=== PATIENT | female | born 1935 | race Two or more races ===

== ENCOUNTER 2017-11-03 03:34 | Inpatient (IN) | payer MEDICARE, OTHER ==
[~2017-11-03] VITALS: Ht 149.9 cm; Wt 62.6 kg
--- NOTE | 2017-11-03 03:45 | NUR ---
PT BIBRA 38 FROM HOME C/O SOB X20 MINS DENTAL PRACTITIONER. PER RA, ALBUTEROL TREATMENT GIVEN DENTAL PRACTITIONER. WHEEZES/ MINIMALLY DIMINISHED BREATH SOUNDS AUSCULATED. PT STATES CHRONIC PAIN 10/10 WAIST DOWN. PT IS AAOX4. ROOM AIR SPO2 92%. PT PLACED ON 2-3L/M NC, SPO2 97%. PT'S SKIN WNL WITH BRUISING OF THE R ARM/HAND NOTED. PER PT BRUISING IS FROM RECENT HOSPITALIZATION AND IV INSERTIONS. RESP EVEN AND MILDLY LABORED. MILD S/S OF ACUTE DISTRESS NOTED. PT SAFETY AND COMOFRT MEASURES IN PLACE. PT PLACED ON MONITOR AND POX. AWAITING MD FOR EVAL.
--- NOTE | 2017-11-03 03:51 | NUR ---
DR. SLOAN AT BEDSIDE FOR EVAL.
--- NOTE | 2017-11-03 03:52 | NUR ---
Mynor ramey in [facility] - 11/03/17 at 0357 by EVAN MD HERNANDEZ FOR DIEGO.
--- NOTE | 2017-11-03 03:56 | NUR ---
PHLEBOTOMY BEDSIDE FOR BLOOD DRAW.
--- NOTE | 2017-11-03 04:17 | NUR ---
CALLED RT FOR BREATHING TX.
[2017-11-03] MEDS ORDERED: ONDANSETRON HCL/PF 4 MG/2 ML VIAL ONE (04:18)
[2017-11-03] MEDS ORDERED: MORPHINE SULFATE INJ 4 MG/ML DISP.SYRIN ONE (04:18)
--- NOTE | 2017-11-03 04:21 | NUR ---
RT BEDSIDE WITH PT.
[2017-11-03 04:22] LABS: CALCIUM, SERUM 8.8 mg/dL (8.5-10.1); CARBON DIOXIDE 22 mmol/L (21-32); CHLORIDE 104 mmol/L (98-107); GLUCOSE 120 mg/dL (74-106); SODIUM SERUM 137 mmol/L (136-145); UREA NITROGEN, BLOOD 15 mg/dL (7-18)
[2017-11-03] MEDS ORDERED: ALBUTEROL FS 2.5 MG/3 ML VIAL.NEB ONE (04:26)
[2017-11-03 04:27] LABS: INR 0.95 (0.87-1.13)
[2017-11-03] MEDS ORDERED: methylPREDNISolone SOD SUCC 125 MG/2ML VIAL ONE (04:29)
[2017-11-03 04:30] LABS: TROPONIN I < 0.017 ng/mL (0.00-0.056)
[2017-11-03] MEDS ORDERED: methylPREDNISolone SOD SUCC 125 MG/2ML VIAL IV ONE (04:30)
[2017-11-03] MEDS ORDERED: ALBUTEROL FS 2.5 MG/0.5 ML VIAL.NEB NEB ONE (04:30)
[2017-11-03] MEDS ORDERED: ONDANSETRON HCL/PF - ER 4 MG/2 ML VIAL IV ONE (04:30)
[2017-11-03] MEDS ORDERED: MORPHINE SULFATE INJ 2 MG/ML DISP.SYRIN IV ONE (04:30)
[2017-11-03] MEDS ORDERED: IPRATROPIUM NEB FS 0.5 MG/2.5 ML AMPUL.NEB NEB ONE (04:30)
[2017-11-03 04:35] LABS: ALANINE AMINOTRANSFERASE 30 U/L (12-78); ALBUMIN 3.3 g/dL (3.4-5.0); ALKALINE PHOSPHATASE 43 U/L (46-116); ASPARTATE AMINOTRANSFERASE 26 U/L (15-37); B-TYPE NATRIURETIC PEPTIDE 1336 PG/ML (0-125); BILIRUBIN,DIRECT 0.1 mg/dL (0.0-0.2); BILIRUBIN,TOTAL 0.5 mg/dL (0.2-1.0); TOTAL PROTEIN, SERUM 6.6 g/dL (6.4-8.2)
[2017-11-03] MEDS ORDERED: LEVOFLOXACIN 750 MG /D5W 150ML 150 ML IV ONE (04:48)
[2017-11-03 04:56] LABS: BASOPHILS % (AUTO) 0.2 % (0.0-2.0); EOSINOPHILS % (AUTO) 9.1 % (0.0-6.0); HEMATOCRIT 35 % (33-45); HEMOGLOBIN 11.8 g/dL (11.5-14.8); LYMPHOCYTES # (AUTO) 2.7 /CMM (0.8-4.8); LYMPHOCYTES % (AUTO) 32.6 % (20.0-44.0); MEAN CORPUSCULAR HGB CONC 34 g/dl (31.0-36.0); MEAN CORPUSCULAR VOLUME 100 fL (82-100); MONOCYTES # (AUTO) 1.1 /CMM (0.1-1.30); MONOCYTES % (AUTO) 12.9 % (2.0-12.0); NEUTROPHILS # (AUTO) 3.6 /CMM (1.8-8.9); NEUTROPHILS % (AUTO) 45.2 % (43.0-81.0); PLATELET COUNT (AUTO) 247 /CMM (150-450); RDW COEFFICIENT OF VARIATION 13.8 (11.5-15.0)
[2017-11-03 04:59] LABS: ABG BASE EXCESS -4.8 mmol/L; ABG OXYGEN SATURATION 89.6 % (92.0-98.5); ABG PCO2 38.2 mmHg (35.0-45.0); ABG PH 7.346 (7.350-7.450); ABG PO2 61.6 mmHg (75.0-100.0); AaDO2 42.4 mmHg; COHb 0.6 % (0.5-1.5); MetHb 0.3 % (0.0-1.5); O2Hb 88.8 % (94.0-97.0); SITE, ABG Right Radial; VENT MODE, BG RA
[2017-11-03] MEDS ORDERED: ACETAMINOPHEN 325 MG TABLET PO PRN (05:00)
[2017-11-03] MEDS ORDERED: Z GUARD REMEDY 2 OZ OINT TP PRN (05:00)
[2017-11-03] MEDS ORDERED: LEVOFLOXACIN 750 MG /D5W 150ML PIGGYBACK IV ONE (05:00)
[2017-11-03] MEDS ORDERED: MAGNESIUM HYDROXIDE 30 ML UDC PO PRN (05:00)
[2017-11-03] MEDS ORDERED: HYDROCODONE/APAP 5/325MG 1 EACH TABLET PO PRN (05:00)
[2017-11-03] MEDS ORDERED: MAG HYDROX/AL HYDROX/SIMETH 30 ML UDC PO PRN (05:00)
[2017-11-03] MEDS ORDERED: ONDANSETRON HCL/PF 4 MG/2 ML VIAL IVP PRN (05:00)
[2017-11-03] MEDS ORDERED: ZOLPIDEM TARTRATE 5 MG TABLET PO PRN (05:00)
[2017-11-03] MEDS ORDERED: FUROSEMIDE 20 MG/2 ML VIAL IV ONE (05:00)
--- NOTE | 2017-11-03 05:09 | NUR ---
TELE 324-2
--- NOTE | 2017-11-03 05:16 | NUR ---
PT AND PT'S DAUGHTER UNABLE TO PROVIDE LIST OF HOME MEDICATIONS. PT UNABLE TO RECAL HOME MEDICATION. PT'S DAUGHTER STATES SHE WILL "TRY AND BRING THE LIST TOMORROW". MADE AWARE.
[2017-11-03 05:35] VITALS: BP 141/70
[2017-11-03 05:38] LABS: THYROID STIMULATING HORMONE 2.248 uIU/mL (0.358-3.74)
[2017-11-03 05:48] LABS: RED BLOOD CELL COUNT(AUTO) 3.23 MIL/uL (4.0-5.2); WHITE BLOOD COUNT (AUTO) 7.6 K/uL (4.3-11.0)
[2017-11-03 06:28] VITALS: BP 141/70
--- NOTE | 2017-11-03 06:30 | NUR ---
FAMILY ENGAGEMENT SPECIALIST NOTES AWAKE & RESPONSIVE. NOT IN ANY DISTRESS. NO SOB NOTED. DENIES ANY PAIN OR DISCOMFORT AT THIS TIME. ON TELE SR @ 96 WITH IV-HL PATENT & INTACT. MONITORED ACCORDINGLY. CALL LIGHT WITHIN REACH. BED IN LOWEST POSITION. SR UP X 2 FOR SAFETY. WILL ENDORSE TO NEXT SHIFT.
--- NOTE | 2017-11-03 07:13 | NUR ---
TRIM AND BURR OPERATOR OPENING NOTES RECEIVED PT FROM NIGHTSHIFT NURSE IN STABLE CONDITION. PT IS A/O X3. NO SOB NOTED AT THIS TIME. BREATHING IS EVEN AND UNLABORED PT STATES "MY BREATHING HAS GOTTEN MUCH BETTER." SHE IS SATING @ 96% ON RA. SHE IS CURRENTLY SINUS RHYTHM ON THE TELE MONITOR WITH A HR OF 87. IV TO RIGHT RA NOTED TO BE PATENT AND INTACT. NO REDNESS OR SIGNS OF INFILTRATION NOTED. BED IN LOW LOCKED POSITION, SIDE RAILS UP X2, CALL LIGHT WITHIN REACH. PT'S DAUGHTER AT BEDSIDE. WILL CONTINUE TO MONITOR
[2017-11-03] MEDS: ALBUTEROL FS 2.5 MG/3 ML VIAL.NEB NEB SCH ×4 (07:35→23:39)
[2017-11-03 08:00] VITALS: BP 135/86
--- NOTE | 2017-11-03 08:15 | NUR ---
MED RECON: A CONSENT WAS SENT TO [facility] TO OBTAIN PT'S MEDICAL RECORDS PER DR. VEE;S REQUEST IN ORDER TO GET A COMPLETE HOME MEDICATION LIST PT WAS RECENTLY DISCHARGED FROM THEIR FACILITY. PT SIGNED CONSENT IN ORDER TO DO SO. FAX WAS SUCCESSFULLY STN. WILL ALERT MED RECON NURSE ONCE A LIST IS OBTAINED.
[2017-11-03] MEDS: PANTOPRAZOLE 40 MG TABLET.DR PO SCH (08:43)
[2017-11-03] MEDS: ASPIRIN 325 MG TABLET PO SCH (08:44)
[2017-11-03] MEDS: CLOPIDOGREL BISULFATE 75 MG TABLET PO SCH (08:44)
[2017-11-03] MEDS: methylPREDNISolone SOD SUCC 40 MG/ML VIAL IV SCH ×2 (08:44→13:01)
[2017-11-03] MEDS ORDERED: FUROSEMIDE 20 MG/2 ML VIAL IV SCH (09:00)
--- NOTE | 2017-11-03 09:02 | NUR ---
MS RN NOTES: MED RECON FOLLOW UP DOCUMENTS OBTAINED FROM [facility]. MED RECON NURSE NOTIFIED AND MEDICATION WERE IMOUTED INTO THE SYSTEM. WILL NOTIFY .
[2017-11-03] MEDS ORDERED: CARV6.252 PO (10:25)
[2017-11-03] MEDS ORDERED: HYDR-552 PO (10:25)
[2017-11-03] MEDS ORDERED: FERR325T23 PO (10:25)
[2017-11-03] MEDS ORDERED: OLOP5DRO EACHEYE (10:25)
[2017-11-03] MEDS ORDERED: ASPI-1152 PO (10:25)
[2017-11-03] MEDS ORDERED: ATOR40TA PO (10:26)
[2017-11-03] MEDS ORDERED: CLOP75TA15 PO (10:26)
[2017-11-03] MEDS ORDERED: BIMA2.5D5 EACHEYE (10:26)
[2017-11-03] MEDS ORDERED: BENZ-38 PO (10:26)
[2017-11-03] MEDS ORDERED: MULT-1168 PO (10:26)
[2017-11-03] MEDS ORDERED: CALC-7 PO (10:26)
[2017-11-03] MEDS ORDERED: CYCL5TAB PO (10:26)
[2017-11-03] MEDS: IPRATROPIUM NEB FS 0.5 MG/2.5 ML AMPUL.NEB NEB SCH ×3 (15:40→23:40)
[2017-11-03] MEDS: HYDROCODONE/APAP 10/325MG 1 EA TABLET PO PRN ×2 (15:45→20:31)
[2017-11-03 16:00] VITALS: BP 118/68
[2017-11-03] MEDS: ATORVASTATIN 40 MG TABLET PO SCH (18:28)
--- NOTE | 2017-11-03 18:49 | NUR ---
MS RN CLOSING NOTES PT REMAINS IN STABLE CONDITION. ALL NEEDS WERE MET DURING SHIFT AND ORDERS CARRIED OUT ACCORDINGLY. ALL DUE MEDS GIVEN. BREATHING REMAINS EVEN AND INTACT. NO SOB NOTED AT THIS TIME. PAIN PROPERLY MANAGED WITH INCREASED NORCO DOSE. SAFETY MEASURES REMAIN IN PLACE. FAMILY AT BEDSIDE. WILL ENDORSE TO NIGHTSHIFT NURSE FOR RAMANA
--- NOTE | 2017-11-03 19:30 | NUR ---
MS/RN NOTES RECEIVED PT. LYING IN BED. PT. IS AWAKE, ALERT AND ORIENTED X4. BREATHING EVEN AND UNLABORED ON ROOM AIR. NO SOB, RESPIRATORY DISTRESS OR COMPLAINTS OF PAIN NOTED AT THIS TIME. PT. WITH RIGHT FOREARM 18 GAUGE IV SALINE LOCK PRESENT, PATENT AND INTACT. PT. WITH FAMILY MEMBER PRESENT AT BEDSIDE. BED LOCKED AND IN LOWEST POSITION, SIDE RAILS UP X3, BED ALARM ON, CALL LIGHT WITHIN REACH, WILL CONTINUE TO MONITOR.
[2017-11-03 20:00] VITALS: BP 130/67
[2017-11-03] MEDS: LATANOPROST EYE DROP 0.005% 2.5 ML BOTTLE OP SCH (22:00)
--- NOTE | 2017-11-03 22:50 | NUR ---
MS/RN NOTES PT. LATANOPROST EYE DROPS NOT AVAILABLE IN PT. GARCIA. CALLED NURSING MANAGER TRANSFER PER MANAGER TRANSFER NEIDA MEDICATION IS NOT AVAILABLE AND WILL HAVE TO BE PROVIDED BY PHARMACY TOMORROW. WILL ENDORSE TO DAYSHIFT NURSE. WILL CONTINUE TO MONITOR.
[2017-11-04] MEDS: HYDROCODONE/APAP 10/325MG 1 EA TABLET PO PRN ×4 (00:45→22:53)
--- NOTE | 2017-11-04 02:10 | NUR ---
MS/RN NOTES GAVE REPORT AND ENDORSED PT. TO ANTOINE ANDERSON. PT. IS LYING IN BED RESTING. BREATHING EVEN AND UNLABORED ON ROOM AIR. NO SOB, RESPIRATORY DISTRESS OR COMPLAINTS OF PAIN NOTED AT THIS TIME.
--- NOTE | 2017-11-04 02:16 | NUR ---
MS RN NOTES: RECEIVED PT FROM RNPHILIP. PT ON ROOM AIR AND TOLERATING WELL. PT AWAKE AT THIS TIME BEING ASSISTED WITH BEING CLEANED AND CHANGED. PT HAS IV ON R FOREARM #18G AND IS PATENT AND INTACT. CURRENTLY S/L. BED ALARM ACTIVATED. CALL LIGHT WITHIN PT'S REACH. BED KEPT IN LOW, LOCKED POSITION, AND SIDE RAILS X 2UP. WILL CONTINUE TO MONITOR PT.
[2017-11-04] MEDS: IPRATROPIUM NEB FS 0.5 MG/2.5 ML AMPUL.NEB NEB SCH ×6 (02:55→23:06)
[2017-11-04] MEDS: ALBUTEROL FS 2.5 MG/3 ML VIAL.NEB NEB SCH ×6 (02:56→23:06)
[2017-11-04 06:18] LABS: BASOPHILS % (AUTO) 0.2 % (0.0-2.0); HEMATOCRIT 30 % (33-45); HEMOGLOBIN 10.1 g/dL (11.5-14.8); LYMPHOCYTES # (AUTO) 0.9 /CMM (0.8-4.8); LYMPHOCYTES % (AUTO) 14.6 % (20.0-44.0); MEAN CORPUSCULAR HGB CONC 34 g/dl (31.0-36.0); MEAN CORPUSCULAR VOLUME 99 fL (82-100); MONOCYTES # (AUTO) 0.2 /CMM (0.1-1.30); MONOCYTES % (AUTO) 3.5 % (2.0-12.0); NEUTROPHILS # (AUTO) 4.9 /CMM (1.8-8.9); NEUTROPHILS % (AUTO) 81.7 % (43.0-81.0); PLATELET COUNT (AUTO) 228 /CMM (150-450); RDW COEFFICIENT OF VARIATION 14.6 (11.5-15.0)
--- NOTE | 2017-11-04 06:20 | NUR ---
MS RN CLOSING NOTES: ALL NEEDS WERE ATTENDED AND ANTICIPATED FOR. PT ON ROOM AIR AND TOLERATING WELL. PT KEPT CLEAN, DRY, AND COMFORTABLE. PT ASLEEP AT THIS TIME AND RESTING COMFORTABLY. NO S/S OF DISTRESS. IV REMAINS INTACT. CURRENTLY S/L. BED ALARM ACTIVATED. CALL LIGHT WITHIN PT'S REACH. BED KEPT IN LOW, LOCKED POSITION, AND SIDE RAILS X 2UP. WILL ENDORSE TO AM NURSE FOR RAMANA.
[2017-11-04 06:39] LABS: TROPONIN I < 0.017 ng/mL (0.00-0.056)
[2017-11-04 06:46] LABS: ALANINE AMINOTRANSFERASE 28 U/L (12-78); ALBUMIN 3.1 g/dL (3.4-5.0); ALKALINE PHOSPHATASE 35 U/L (46-116); ASPARTATE AMINOTRANSFERASE 27 U/L (15-37); BILIRUBIN,TOTAL 0.4 mg/dL (0.2-1.0); CALCIUM, SERUM 8.5 mg/dL (8.5-10.1); CARBON DIOXIDE 27 mmol/L (21-32); CHLORIDE 100 mmol/L (98-107); CREATININE 1.2 mg/dL (0.6-1.3); GLUCOSE 165 mg/dL (74-106); MAGNESIUM 1.7 mg/dL (1.8-2.4); PHOSPHORUS 3.3 mg/dL (2.5-4.9); POTASSIUM 3.9 mmol/L (3.5-5.1); SODIUM SERUM 137 mmol/L (136-145); TOTAL PROTEIN, SERUM 6.2 g/dL (6.4-8.2); UREA NITROGEN, BLOOD 22 mg/dL (7-18)
--- NOTE | 2017-11-04 06:54 | NUR ---
MS RN NOTES: DR. VEE AT BEDSIDE.
--- NOTE | 2017-11-04 07:35 | NUR ---
RN OPENING NOTES RECEIVED PT. PT IS STABLE AND RESTING IN BED. NO S/S OF RESP DISTRESS OR SOB. PT DOES NOT APPEAR TO BE IN PAIN AT THIS TIME. IV ACCESS LOCATED ON RIGHT FA 18G, CURRENTLY SL. PT TO HAVE PT/OT EVAL & CXR TODAY. SAFETY MEASURES IN PLACE, CALL LIGHT WITHIN REACH. WILL CONTINUE TO MONITOR.
[2017-11-04] MEDS: Magnesium 1GM/D5W 100ML PREMIX 100 ML IV SCH ×2 (07:58→08:35)
[2017-11-04 08:00] VITALS: BP 115/57
[2017-11-04] MEDS: ASPIRIN 325 MG TABLET PO SCH (08:10)
[2017-11-04] MEDS: PANTOPRAZOLE 40 MG TABLET.DR PO SCH (08:10)
[2017-11-04] MEDS: CALCIUM CARB 250MG /VITAMIN D 1 UDTAB PO SCH (08:11)
[2017-11-04] MEDS: MULTIPLE VIT (LYCOPENE/FA/MV,CA,IRON,MIN/LUT)1 TAB PO SCH (08:11)
[2017-11-04] MEDS: FUROSEMIDE 20 MG TABLET PO SCH (08:11)
[2017-11-04] MEDS: OLOPATADINE HCL 0.1% OPHTH BOTTLE EACHEYE SCH ×2 (08:11→18:16)
[2017-11-04] MEDS: CARVEDILOL 6.25 MG TABLET PO SCH ×2 (08:12→17:00)
[2017-11-04 08:18] VITALS: BP 115/57
[2017-11-04] MEDS ORDERED: methylPREDNISolone SOD SUCC 40 MG/ML VIAL IV SCH (09:00)
[2017-11-04] MEDS: FERROUS SULFATE (325 MG) 325 MG/TAB TABLET PO SCH (09:51)
[2017-11-04] MEDS: CLOPIDOGREL BISULFATE 75 MG TABLET PO SCH (09:51)
--- NOTE | 2017-11-04 10:30 | NUR ---
RN NOTES PT IV FOUND TO BE INFILTRATED. RIGHT FA IV ACCESS REMOVED. 22G IV CATH INSERTED INTO LEFT FA. WILL CONTINUE TO MONITOR.
[2017-11-04] MEDS: predniSONE 10 MG TABLET PO SCH (13:18)
[2017-11-04 15:58] VITALS: BP 109/56
[2017-11-04] MEDS: ATORVASTATIN 40 MG TABLET PO SCH (18:17)
--- NOTE | 2017-11-04 18:45 | NUR ---
RN CLOSING NOTE PT IN BED RESTING. NO S/S OF RESP DISTRESS OR SOB. NO C/O PAIN. PER MD NOTE, TO BEGIN DC PLANNING FOR PT. ALL PT NEEDS ANTICIPATED AND MET. SAFETY MEASURES IN PLACE, CALL LIGHT WITHIN REACH. WILL ENDORSE TO PAPER PRODUCTION ENGINEER FOR RAMANA.
--- NOTE | 2017-11-04 19:40 | NUR ---
RN INITIAL NOTES: RECEIVED REPORT FORM SIMON SCHULTZ, PT IN BED, AWAKE, A/O X3, ON RA RESPIRATION EVEN AND UNLABORED, DENIES ANY PAIN OR DISCOMFORT AT THIS TIME. IV ACCESS PATENT AND FLUSHING WELL, NOTED DRY BLOOD AROUND THE SITE, GOOD BLOOD RETURN NOTED. BLE OFFLOADED. SAFETY PRECAUTIONS FOR FALL INITIATED CALL LIGHT IN REACH, WILL CONTINUE TO MONITOR
[2017-11-04 20:00] VITALS: BP 126/70
[2017-11-04 20:36] VITALS: BP 126/70
[2017-11-04] MEDS: LATANOPROST EYE DROP 0.005% 2.5 ML BOTTLE OP SCH (22:00)
--- NOTE | 2017-11-04 22:53 | NUR ---
PRN NORCO: PT C/O PAIN ON HER WAIST DOWN TO RIGHT FOOT, STATED ITS 01/30 PRN NORCO 10/325 MG TAB PO ADMINISTERED TO THE PT AT THIS TIME, WILL CONTINUE TO MONITOR AND REASSESS
[2017-11-05] MEDS: IPRATROPIUM NEB FS 0.5 MG/2.5 ML AMPUL.NEB NEB SCH ×4 (02:58→14:58)
[2017-11-05] MEDS: ALBUTEROL FS 2.5 MG/3 ML VIAL.NEB NEB SCH ×4 (02:58→14:58)
[2017-11-05] MEDS: HYDROCODONE/APAP 10/325MG 1 EA TABLET PO PRN ×2 (03:51→08:33)
--- NOTE | 2017-11-05 03:51 | NUR ---
PRN NORCO: PT C/O 01/30 RIGHT HIP PAIN REQUESTING FOR NORCO, PRN NORCO 10/325 MG TAB PO ADMINISTERED TO THE PT, WILL CONTINUE TO MONITOR AND REASSESS
--- NOTE | 2017-11-05 05:22 | NUR ---
PRN TYLENOL: PT C/O 09/30 RIGHT HIP PAIN REQUESTING FOR PAIN MEDICATION, PRN TYLENOL 650 MG TAB PO ADMINISTERED TO THE PT AT THIS TIME, NORCO NOT DUE TILL 0800AM
--- NOTE | 2017-11-05 06:52 | NUR ---
RN CLOSING NOTES: PT IN BED, DENIES ANY PAIN OR DISCOMFORT AT THIS TIME. IV ACCESS REMAINS PATENT AND FLUSHING WELL, ON HL. BLE OFFLOADED. VS REMAINS STABLE, NEEDS ATTENDED. FOR DC PLANNING, EXIT CARE COMPLETED. SAFETY PRECAUTIONS FOR FALL REMAINS ENGAGED, CALL LIGHT IN REACH, WILL ENDORSE TO DAY RN FOR RAMANA.
--- NOTE | 2017-11-05 07:23 | NUR ---
RN OPENING NOTES RECEIVED PT. PT IS STABLE AND RESTING IN BED. NO S/S OF RESP DISTRESS OR SOB. PT DOES NOT APPEAR TO BE IN PAIN AT THIS TIME. IV ACCESS LOCATED ON LEFT FA 22G, CURRENTLY SL. PT TO HAVE F/U PT ON 11/05 OR 11/06. PER MD NOTE, D/C PLANNING TO BEGIN. SAFETY MEASURES IN PLACE, CALL LIGHT WITHIN REACH. WILL CONTINUE TO MONITOR.
[2017-11-05 08:21] VITALS: BP 116/53
[2017-11-05] MEDS: FERROUS SULFATE (325 MG) 325 MG/TAB TABLET PO SCH (08:35)
[2017-11-05] MEDS: CALCIUM CARB 250MG /VITAMIN D 1 UDTAB PO SCH (08:35)
[2017-11-05] MEDS: MULTIPLE VIT (LYCOPENE/FA/MV,CA,IRON,MIN/LUT)1 TAB PO SCH (08:35)
[2017-11-05] MEDS: CLOPIDOGREL BISULFATE 75 MG TABLET PO SCH (08:35)
[2017-11-05] MEDS: predniSONE 10 MG TABLET PO SCH (08:35)
[2017-11-05] MEDS: ASPIRIN 325 MG TABLET PO SCH (08:36)
[2017-11-05] MEDS: OLOPATADINE HCL 0.1% OPHTH BOTTLE EACHEYE SCH (08:36)
[2017-11-05] MEDS: PANTOPRAZOLE 40 MG TABLET.DR PO SCH (08:36)
[2017-11-05] MEDS: FUROSEMIDE 20 MG TABLET PO SCH (08:36)
[2017-11-05] MEDS: CARVEDILOL 6.25 MG TABLET PO SCH (08:51)
[2017-11-05 09:00] VITALS: BP 116/53
[2017-11-05] MEDS ORDERED: GABAPENTIN 300 MG CAPSULE PO ONE (11:30)
[2017-11-05] MEDS ORDERED: diphenhydrAMINE HCL ELIX 25 MG/10 ML UDC PO PRN (14:30)
[2017-11-05 16:26] VITALS: BP 105/58
--- NOTE | 2017-11-05 17:00 | NUR ---
DISCHARGE NOTE PT DISCHARGED HOME. DISCHARGE EDUCATION PROVIDED, PT VERBALIZED UNDERSTANDING. VSS, RESPIRATIONS STABLE. PT HAS NO C/O PAIN AT THIS TIME. PRESCRIPTION COPIED, GIVEN TO PT, WITH COPY PLACED IN CHART. DISCHARGE INSTRUCTIONS AND BELONGINGS SHEET SIGNED AND COPIED. PICTURES TAKEN OF PT'S WOUNDS, PLACED IN CHART. IV ACCESS AND ID BAND REMOVED. PT LEFT HOSPITAL WITH FAMILY MEMBERS IN PRIVATE VEHICLE.
== END 2017-11-05 16:42 | disposition home or self-care (01) | DRG 291 ==
LOC: ER 03:35 → TELE 05:14 → MED 08:33
PROVIDERS: ADMIT Internal Medicine; ATTEND Internal Medicine
DX: I11.0 Hypertensive heart disease with heart failure (principal); J96.01 Acute respiratory failure with hypoxia; E44.0 Moderate protein-calorie malnutrition; E87.2 Acidosis; E11.29 Type 2 diabetes mellitus with other diabetic kidney complication; I27.20 Pulmonary hypertension, unspecified; E83.42 Hypomagnesemia; N25.89 Other disorders resulting from impaired renal tubular function; J20.9 Acute bronchitis, unspecified; I25.10 Atherosclerotic heart disease of native coronary artery without angina pectoris; I50.23 Acute on chronic systolic (congestive) heart failure; E78.5 Hyperlipidemia, unspecified; I70.90 Unspecified atherosclerosis; G89.4 Chronic pain syndrome; M06.9 Rheumatoid arthritis, unspecified; E66.9 Obesity, unspecified; Z68.27 Body mass index [BMI] 27.0-27.9, adult; Z95.5 Presence of coronary angioplasty implant and graft; J44.9 Chronic obstructive pulmonary disease, unspecified; I34.0 Nonrheumatic mitral (valve) insufficiency
CPT/HCPCS: 36415; 36600; 71045-TC; 80048-TC; 80053-TC; 80061-TC; 80076-TC; 82746; 82803-TC; 83540-TC; 83735-TC; 83880; 84100-TC; 84443-TC; 84484-TC; 85025-TC; 85730-TC; 87081-TC; 93307-TC; 93970-TC; A4606; J1940; J1956; J2270; J2405; J2920; J2930; J3475; Q0163; Z7610

== ENCOUNTER 2017-11-13 12:02 | Outpatient (CLI) | payer MEDICARE, OTHER ==
[~2017-11-13 12:02] MED LIST: ASPI-1152 PO; ATOR40TA PO; BENZ-38 PO; BIMA2.5D5 EACHEYE; CALC-7 PO; CARV6.252 PO; CLOP75TA15 PO; CYCL5TAB PO; FERR325T23 PO; HYDR-552 PO; MULT-1168 PO; OLOP5DRO EACHEYE
[2017-11-13 12:15] VITALS: BP 108/52
== END 2017-11-13 23:59 | disposition home or self-care (01) ==
LOC: MSC 12:02
PROVIDERS: ATTEND Internal Medicine
DX: I11.0 Hypertensive heart disease with heart failure (principal); I50.20 Unspecified systolic (congestive) heart failure; I27.20 Pulmonary hypertension, unspecified; E78.5 Hyperlipidemia, unspecified; I70.90 Unspecified atherosclerosis; G89.4 Chronic pain syndrome; M06.9 Rheumatoid arthritis, unspecified; E66.9 Obesity, unspecified; Z68.27 Body mass index [BMI] 27.0-27.9, adult; E44.0 Moderate protein-calorie malnutrition; I25.10 Atherosclerotic heart disease of native coronary artery without angina pectoris

== ENCOUNTER 2019-08-16 22:28 | Inpatient (IN) | payer MEDICARE, OTHER ==
[~2019-08-16] VITALS: Ht 167.6 cm; Wt 54.0 kg
[~2019-08-16 22:28] MED LIST changes: +HYDR-4384 PO; -HYDR-552 PO
[2019-08-16] MEDS ORDERED: FUROSEMIDE 40 MG/4 ML VIAL IV ONE (23:00)
[2019-08-16] MEDS ORDERED: ALBUTEROL FS 2.5 MG/3 ML VIAL.NEB NEB ONE (23:00)
[2019-08-16] MEDS ORDERED: NITROGLYCERIN 0.4 MG/TAB BOTTLE SL ONE (23:00)
--- NOTE | 2019-08-16 23:00 | NUR ---
CAR FROM HOME TO ER BED 4. AAOX4, ON RESP DISTRESS, TACHYPNEAC AND SHALLOW BREATHING. BROUGHT IN FOR SHORTNESS OF BREATH. PT WAS DX WITH BRONCHITIS2 WEEKS AGO. AT BEDSIDE. ORDERS RECEIVED NTOED AND CARRIED OUT
[2019-08-16] MEDS ORDERED: FUROSEMIDE 40 MG/4 ML VIAL ONE (23:13)
[2019-08-16] MEDS ORDERED: NITROGLYCERIN 0.4 MG/TAB BOTTLE ONE (23:13)
[2019-08-16] MEDS ORDERED: ALBUTEROL FS 2.5 MG/3 ML VIAL.NEB ONE (23:18)
[2019-08-16 23:31] LABS: BASOPHILS % (AUTO) 0.2 % (0.0-2.0); EOSINOPHILS % (AUTO) 2.8 % (0.0-6.0); HEMATOCRIT 39 % (33-45); HEMOGLOBIN 12.6 g/dL (11.5-14.8); LYMPHOCYTES # (AUTO) 2.3 /CMM (0.8-4.8); LYMPHOCYTES % (AUTO) 16.7 % (20.0-44.0); MEAN CORPUSCULAR HGB CONC 33 g/dl (31.0-36.0); MEAN CORPUSCULAR VOLUME 101 fL (82-100); MONOCYTES # (AUTO) 0.5 /CMM (0.1-1.30); MONOCYTES % (AUTO) 3.7 % (2.0-12.0); NEUTROPHILS # (AUTO) 10.5 /CMM (1.8-8.9); NEUTROPHILS % (AUTO) 76.6 % (43.0-81.0); PLATELET COUNT (AUTO) 187 /CMM (150-450); RED BLOOD CELL COUNT(AUTO) 3.83 MIL/uL (4.0-5.2); WHITE BLOOD COUNT (AUTO) 13.8 K/uL (4.3-11.0)
--- NOTE | 2019-08-16 23:35 | NUR ---
called for tele bed
[2019-08-16 23:42] LABS: CALCIUM, SERUM 8.6 mg/dL (8.5-10.1); CARBON DIOXIDE 27 mmol/L (21-32); CHLORIDE 98 mmol/L (98-107); CREATININE 0.9 mg/dL (0.6-1.3); GLUCOSE 187 mg/dL (74-106); POTASSIUM 4.3 mmol/L (3.5-5.1); SODIUM SERUM 133 mmol/L (136-145); UREA NITROGEN, BLOOD 15 mg/dL (7-18)
--- NOTE | 2019-08-16 23:48 | NUR ---
PREPAPRED FOR INTUBATION
--- NOTE | 2019-08-16 23:48 | NUR ---
VS 112 215/98 30 94%
--- NOTE | 2019-08-16 23:50 | NUR ---
RT NOTE Pt rec'd on NRB mask @ 15LPM. Pt altered and showed signs of resp distress. Pt orally intubated via ETT sz#7.5 secured at 23CM at the lipline per physician Tapan casper. CO2 colormetric color change noted. clear breath sounds heard bilaterally. Pt placed on [facility] vent on noted settings as charted. Alarms are set and audible. Vent plugged into red outlet. ambu bag bedside. Abg to be taken in 30 minutes post intubation. Waiting chest Xray results. Will continue to monitor. Addendum: 08/17/19 at 0019 by GARETT PENALOZA RT Amended: Links added.
--- NOTE | 2019-08-16 23:53 | NUR ---
ETOMIDATE 20MG IV GIVEN
--- NOTE | 2019-08-16 23:54 | NUR ---
SUCCICHOLINE 60MG IV X 1
[2019-08-16 23:55] LABS: ALANINE AMINOTRANSFERASE 22 U/L (12-78); ALBUMIN 3.5 g/dL (3.4-5.0); ALKALINE PHOSPHATASE 62 U/L (46-116); ASPARTATE AMINOTRANSFERASE 30 U/L (15-37); B-TYPE NATRIURETIC PEPTIDE 1289 PG/ML (0-125); BILIRUBIN,DIRECT 0.2 mg/dL (0.0-0.2); BILIRUBIN,TOTAL 0.4 mg/dL (0.2-1.0); TOTAL PROTEIN, SERUM 7.3 g/dL (6.4-8.2)
--- NOTE | 2019-08-16 23:55 | NUR ---
INTUBATED SUCCESSFULLY. ET 7.5, 23 @ LIP
[2019-08-16] MEDS ORDERED: PROPOFOL 100 ML ONE (23:57)
[2019-08-17] VITALS (78 sets, daily range): BP systolic 65–148; BP diastolic 30–101
[2019-08-17] MEDS ORDERED: SUCCINYLCHOLINE CHLORIDE 20 MG/ML VIAL IV ONE
[2019-08-17] MEDS ORDERED: ETOMIDATE 2 MG/ML VIAL IV ONE
--- NOTE | 2019-08-17 00:01 | NUR ---
VENT SETTING AC 16 VT500 FIO2: 100%
--- NOTE | 2019-08-17 00:01 | NUR ---
VS 109, 137/75, 16, 100%
[2019-08-17] MEDS: PROPOFOL 100 ML IV PRN ×5 (00:02→19:03)
--- NOTE | 2019-08-17 00:02 | NUR ---
PROPOFOL STARTED @ 10MCG
--- NOTE | 2019-08-17 00:10 | NUR ---
VS 101, 141/77, 16, 99%. PROPOFOL INCREASE TO 15MCG
--- NOTE | 2019-08-17 00:18 | NUR ---
RECTAL TEMP 104.4. AWARE
--- NOTE | 2019-08-17 00:18 | NUR ---
FRANKS CATH INSERTED. FR 16 OUT 250ML
--- NOTE | 2019-08-17 00:19 | NUR ---
recieved [id number]
[2019-08-17] MEDS ORDERED: ACETAMINOPHEN 650 MG/SUPP.RECT RC ONE ×2 (00:20→00:30)
[2019-08-17] MEDS: AZTREONAM 1 G in IV NS 0.9% 100 ML IV ONE ×2 (00:24→00:57)
--- NOTE | 2019-08-17 00:24 | NUR ---
tylenol supp given
[2019-08-17] MEDS ORDERED: LEVOFLOXACIN 750 MG /D5W 150ML PIGGYBACK IV ONE (00:30)
--- NOTE | 2019-08-17 00:30 | NUR ---
suction white frothy sputum blood tinged
[2019-08-17] MEDS ORDERED: AZTREONAM 1 G VIAL ONE (00:40)
[2019-08-17] MEDS ORDERED: LEVOFLOXACIN 750 MG /D5W 150ML 150 ML IV ONE (00:40)
--- NOTE | 2019-08-17 01:25 | NUR ---
REPORT GIVEN TO ANTOINE BARRAZA FOR RAMAAN
--- NOTE | 2019-08-17 01:37 | NUR ---
RT NOTE DECREASED PEEP TO 0 PER MD ORDERS Addendum: 08/17/19 at 0212 by GARETT PENALOZA RT Amended: Links added.
--- NOTE | 2019-08-17 01:41 | NUR ---
RT AT BEDSIDE FOR ABG AND ET TO BE PULLED BY 2 CM PER RADILOGY RECOMMENDATION
--- NOTE | 2019-08-17 01:48 | NUR ---
PEEP DISCONTINUED D/T VS LOW
--- NOTE | 2019-08-17 01:48 | NUR ---
RT NOTE WITHDREW ETT TO 21CM. WAITING ON CHEST XRAY RESULTS Addendum: 08/17/19 at 0214 by GARETT PENALOZA RT Amended: Links added.
--- NOTE | 2019-08-17 01:48 | NUR ---
ET AT 21 @ LIP
--- NOTE | 2019-08-17 02:01 | NUR ---
PT TRANSPORTED TO UNIT ON [address] WITH EMT, RT AND RN AT BEDSIDE W/ ACLS PROTOCOL. NAD NOTED DURING TRANSPORT.
[2019-08-17 02:04] LABS: ABG BASE EXCESS -1.2 mmol/L; ABG PCO2 37.5 mmHg (35.0-45.0); ABG PH 7.408 (7.350-7.450); ABG PO2 280.6 mmHg (75.0-100.0); AaDO2 394.9 mmHg; COHb 0.3 % (0.5-1.5); MetHb 0.6 % (0.0-1.5); O2Hb 98.1 % (94.0-97.0); PEEP,BG 0 cm H2O; SITE, ABG Right Brachial; VENT MODE, BG AC 16 500 100% +0
[2019-08-17] MEDS ORDERED: OSELTAMIVIR PHOSPHATE SUSP 6 MG/ML BOTTLE GT ONE (03:00)
[2019-08-17] MEDS ORDERED: Z GUARD REMEDY 2 OZ OINT TP PRN (03:00)
[2019-08-17] MEDS ORDERED: MEROPENEM 1 G in IV NS 0.9% 100 ML IV SCH ×2 (03:00→15:00)
[2019-08-17] MEDS ORDERED: BUMETANIDE INJ 6 MG in IV NS 0.9% 36 ML IV ONE (03:00)
[2019-08-17] MEDS ORDERED: ONDANSETRON HCL/PF 4 MG/2 ML VIAL IVP PRN (03:00)
[2019-08-17] MEDS: ALBUTEROL FS 2.5 MG/0.5 ML VIAL.NEB NEB SCH ×6 (03:26→23:40)
[2019-08-17] MEDS: IPRATROPIUM NEB FS 0.5 MG/2.5 ML AMPUL.NEB NEB SCH ×6 (03:26→23:40)
[2019-08-17] MEDS ORDERED: MEROPENEM 1 G in IV NS 0.9% 100 ML IV ONE (03:30)
[2019-08-17] MEDS ORDERED: VANCOMYCIN 1.25 GM in IV D5W 250 ML IV ONE (03:30)
[2019-08-17] MEDS ORDERED: MEROPENEM 1 G VIAL IV ONE (03:43)
[2019-08-17] MEDS: ENOXAPARIN SODIUM 40 MG/0.4 ML DISP.SYRIN SQ SCH ×2 (03:44→22:40)
[2019-08-17] MEDS ORDERED: BUMETANIDE INJ 0.25 MG/ML VIAL ONE (03:44)
[2019-08-17] MEDS ORDERED: VANCOMYCIN 1 GM VIAL ONE (04:59)
--- NOTE | 2019-08-17 05:35 | NUR ---
PATIENT CARE ASSOCIATE. RECEIVED THE PT FROM ER VIA [facility]. PT IS ORALLY INTUBATED, SEDATED W RODRIGO CALLES. ETT 7.5,LIP 21.AC 16,TV 500,FIO2 80%. SAT 99%. NO ACUTE DISTRESS NOTED. FURNACE PROCESS SUPERVISOR SHOWING NSR. IV RT AND LT HAND. IV DIPRIVAN 15MCG/KG/MIN. FC PATENT. URINE DRAINING. STACEY SOFT WRIST RESTRAINT CHECKED AND RELEASED. NO INJURY OR REDNESS NOTED. HOB ELEVATED. NPO. WILL CONTINUE TO MONITOR VITALS.
--- NOTE | 2019-08-17 06:22 | NUR ---
REHABILITATOR. OGT PLACED. . PROCALCITONIN 18.36. MD VEE MADE AWARE.
[2019-08-17] MEDS ORDERED: FEE PK DOSING 1 MIN EA MC ONE (07:13)
--- NOTE | 2019-08-17 07:15 | NUR ---
ACTIVITIES DIRECTOR SCOUTING OPENING NOTE RECEIVED REPORT FROM PM NURSE .PATIENT IN BED.INTUBATED WITH ETT 7.12/12@LIP LEVEL.TO READJUST ETT BY RT.TOLERATING SETTINGS WELL.NO SOB NO DISTRESS NOTED.SEDATED WITH PROPOFOL .IV LINES ARE INTACT AND PATENT.FRANKS CATH DRAINING CLEAR YELLOW URINE.ON TELE MONITOR SR HR 80'S.BED IS LOW AND IN LOCKED POSITION.CALL LIGHT IN REACH BEAD ALARM ON .SRX3.ON BILATERAL SOFT RESTRAINTS.VISUAL CHECK DONE.ALL ASPIRATION AND SAFETY MEASURES IN PLACE.WILL CONTINUE TO MONITOR.
[2019-08-17 07:26] LABS: THYROID STIMULATING HORMONE 2.006 uIU/mL (0.358-3.74)
--- NOTE | 2019-08-17 07:45 | NUR ---
BUSINESS COORDINATOR NOTE RESPIRATORY THERAPIST READJUSTED ETT PER ORDER.7.516@LIP LEVEL.AC 12.FILO2 40%.WILL CONTINUE TO MONITOR.
[2019-08-17] MEDS: OSELTAMIVIR PHOSPHATE 75 MG CAPSULE GT SCH ×2 (08:31→22:32)
[2019-08-17] MEDS: CLOPIDOGREL BISULFATE 75 MG TABLET PO SCH (08:31)
[2019-08-17] MEDS: ASPIRIN EC 81 MG TABLET.DR PO SCH (08:31)
[2019-08-17] MEDS: ACETAMINOPHEN 325 MG TABLET PO PRN ×2 (08:31→16:16)
[2019-08-17] MEDS: OLOPATADINE HCL 0.1% OPHTH BOTTLE EACHEYE SCH ×2 (08:54→16:15)
[2019-08-17] MEDS ORDERED: OLOPATADINE HCL 0.1% OPHTH BOTTLE EACHEYE SCH (09:00)
[2019-08-17] MEDS ORDERED: NOREPINEPHRINE 16 MG in IV D5W 500 ML IV PRN (09:40)
--- NOTE | 2019-08-17 09:45 | NUR ---
AVIATION PROJECT ENGINEER NOTE PATIENT BP TRENDING DOWN TO 80'S. MADE AWARE.GOT NEW ORDER TO START ON LEVO .IVF NS 500ML BOLUS.DIETARY CONSULT FOR FEEDING.WILL CONTINUE TO MONITOR.
[2019-08-17] MEDS ORDERED: IV NS 0.9% 500 ML IV ONE (10:00)
--- NOTE | 2019-08-17 10:15 | NUR ---
ASSOCIATE DIRECTOR NOTE S/P PICCLINE PLACEMENT BY LEX HSIEH IN LISSET.READY TO USE .NO NEED FOR CXRAY.
[2019-08-17 11:15] LABS: ABG BASE EXCESS 0.3 mmol/L; ABG OXYGEN SATURATION 96.3 % (92.0-98.5); ABG PCO2 36.6 mmHg (35.0-45.0); ABG PH 7.439 (7.350-7.450); ABG PO2 88.8 mmHg (75.0-100.0); AaDO2 154.3 mmHg; COHb 0.3 % (0.5-1.5); MetHb 0.3 % (0.0-1.5); O2Hb 95.7 % (94.0-97.0); PEEP,BG 0 cm H2O; SITE, ABG Right Brachial; VENT MODE, BG AC 12 500 40% +0
--- NOTE | 2019-08-17 11:28 | NUR ---
FIRE PROTECTION DESIGNER NOTE SEEN BY .UPDATED ABOUT PATIENT CONDITION WITH LABS AND ABG RESULT.NNO.CONTINUE SAME TREATMENT.WILL CONTINUE TO MONITOR.
--- NOTE | 2019-08-17 12:50 | NUR ---
DIE TESTER NOTE GOT NEW ORDER FROM AFTER READJUSTMENT OF ETT.C X RAY RESULT SEEN .GOT ORDER TO ADVANCE ETT 6 CM IN TO TRACHEA.RT BOOKER MADE AWARE
[2019-08-17] MEDS ORDERED: VANCOMYCIN 500 MG in IV D5W 100ml IV SCH (17:00)
--- NOTE | 2019-08-17 17:00 | NUR ---
SENIOR MARKETING ENGINEER NOTE PATIENT RESTLESS,NOT COMFORTABLE.POSITION CHANGED.COMFORT NEEDS MET.STILL RESTLESS AND FACIAL GRIMACING.SPOKE TO FAMILY.PATIENT WAS SUNNI PAIN MEDICATION @HOME FOR CHRONIC BACK PAIN. MADE AWARE.NNO.KEEP PROPOFOL ORDERED.F/U WITH MADE AWARE ABOUT PATIENT CONDITION.GOT NEW ORDER FOR MORPHINE 2MG IV Q4H PRN FOR SEVERE PAIN.WILL CONTINUE TO MONITOR.
[2019-08-17] MEDS: MORPHINE SULFATE INJ 2 MG/ML DISP.SYRIN IV PRN (17:15)
[2019-08-17] MEDS: ATORVASTATIN 40 MG TABLET PO SCH (17:15)
[2019-08-17] MEDS: JEVITY 1.2 CAL 1,000 ML BOTTLE GT PRN (17:41)
--- NOTE | 2019-08-17 19:10 | NUR ---
UNDERGROUND DRILL OPERATOR CLOSING NOTE PATIENT IN BED.INTUBATED WITH ETT 7.5/21.5@LIP LEVEL.TOLERATING VENT SETTINGS WELL.NO SOB NO DISTRESS NOTED.SEDATED WITH PROPOFOL .IV LINES ARE INTACT AND PATENT.FRANKS CATH DRAINING CLEAR YELLOW URINE.ON TELE MONITOR SR HR 60'S.BED IS LOW AND IN LOCKED POSITION.CALL LIGHT IN REACH BEAD ALARM ON .SRX3.ON BILATERAL SOFT RESTRAINTS.VISUAL CHECK DONE.ALL ASPIRATION AND SAFETY MEASURES IN PLACE.ON OGT FEEDING .ADVANCE TOLERATED.ENDORSED TO PM NURSE FOR RAMANA.
--- NOTE | 2019-08-17 19:32 | NUR ---
PARK WORKER. INITIAL ASSESSMENT. RECEIVED THE PT REST ON THE BED. ORALLY INTUBATED. SEDATED WITH DIPRIVAN. ETT 7.5,LIP 21.5,AC 12,TV 766YFR4 40%SAT 99%. NO ACUTE DISTRESS NOTED. MANDARIN TEACHER SHOWING NSR. IV RT UPPER ARM PICC LINE DIPRIVAN 45MCG/KG/MIN,LEVOPHED 8MCG/MIN HOB ELEVATED. OGT FEEDING J VITY 25ML/H. GOAL IS 55. FC PATENT. URINE DRAINING. WILL CONTINUE TO MONITOR VITALS.
--- NOTE | 2019-08-17 20:00 | NUR ---
RT RECEIVED PT ORALLY INTUBATED W/ 7.5 ETT @ 21CM LIP, WITH NOTED SETTINGS. HELICOPTER PILOT DONE AND TUBE IS SECURE. VENT ALARMS CHECKED AND AUDIBLE. VENT PLUGGED IN RED OUTLET. AMBU BAG NOTED HOB. B/S STACEY WITH EQUAL CHEST RISE. SX W/ SM THK BLACK SECRETIONS. NO SOB OR RESP DISTRESS NOTED, WILL CONTINUE TO MONITOR T/O SHIFT.
[2019-08-17] MEDS: CEFEPIME 1 GM in IV D5W 50 ML IV SCH (21:21)
[2019-08-17] MEDS: DOXYCYCLINE HYCLATE (100 MG) 100 MG TABLET PO SCH (22:33)
[2019-08-18] VITALS (90 sets, daily range): BP systolic 82–151; BP diastolic 50–103
[2019-08-18] MEDS: PROPOFOL 100 ML IV PRN ×4 (00:43→17:48)
[2019-08-18] MEDS: ALBUTEROL FS 2.5 MG/0.5 ML VIAL.NEB NEB SCH ×5 (03:23→20:05)
[2019-08-18] MEDS: IPRATROPIUM NEB FS 0.5 MG/2.5 ML AMPUL.NEB NEB SCH ×5 (03:23→20:06)
--- NOTE | 2019-08-18 04:34 | NUR ---
DIRECTOR OF MARKETING [employer] PERFORMANCE ADS. AM CARE, ORAL CARE, BED BATH GIVEN. INEN CHANGED. REMAINING SAME VENT SETTING TOLEARTED WELL. SAT 98%. NO ACUTE DISTRESS NOTED. SYRUP MIXER HELPER SHOWING NSR. IV RT UPPER ARM PICC LINE IVDIPRIVAN 45MCG/KG/MIN,LEVOPHED 6MCG/MIN, OGT FEEDING TOLERATED WELL. HOB ELEVATED. FC PATENT. URINE DRAINING. STACEY SOFT WRIST RESTRAINT CHECKED AND RELEASED . NO INJURY OR REDNESS NOTED. . WILL CONTINUE TO MONITOR VITALS.
[2019-08-18 05:10] LABS: BASOPHILS % (AUTO) 0.3 % (0.0-2.0); HEMATOCRIT 33 % (33-45); HEMOGLOBIN 11.5 g/dL (11.5-14.8); LYMPHOCYTES # (AUTO) 1.5 /CMM (0.8-4.8); LYMPHOCYTES % (AUTO) 14.1 % (20.0-44.0); MEAN CORPUSCULAR HGB CONC 35 g/dl (31.0-36.0); MEAN CORPUSCULAR VOLUME 97 fL (82-100); MONOCYTES # (AUTO) 0.5 /CMM (0.1-1.30); MONOCYTES % (AUTO) 4.7 % (2.0-12.0); NEUTROPHILS # (AUTO) 8.7 /CMM (1.8-8.9); NEUTROPHILS % (AUTO) 79.9 % (43.0-81.0); PLATELET COUNT (AUTO) 227 /CMM (150-450); RED BLOOD CELL COUNT(AUTO) 3.38 MIL/uL (4.0-5.2); WHITE BLOOD COUNT (AUTO) 10.9 K/uL (4.3-11.0)
[2019-08-18 05:23] LABS: ALBUMIN 2.4 g/dL (3.4-5.0); BILIRUBIN,TOTAL 0.6 mg/dL (0.2-1.0); CALCIUM, SERUM 7.8 mg/dL (8.5-10.1); CREATININE 1.1 mg/dL (0.6-1.3); PHOSPHORUS 2.9 mg/dL (2.5-4.9); TOTAL PROTEIN, SERUM 5.7 g/dL (6.4-8.2)
[2019-08-18 05:25] LABS: POTASSIUM 2.4 mmol/L (3.5-5.1)
[2019-08-18 05:35] LABS: THYROID STIMULATING HORMONE 1.166 uIU/mL (0.358-3.74)
[2019-08-18] MEDS: Magnesium 1GM/D5W 100ML PREMIX 100 ML IV SCH ×4 (06:36→10:15)
[2019-08-18] MEDS: POTASSIUM CHLORIDE 20 MEQ POWDER PACKET NG SCH ×5 (06:36→10:46)
[2019-08-18] MEDS: HYDROCORTISONE SOD SUCCINATE 100 MG/2 ML VIAL IV SCH ×3 (06:42→16:25)
[2019-08-18] MEDS ORDERED: POTASSIUM CL. PREMIX PERIPHER. 50 ML IV SCH (07:00)
--- NOTE | 2019-08-18 07:02 | NUR ---
CIRCULATING PROCESS INSPECTOR. RADIOLOGIST CALLED FOR PICC LINE ADJUSTMENT. 2CM PULLED OUT . PER MD VEE CALLED PICC LINE RN AND FIX IT
--- NOTE | 2019-08-18 07:15 | NUR ---
RN INITIAL NOTES RECEIVED PT INTUBAED, ON VENT. NO RESPIRATORY DISTRESS NOTED. NO SOB NOTED. HOB ELEVATED. OG IN PLACE. TOLERATING GTF WELL. NO RESIDUAL NOTED. LISSET PICC IN PLACE. ON DIPRIVAN AT 45MCG/KG/MIN AND LEVO AT 2MCG/MIN. WILL TITRATE ACCORDINGLY. FC IN PLACE. BLE ELEVATED. WILL MONITOR
--- NOTE | 2019-08-18 07:30 | NUR ---
NOTIFIED TUFTING SUPERVISOR FOR ADJUST THE PICC LINE. HE IS GOING TO CALL PICC LINE NURSE.
--- NOTE | 2019-08-18 07:31 | NUR ---
POWER SWITCHBOARD OPERATOR. CVP CONNECTED TO PICC LINE
[2019-08-18] MEDS: OSELTAMIVIR PHOSPHATE 75 MG CAPSULE GT SCH ×2 (08:47→21:12)
[2019-08-18] MEDS: CEFEPIME 1 GM in IV D5W 50 ML IV SCH ×2 (08:47→16:25)
[2019-08-18] MEDS: DOXYCYCLINE HYCLATE (100 MG) 100 MG TABLET PO SCH ×2 (08:47→21:12)
[2019-08-18] MEDS: ASPIRIN EC 81 MG TABLET.DR PO SCH (08:47)
[2019-08-18] MEDS: CLOPIDOGREL BISULFATE 75 MG TABLET PO SCH (08:47)
[2019-08-18 08:54] LABS: ABG BASE EXCESS 0.1 mmol/L; ABG OXYGEN SATURATION 97.3 % (92.0-98.5); ABG PCO2 35.9 mmHg (35.0-45.0); ABG PH 7.441 (7.350-7.450); ABG PO2 102.2 mmHg (75.0-100.0); AaDO2 141.7 mmHg; COHb 0.3 % (0.5-1.5); MetHb 0.4 % (0.0-1.5); O2Hb 96.6 % (94.0-97.0); PEEP,BG 0 cm H2O; SITE, ABG Right Radial; VT, ABG 500 mL
[2019-08-18] MEDS: OLOPATADINE HCL 0.1% OPHTH BOTTLE EACHEYE SCH ×2 (09:02→16:26)
--- NOTE | 2019-08-18 14:00 | NUR ---
RN NOTES LISSET PICC ADJUSTED BY INES (PICC NURSE) ORDERED. PULLED 4CM OUT. PLACEMENT VERIFIED BY CXR.
--- NOTE | 2019-08-18 14:00 | NUR ---
RN NOTES 0900 SEEN AND EXAMINED BY DR SIMS. AWARE OF LAB VALUES AND IMAGING STUDIES. MAGNESIUM AND POTASSIUM HAS REPLACEMENT ORDER. FOR ECHO. WILL MONITOR 1400 SEEN AND EXAMINED BY DR MORRISON. AWAE OF LAB VALUES AND ABG RESULT. CONTINUE TO MONITOR
[2019-08-18] MEDS: JEVITY 1.2 CAL 1,000 ML BOTTLE GT PRN (14:48)
[2019-08-18] MEDS: ATORVASTATIN 40 MG TABLET PO SCH (17:35)
[2019-08-18] MEDS: MORPHINE SULFATE INJ 2 MG/ML DISP.SYRIN IV PRN (18:16)
--- NOTE | 2019-08-18 18:31 | NUR ---
RN CLOSING NOTES NO SIGNIFICANT CHANGE NOTED. PT REMAINS INTUBATED. ON VENT. NO RESPIRATORY DISTRESS NOTED. NO SOB NOTED. TOLERATING GTF WELL. ON DIPRIVAN, TITRATED ACCORDINGLY. FC IN PLACE. KEPT CLEAN AND DY. REPOSITIONED Q2. BLE ELEVATED. KEPT COMFORTABLE. WILL ENDORSE FOR CONTINUITY OF CARE
--- NOTE | 2019-08-18 20:00 | NUR ---
INSTRUCTOR WASTEWATER TREATMENT PLANT - NOTES - PT REMAINS INTUBATED. ON VENT. NO RESPIRATORY DISTRESS NOTED. NO SOB NOTED. TOLERATING GTF WELL. ON DIPRIVAN, TITRATED ACCORDINGLY. FC IN PLACE. KEPT CLEAN AND DY. REPOSITIONED Q2. BLE ELEVATED. KEPT COMFORTABLE. WILL ENDORSE FOR CONTINUITY OF CARE
[2019-08-18] MEDS: ENOXAPARIN SODIUM 40 MG/0.4 ML DISP.SYRIN SQ SCH (21:13)
[2019-08-19] VITALS (52 sets, daily range): BP systolic 85–174; BP diastolic 54–92
[2019-08-19] MEDS: ALBUTEROL FS 2.5 MG/0.5 ML VIAL.NEB NEB SCH ×7 (00:04→23:27)
[2019-08-19] MEDS: IPRATROPIUM NEB FS 0.5 MG/2.5 ML AMPUL.NEB NEB SCH ×7 (00:04→23:27)
[2019-08-19] MEDS: PROPOFOL 100 ML IV PRN ×4 (00:30→22:25)
[2019-08-19 05:12] LABS: BASOPHILS % (AUTO) 0.1 % (0.0-2.0); HEMATOCRIT 33 % (33-45); HEMOGLOBIN 11.1 g/dL (11.5-14.8); LYMPHOCYTES # (AUTO) 1.4 /CMM (0.8-4.8); LYMPHOCYTES % (AUTO) 15.2 % (20.0-44.0); MEAN CORPUSCULAR HGB CONC 34 g/dl (31.0-36.0); MEAN CORPUSCULAR VOLUME 98 fL (82-100); MONOCYTES # (AUTO) 0.4 /CMM (0.1-1.30); MONOCYTES % (AUTO) 4.8 % (2.0-12.0); NEUTROPHILS # (AUTO) 7.3 /CMM (1.8-8.9); NEUTROPHILS % (AUTO) 79.9 % (43.0-81.0); PLATELET COUNT (AUTO) 117 /CMM (150-450); RED BLOOD CELL COUNT(AUTO) 3.32 MIL/uL (4.0-5.2); WHITE BLOOD COUNT (AUTO) 9.1 K/uL (4.3-11.0)
[2019-08-19 05:23] LABS: CREATININE 0.9 mg/dL (0.6-1.3); POTASSIUM 3.3 mmol/L (3.5-5.1)
--- NOTE | 2019-08-19 07:30 | NUR ---
SOCIOCULTURAL ANTHROPOLOGY PROFESSOR OPENING NOTE RECEIVED REPORT FROM PM NURSE .PATIENT IN BED.INTUBATED WITH ETT 7.5/21.5@LIP LEVEL.TOLERATING VENT SETTINGS WELL.NO SOB NO DISTRESS NOTED.SEDATED WITH PROPOFOL .IV LINES ARE INTACT AND PATENT.FRANKS CATH DRAINING CLEAR YELLOW URINE.ON TELE MONITOR SR HR 70'S.BED IS LOW AND IN LOCKED POSITION.CALL LIGHT IN REACH BEAD ALARM ON .SRX3.ON BILATERAL SOFT RESTRAINTS.VISUAL CHECK DONE.ALL ASPIRATION AND SAFETY MEASURES IN PLACE.ON OGT FEEDING .STARTED ON 25ML/HR BECAUSE OF INCREASED RESIDUAL FROM PREVIOUS SHIFT.WILL CONTINUE TO MONITOR.
[2019-08-19] MEDS: MORPHINE SULFATE INJ 2 MG/ML DISP.SYRIN IV PRN ×3 (07:35→20:02)
--- NOTE | 2019-08-19 08:15 | NUR ---
KITCHEN LEAD NOTE SEEN BY .UPDATED ABOUT PATIENT CONDITION WITH LABS.MADE AWARE THAT PATIENT HAD INCREASED RESIDUAL ON OGT FEEDING.WILL CONTINUE TO MONITOR.
[2019-08-19] MEDS: CLOPIDOGREL BISULFATE 75 MG TABLET PO SCH (08:19)
[2019-08-19] MEDS: ASPIRIN EC 81 MG TABLET.DR PO SCH (08:19)
[2019-08-19] MEDS: OSELTAMIVIR PHOSPHATE 75 MG CAPSULE GT SCH ×2 (08:19→20:03)
[2019-08-19] MEDS: DOXYCYCLINE HYCLATE (100 MG) 100 MG TABLET PO SCH ×2 (08:19→20:02)
[2019-08-19] MEDS: CEFEPIME 1 GM in IV D5W 50 ML IV SCH ×2 (08:19→20:02)
[2019-08-19] MEDS: OLOPATADINE HCL 0.1% OPHTH BOTTLE EACHEYE SCH ×2 (08:21→17:06)
[2019-08-19] MEDS ORDERED: POTASSIUM CHLORIDE 20 MEQ POWDER PACKET GT ONE (08:30)
[2019-08-19] MEDS ORDERED: POTASSIUM CHLORIDE 20 MEQ TAB.PRT.SR PO ONE (08:30)
[2019-08-19] MEDS: HYDROCORTISONE SOD SUCCINATE 100 MG/2 ML VIAL IV SCH ×2 (09:02→17:06)
--- NOTE | 2019-08-19 09:15 | NUR ---
POULTRY PICKING MACHINE TENDER NOTE SEEN BY .UPDATED ABOUT PATIENT CONDITION.MADE AWARE PATIENT ON SEDATION VACATION.PATIENT FOLLOWING COMMANDS.OPEN EYES.MILD AGITATION NOTED.WILL CONTINUE TO MONITOR.
--- NOTE | 2019-08-19 11:31 | NUR ---
BELLMAN DRIVER NOTE SPOKE TO MARTHA FROM INFECTIOUS DISEASE,MADE AWARE ABOUT PATIENT POSITIVE FOR INFLUENZA A.TO CONTINUE DROPLET PRECAUTIONS.CLOSE ROOM.WEAR REGULAR MASK WHILE ENTERING IN PATIENT'S ROOM.TO CHECK FOR MCNAMARA VIRUS IF DOCTOR SUSPECTS. MADE AWARE.NO NEED TO DO MCNAMARA VIRUS TEST.PATIENT HAS INFLUENZA.
--- NOTE | 2019-08-19 13:09 | NUR ---
PT RECEIVED ORALLY INTUBATED ON MECHANICAL VENT W/ SETTINGS PER MD. VENT IN RED OUTLET, VENT ALARMS CHECKED AND AUDIBLE, AMBUBAG AT BEDSIDE. PT SX'ED AND LAVAGED PRN. BS EQUAL AND DIMINISHED. ETT TUBE SECURED, PATENT, CLEAN AND DRY. ABG HELD PER DR. COTO. NO RESP DISTRESS NOTED. PLAN IS TO CONTINUE CARE UNDER CURRENT MD ORDERS AND MONITOR FOR CHANGES. Addendum: 08/19/19 at 1311 by ANGELA JACOBO RT Amended: Links added.
--- NOTE | 2019-08-19 15:37 | NUR ---
HEAVY MACHINERY ASSEMBLER NOTE MADE AWARE THAT PATIENT ON PLAVIX AND LOVENOX AND ASPIRIN EC.GOT NEW ORDER TO D/C LOVENOX.WILL CONTINUE TO MONITOR.
[2019-08-19] MEDS: ATORVASTATIN 40 MG TABLET PO SCH (17:06)
--- NOTE | 2019-08-19 19:11 | NUR ---
MUSICIAN INSTRUMENTAL CLOSING NOTE PATIENT IN BED.INTUBATED WITH ETT 7.12/11@LIP LEVEL.TOLERATING VENT SETTINGS WELL.NO SOB NO DISTRESS NOTED.SEDATED WITH PROPOFOL .IV LINES ARE INTACT AND PATENT.FRANKS CATH DRAINING CLEAR YELLOW URINE.ON TELE MONITOR SR HR 70'S.BED IS LOW AND IN LOCKED POSITION.CALL LIGHT IN REACH BEAD ALARM ON .SRX3.ON BILATERAL SOFT RESTRAINTS.VISUAL CHECK DONE.ALL ASPIRATION AND SAFETY MEASURES IN PLACE.ON OGT FEEDING .@25ML/HR TOLERATING WITH RESIDUAL OF 40-60ML.FAMILY VISITED.MARK GRAND DAUGHTER IS RESPONSIBLE REPUBLICAN.SEEN BY .SIMV TRIAL IN AM.ENDORSED TO PM NURSE FOR RAMANA
--- NOTE | 2019-08-19 20:00 | NUR ---
MOLDER SHOULDER PAD - NOTES - PT REMAINS INTUBATED. ON VENT. NO RESPIRATORY DISTRESS NOTED. NO SOB NOTED. TOLERATING GTF WELL. ON DIPRIVAN, TITRATED ACCORDINGLY. FC IN PLACE. KEPT CLEAN AND DY. REPOSITIONED Q2. BLE ELEVATED. KEPT COMFORTABLE. WILL ENDORSE FOR CONTINUITY OF CARE
--- NOTE | 2019-08-19 20:35 | NUR ---
RECEIVED PT INTUBATED 7.5 ETT SECURED AT 20CM AT THE LIP. NO SOB. PT TOLERATING VENT SETTINGS. SX'D FOR SML AMT OF THICK WHITE SECRETIONS. VENT ALARMS SET AND AUDIBLE. AMBU BAG AT BEDSIDE. ETT SECURE, CUFF HARDWARE ASSEMBLER. CONTINUE [facility] VENT SUPPORT. Addendum: 08/19/19 at 2036 by PAPO MARTINEZ RT Amended: Links added.
[2019-08-19] MEDS: hydrALAZINE HCL IV 20 MG VIAL IV PRN (23:26)
[2019-08-20] VITALS (48 sets, daily range): BP systolic 85–177; BP diastolic 34–97
--- NOTE | 2019-08-20 00:04 | NUR ---
PT HAS TUBE FEEDING RESIDUALS OF 200 ML, WILL HOLD TF
[2019-08-20] MEDS: MORPHINE SULFATE INJ 2 MG/ML DISP.SYRIN IV PRN ×3 (00:30→19:33)
[2019-08-20] MEDS: ALBUTEROL FS 2.5 MG/0.5 ML VIAL.NEB NEB SCH ×6 (03:47→23:15)
[2019-08-20] MEDS: IPRATROPIUM NEB FS 0.5 MG/2.5 ML AMPUL.NEB NEB SCH ×6 (03:47→23:15)
[2019-08-20] MEDS: PROPOFOL 100 ML IV PRN (04:56)
[2019-08-20 05:10] LABS: BASOPHILS % (AUTO) 0.2 % (0.0-2.0); HEMATOCRIT 32 % (33-45); HEMOGLOBIN 10.6 g/dL (11.5-14.8); LYMPHOCYTES # (AUTO) 1.1 /CMM (0.8-4.8); LYMPHOCYTES % (AUTO) 18.5 % (20.0-44.0); MEAN CORPUSCULAR HGB CONC 34 g/dl (31.0-36.0); MEAN CORPUSCULAR VOLUME 99 fL (82-100); MONOCYTES # (AUTO) 0.4 /CMM (0.1-1.30); MONOCYTES % (AUTO) 6.4 % (2.0-12.0); NEUTROPHILS # (AUTO) 4.6 /CMM (1.8-8.9); NEUTROPHILS % (AUTO) 74.9 % (43.0-81.0); PLATELET COUNT (AUTO) 133 /CMM (150-450); WHITE BLOOD COUNT (AUTO) 6.2 K/uL (4.3-11.0)
[2019-08-20 05:26] LABS: CALCIUM, SERUM 8.1 mg/dL (8.5-10.1); CREATININE 0.7 mg/dL (0.6-1.3); POTASSIUM 3.8 mmol/L (3.5-5.1)
--- NOTE | 2019-08-20 07:30 | NUR ---
RT PATIENT REC'D ORALLY INTUBATED ON [facility] VENT WITH ORDERED SETTINGS. VENT WEANING ORDERS FOR TODAY. ALARMS CHECKED + AUDIBLE. CONT CURRENT PLAN OF RESP CARE. Addendum: 08/20/19 at 1107 by VERÓNICA SILVA RT Amended: Links added.
--- NOTE | 2019-08-20 07:33 | NUR ---
BENZENE OPERATOR OPENING NOTE RECEIVED REPORT FROM PM NURSE .PATIENT IN BED.INTUBATED WITH ETT 7.12/11@LIP LEVEL.TOLERATING VENT SETTINGS WELL.NO SOB NO DISTRESS NOTED.SEDATED WITH PROPOFOL .IV LINES ARE INTACT AND PATENT.FRANKS CATH DRAINING CLEAR YELLOW URINE.ON TELE MONITOR SR HR 60'S.BED IS LOW AND IN LOCKED POSITION.CALL LIGHT IN REACH BEAD ALARM ON .SRX3.ON BILATERAL SOFT RESTRAINTS.VISUAL CHECK DONE.ALL ASPIRATION AND SAFETY MEASURES IN PLACE.ON OGT FEEDING .ON HOLD BECAUSE OF INCREASED RESIDUAL FROM PREVIOUS SHIFT 120ML.WILL CONTINUE TO MONITOR.
[2019-08-20] MEDS: HYDROCORTISONE SOD SUCCINATE 100 MG/2 ML VIAL IV SCH ×2 (08:06→16:59)
[2019-08-20] MEDS: CEFEPIME 1 GM in IV D5W 50 ML IV SCH ×2 (08:06→21:05)
[2019-08-20] MEDS: OSELTAMIVIR PHOSPHATE 75 MG CAPSULE GT SCH ×2 (08:07→21:05)
[2019-08-20] MEDS: OLOPATADINE HCL 0.1% OPHTH BOTTLE EACHEYE SCH ×2 (08:07→16:58)
[2019-08-20] MEDS: CLOPIDOGREL BISULFATE 75 MG TABLET PO SCH (08:07)
[2019-08-20] MEDS: DOXYCYCLINE HYCLATE (100 MG) 100 MG TABLET PO SCH ×2 (08:07→21:05)
[2019-08-20] MEDS: ASPIRIN EC 81 MG TABLET.DR PO SCH (08:07)
--- NOTE | 2019-08-20 08:30 | NUR ---
UNDER TRIMMER NOTE PATIENT OFF FROM PROPOFOL 0810AM.STARTED ON SIMV TRIAL.PATIENT ALERT.FOLLOWING COMMANDS.NO SOB NO DISTRESS NOTED.WILL CONTINUE TO MONITOR.
--- NOTE | 2019-08-20 09:01 | NUR ---
RT PATIENT PLACED ON VENT WEANING MODE PER MD ORDER Addendum: 08/20/19 at 1108 by VERÓNICA SILVA RT Amended: Links added.
[2019-08-20] MEDS ORDERED: DC PROPOFOL WHEN EXTUBATED XX PRN (10:00)
[2019-08-20 10:03] LABS: ABG BASE EXCESS 0.3 mmol/L; ABG OXYGEN SATURATION 98.4 % (92.0-98.5); ABG PCO2 33.7 mmHg (35.0-45.0); ABG PH 7.463 (7.350-7.450); ABG PO2 142.4 mmHg (75.0-100.0); COHb 0.3 % (0.5-1.5); MetHb 0.4 % (0.0-1.5); O2Hb 97.7 % (94.0-97.0); PEEP,BG 5 cm H2O; SITE, ABG Right Radial
--- NOTE | 2019-08-20 10:13 | NUR ---
CHIEF NURSING OFFICER NOTE ABG DONE.RESULT RELAYED TO .PATIENT ALERT NOT FOLLOWING COMMANDS NOT TRACKING RESTLESS. KEEP PATIENT ON SIMV.WILL RE EVAL IN THE AFTERNOON.
[2019-08-20] MEDS: ACETAMINOPHEN 325 MG TABLET PO PRN ×2 (10:17→17:51)
--- NOTE | 2019-08-20 14:17 | NUR ---
FIELD SALES SPECIALIST NOTE PATIENT IS ON WEANING TRIAL.TOLERATING SETTINGS WELL.OPEN EYES SPONTANEOUSLY.NOT FOLLOWING COMMANDS.NO SOB NO DISTRESS NOTED.FAMILY @BED SIDE.WILL CONTINUE TO MONITOR.
--- NOTE | 2019-08-20 14:38 | NUR ---
SPINE SUPERVISOR NOTE SEEN BY .PATIENT NOT FOLLOWING ANY COMMANDS.OPEN EYES SPONTANEOUSLY.NNO.CONTINUE SIMV.WILL REEVALUATE IN THE MORNING.NO PRN PAIN MEDS AND MEDS THAT CAUSE SEDATION.
--- NOTE | 2019-08-20 15:27 | NUR ---
SHELLS INSPECTOR NOTE CALL MADE TO LAB MADE AWARE THAT THERE IE REQUEST FROM LAB TO COLLECT SPUTUM CULTURE.BUT IN ORDER IT SHOWS THAT IN PROCESS.YESTERDAY PM CHARGE NURSE SPOKE TO LAB .THEY SAID THEY RECEIVED SPECIMEN BUT ITS IN PROCESS.SPOKE TO SYD SAID THEY DID NOT RECEIVE URINE AND SPUTUM CULTURE SPECIMEN.RT MADE AWARE.SPECIMEN COLLECTED.CALLED LAB SPOKE TO SYD .MADE AWARE THAT SPECIMENS COLLECTED AND IN THE FRIDGE.WILL CONTINUE TO MONITOR.
--- NOTE | 2019-08-20 16:20 | NUR ---
BLENDING PLANT OPERATOR NOTE SEEN BY .PATIENT ALERT.FOLLOWING COMMANDS.TRACKING.NOT IN DISTRESS.TOLERATING SIMV WELL.GOT NEW ORDER TO EXTUBATE THE PATIENT.RT MADE AWARE.PATIENT GOT EXTUBATED 1615.FAMILY WAS AT BEDSIDE.ANSWERED ALL QUESTIONS.PLACED ON 4L NC.SATURATING 99%.NO SOB NO DISTRESS NOTED.WILL CONTINUE TO MONITOR.
--- NOTE | 2019-08-20 16:23 | NUR ---
RT PER DR TAVARES ORDER PATIENT WAS EXTUBATED AND PLACED ON SUPPLEMENTAL O2 NGUYEN WELL.
--- NOTE | 2019-08-20 17:00 | NUR ---
TEACHER SELECTION SPECIALIST NOTE BED SIDE SWALLOW DONE.PTAIENT PASSED BEDSIDE SWALLOW.NO COUGH WHILE FEEDING.FOLLOWING COMMANDS.
[2019-08-20] MEDS: ATORVASTATIN 40 MG TABLET PO SCH (17:51)
[2019-08-20] MEDS: hydrALAZINE HCL IV 20 MG VIAL IV PRN (18:06)
--- NOTE | 2019-08-20 18:25 | NUR ---
LEGAL PRACTICE MANAGER NOOTE PATIENT C/O PAIN IN BLE AND BACK.ER.LEVI MADE AWARE.GOT NEW ORDER .WILL CONTINUE TO MONITOR.
[2019-08-20] MEDS ORDERED: METHYL SALICYLATE/MENTHOL 28GM 28 GM TUBE TP PRN (18:30)
[2019-08-20] MEDS: HYDROCODONE/APAP 5/325MG 1 EACH TABLET PO PRN (18:45)
--- NOTE | 2019-08-20 19:21 | NUR ---
LAYOUT WORKER NOTE PATIENT IN BED.S/P EXTUBATION.ON O2 4L VIA NASAL CANULA.NO SOB NO DISTRESS NOTED.IN PAIN .BLE AND BACK.PRN PAIN MEDICATION GIVEN.BP IS NORMAL .ON TELE MONITOR ST .HR 116.IV LINES ARE INTACT AND PATENT.BED IS LOW AND IN LOCKED POSITION.CALL LIGHT IN REACH.BED ALARM ON.SRX3.ENDORSED TO PM NURSE FOR RAMANA.
--- NOTE | 2019-08-20 19:52 | NUR ---
RN NOTES RECEIVED PATIENT AWAKE AOX 1-2, MOANED FOLLOWS SIMPLE COMMAND. NO ACUTE RESPIRATORY DISTRESS ON O2 4LPM VIA NC , S/P EXTUBATION TODAY AROUND 4PM. PREVIOUS NURSE GAVE NORCO INEFFECTIVE, PATIENT STILL GRIMACING IN PAIN POINTED OUT HER CHEST WHEN ASKED. A- FIB UNCONTROLLED ON TELE MONITOR. EKG ORDERED . IV SITE ON LISSET PICC LINE , LH , L SHOULDER AND RIGHT WRIST ALL INTACT AND PATENT. PRN PAIN MEDICINE ADMINISTERED ORDERED. PERICARE PROVIDED WITH BM X 1. KEPT PT CLEAN AND DRY. WITH FRANKS CATH OFF FROM FLOOR DRAINED VIA GRAVITY. CALL LIGHT KEPT WITHIN EASY REACH. WILL CLOSELY MONITOR.
--- NOTE | 2019-08-20 20:09 | NUR ---
BREATHING TX NOT GIVEN DO TO HR 130s
[2019-08-20] MEDS ORDERED: AMIODARONE 150 MG in IV D5W 100 ML IV ONE (20:30)
[2019-08-20] MEDS ORDERED: AMIODARONE 900 MG in IV D5W 482 ML IV PRN (20:30)
--- NOTE | 2019-08-20 20:37 | NUR ---
RN NOTES INFORMED DIE CAST SUPERVISOR MD DR FITZPATRICK THAT PATIENT CONVERTED TO A- FIB AND EKG RESULT WAS A-FIB W/RVR. PATIENT IS ASLEEP RIGHT NOW AFTER MORPHINE IVP WAS GIVEN. PEER MD TO START AMIODARONE DRLEONARD NOTED AND ACKNOWLEDGE ORDER.
--- NOTE | 2019-08-20 21:27 | NUR ---
RN NOTES 3759 AMIODARONE DRIP STARTED PROTOCOL. WILL CONTINUE TO MONITOR.
[2019-08-21] VITALS (29 sets, daily range): BP systolic 90–157; BP diastolic 55–91
--- NOTE | 2019-08-21 03:10 | NUR ---
RN NOTES AMIODARONE DRIP 1 MG CHANGED TO 0.5 MG VSS. STILL AFIB ON TELE MONITOR. PATIENT IS ASLEEP AT THIS TIME.
[2019-08-21] MEDS: IPRATROPIUM NEB FS 0.5 MG/2.5 ML AMPUL.NEB NEB SCH ×6 (03:40→23:43)
[2019-08-21] MEDS: ALBUTEROL FS 2.5 MG/0.5 ML VIAL.NEB NEB SCH ×6 (03:40→23:43)
[2019-08-21 04:14] LABS: BASOPHILS % (AUTO) 0.2 % (0.0-2.0); EOSINOPHILS % (AUTO) 0.1 % (0.0-6.0); HEMATOCRIT 37 % (33-45); HEMOGLOBIN 12.3 g/dL (11.5-14.8); LYMPHOCYTES # (AUTO) 1.4 /CMM (0.8-4.8); LYMPHOCYTES % (AUTO) 22.8 % (20.0-44.0); MEAN CORPUSCULAR HGB CONC 34 g/dl (31.0-36.0); MEAN CORPUSCULAR VOLUME 98 fL (82-100); MONOCYTES # (AUTO) 0.9 /CMM (0.1-1.30); MONOCYTES % (AUTO) 14.1 % (2.0-12.0); NEUTROPHILS % (AUTO) 62.8 % (43.0-81.0); PLATELET COUNT (AUTO) 185 /CMM (150-450); RED BLOOD CELL COUNT(AUTO) 3.73 MIL/uL (4.0-5.2); WHITE BLOOD COUNT (AUTO) 6.3 K/uL (4.3-11.0)
[2019-08-21 04:51] LABS: CALCIUM, SERUM 8.6 mg/dL (8.5-10.1); CARBON DIOXIDE 28 mmol/L (21-32); CHLORIDE 101 mmol/L (98-107); CREATININE 0.8 mg/dL (0.6-1.3); GLUCOSE 134 mg/dL (74-106); SODIUM SERUM 137 mmol/L (136-145); UREA NITROGEN, BLOOD 15 mg/dL (7-18)
[2019-08-21 04:52] LABS: POTASSIUM 2.8 mmol/L (3.5-5.1)
[2019-08-21] MEDS: MORPHINE SULFATE INJ 2 MG/ML DISP.SYRIN IV PRN ×2 (05:23→12:42)
--- NOTE | 2019-08-21 06:10 | NUR ---
RN NOTES PATIENT ASLEEP WELL ON BED AFTER MORPHINE IVP ADMINISTERED DUE TO COMPLAINING OF PAIN, GRIMACING, MOANING AND VS CHANGED HR 120'S. CONTINUE ON AMIODARONE DRIP RUNNING AT 0.5 MG/MIN. SEEN AND EXAMINED BY DR. VEE AT BEDSIDE. ALL IV SITE ARE INTACT AND PATENT. CVP CALIBRATED. FRANKS CATH DRAINED VIA GRAVITY, KEPT OFF FROM THE FLOOR,KEPT PT CLEAN AND DRY WILL ENDORSED CONTINUITY OF CARE TO AM NURSE.
--- NOTE | 2019-08-21 07:15 | NUR ---
ENVIRONMENTAL WEB CRAWLER OPENING NOTE RECEIVED BEDSIDE REPORT FROM RN .NO SOB NO DISTRESS SATURATING 98% ON 3 LTRS NASAL CANNULA .IV LINES ARE INTACT AND PATENT.FRANKS CATH DRAINING CLEAR YELLOW URINE AFIB WITH RVR ON MONITOR PT ON ELIQUIS . BED IN LOW LOCKED POSITION ASPIRATION AND SAFETY MEASURES IN PLACE.AWAITING SWALLOW EVALUATION.WILL CONTINUE TO MONITOR.
[2019-08-21] MEDS: CLOPIDOGREL BISULFATE 75 MG TABLET PO SCH (08:10)
[2019-08-21] MEDS: DOXYCYCLINE HYCLATE (100 MG) 100 MG TABLET PO SCH ×2 (08:10→21:39)
[2019-08-21] MEDS: POTASSIUM CHLORIDE 20 MEQ TAB.PRT.SR PO SCH ×5 (08:10→12:13)
[2019-08-21] MEDS: HYDROCORTISONE SOD SUCCINATE 100 MG/2 ML VIAL IV SCH ×2 (08:10→18:05)
[2019-08-21] MEDS: OSELTAMIVIR PHOSPHATE 75 MG CAPSULE GT SCH ×2 (08:10→21:39)
[2019-08-21] MEDS: ASPIRIN EC 81 MG TABLET.DR PO SCH (08:10)
[2019-08-21] MEDS: APIXABAN 5 MG TABLET PO SCH ×2 (08:11→18:07)
[2019-08-21] MEDS: OLOPATADINE HCL 0.1% OPHTH BOTTLE EACHEYE SCH ×2 (08:12→17:00)
[2019-08-21] MEDS: CEFEPIME 1 GM in IV D5W 50 ML IV SCH ×2 (09:03→21:47)
[2019-08-21] MEDS: HYDROCODONE/APAP 5/325MG 1 EACH TABLET PO PRN ×3 (09:09→22:21)
[2019-08-21 09:26] LABS: PHOSPHORUS 2.9 mg/dL (2.5-4.9)
[2019-08-21 09:34] LABS: MAGNESIUM 1.7 mg/dL (1.8-2.4)
--- NOTE | 2019-08-21 10:00 | NUR ---
SPEECH THERAPY AT BEDSIDE FOR SWALLOW EVALUATION PT PASSED AND PLACED ON PUREE CARDIAC DIET
--- NOTE | 2019-08-21 13:15 | NUR ---
BED BATH GIVEN LINES CHANGED PT REPOSITIONED FOR COMFORT ORAL CARE RENDERED
--- NOTE | 2019-08-21 17:00 | NUR ---
PT AMIODARONE COMPLETE NEW ORDERS FROM DR VEE TO DC AND START ON PO AMIODARONE 400 MG TID
[2019-08-21] MEDS: AMIODARONE HCL 200 MG TABLET PO SCH (18:06)
[2019-08-21] MEDS: ATORVASTATIN 40 MG TABLET PO SCH (18:07)
--- NOTE | 2019-08-21 19:13 | NUR ---
REPORT GIVEN TO NOC
--- NOTE | 2019-08-21 19:27 | NUR ---
Transferred patient via acls protocol to [facility] room 101. Patient tolerated transfer well. Bedside report given to Nena Shin for continuity of care.
--- NOTE | 2019-08-21 19:30 | NUR ---
ECTOR RN OPENING NOTES RECEIVED BEDSIDE REPORT FROM ANTOINE MACDONALD. PATIENT AWAKE, A/OX2, APPEARS LETHARGIC. DENIES ANY PAIN AT THE MOMENT. ON TELE MONITOR SR WITH HR 70'S. ON OXYGEN 4L VIA NC, TOLERATING WELL, NO SOB OR RESPIRATORY DISTRESS NOTED. LISSET PICC LINE FLUSHING AND INTACT, AND OTHER IV LINES INTACT AND PATENT. FRANKS CATH IN PLACE, DRAINING TEA COLORED URINE NOTED. SAFETY MEASURES IN PLACE; CALL LIGHT WITHIN REACH, BED IS LOW AND IN LOCKED POSITION, BED ALARM ON, SRX3, HOB ELEVATED. DROPLET PRECAUTIONS IN PLACE. ORIENTED PT TO ROOM. KEPT PT CLEAN, DRY, AND COMFORTABLE. WILL CONTINUE TO MONITOR PT CLOSELY.
--- NOTE | 2019-08-21 20:10 | NUR ---
ECTOR RN NOTES RECEIVED PATIENT UPPER AND LOWER DENTURES FROM FAMILY. UPDATED BELONGINGS LIST. KEPT DENTURES AT PT BEDSIDE.
[2019-08-22] VITALS: BP 152/79
[2019-08-22] MEDS: MORPHINE SULFATE INJ 2 MG/ML DISP.SYRIN IV PRN ×3 (02:53→17:26)
[2019-08-22] MEDS: ALBUTEROL FS 2.5 MG/0.5 ML VIAL.NEB NEB SCH ×6 (03:30→23:38)
[2019-08-22] MEDS: IPRATROPIUM NEB FS 0.5 MG/2.5 ML AMPUL.NEB NEB SCH ×6 (03:30→23:38)
[2019-08-22 04:00] VITALS: BP 130/68
[2019-08-22 06:31] LABS: BASOPHILS % (AUTO) 0.2 % (0.0-2.0); EOSINOPHILS % (AUTO) 0.2 % (0.0-6.0); HEMATOCRIT 35 % (33-45); HEMOGLOBIN 11.8 g/dL (11.5-14.8); LYMPHOCYTES # (AUTO) 1.6 /CMM (0.8-4.8); LYMPHOCYTES % (AUTO) 26.4 % (20.0-44.0); MEAN CORPUSCULAR HGB CONC 34 g/dl (31.0-36.0); MEAN CORPUSCULAR VOLUME 100 fL (82-100); MONOCYTES # (AUTO) 1.1 /CMM (0.1-1.30); NEUTROPHILS # (AUTO) 3.3 /CMM (1.8-8.9); NEUTROPHILS % (AUTO) 55.2 % (43.0-81.0); PLATELET COUNT (AUTO) 217 /CMM (150-450)
[2019-08-22 07:03] LABS: CALCIUM, SERUM 8.6 mg/dL (8.5-10.1); CREATININE 0.9 mg/dL (0.6-1.3)
--- NOTE | 2019-08-22 07:23 | NUR ---
ECTOR RN CLOSING NOTES PATIENT SLEEPING IN BED, BUT EASY TO AROUSE, A/OX2. ON TELE MONITOR SR WITH HR 70'S. ON OXYGEN 3L VIA NC, TOLERATING WELL, NO SOB OR RESPIRATORY DISTRESS NOTED. LISSET PICC LINE AND LEFT AC 22G BOTH FLUSHING AND PATENT, ON TKO 3ML/HR. FRANKS CATH IN PLACE, DRAINING TEA COLORED URINE NOTED. ALL MD ORDERS ATTENDED. REPOSITIONED Q2H. SAFETY MEASURES IN PLACE; CALL LIGHT WITHIN REACH, BED IS LOW AND IN LOCKED POSITION, BED ALARM ON, SRX3, HOB ELEVATED. DROPLET PRECAUTIONS IN PLACE. KEPT PT CLEAN, DRY, AND COMFORTABLE. WILL CONTINUE TO MONITOR PT CLOSELY. WILL ENDORSE TO AM NURSE FOR RAMANA.
[2019-08-22 08:00] VITALS: BP 129/70
[2019-08-22] MEDS: DOXYCYCLINE HYCLATE (100 MG) 100 MG TABLET PO SCH ×2 (09:02→21:42)
[2019-08-22] MEDS: HYDROCODONE/APAP 5/325MG 1 EACH TABLET PO PRN ×2 (09:03→21:43)
[2019-08-22] MEDS: OSELTAMIVIR PHOSPHATE 75 MG CAPSULE GT SCH ×2 (09:04→21:42)
[2019-08-22] MEDS: ASPIRIN EC 81 MG TABLET.DR PO SCH (09:05)
[2019-08-22] MEDS: HYDROCORTISONE SOD SUCCINATE 100 MG/2 ML VIAL IV SCH ×2 (09:05→17:00)
[2019-08-22] MEDS: AMIODARONE HCL 200 MG TABLET PO SCH ×3 (09:06→17:01)
[2019-08-22] MEDS: CLOPIDOGREL BISULFATE 75 MG TABLET PO SCH (09:08)
[2019-08-22] MEDS: APIXABAN 5 MG TABLET PO SCH ×2 (09:11→17:02)
[2019-08-22] MEDS: OLOPATADINE HCL 0.1% OPHTH BOTTLE EACHEYE SCH ×2 (09:12→17:21)
[2019-08-22] MEDS: CEFEPIME 1 GM in IV D5W 50 ML IV SCH ×2 (09:12→21:43)
[2019-08-22 12:00] VITALS: BP 155/92
[2019-08-22 16:00] VITALS: BP 108/68
[2019-08-22] MEDS: ATORVASTATIN 40 MG TABLET PO SCH (17:21)
--- NOTE | 2019-08-22 18:47 | NUR ---
RN NOTE LEFT MESSAGE THOUGH EPIC PERSONNEL NAMED AIDE FOR DR SIMS THAT URINE OUTPUT LOW. NO CALL BACK YET FROM .
--- NOTE | 2019-08-22 19:00 | NUR ---
RN NOTE SPOKE WITH DR SIMS, ABOUT URINE OUTPUT 115 ML, HE SAID TO ENCOURAGE PT OF FLUID INTAKE. AND MONITOR. WILL ENDORSE TO POLE PEELER.
--- NOTE | 2019-08-22 19:35 | NUR ---
RN OPENING NOTES RECEIVED PATIENT AWAKE, A/OX2. FAMILY AT BEDSIDE. DENIES ANY PAIN AT THE MOMENT. ON TELE MONITOR SR WITH HR 70'S. ON OXYGEN 3L VIA NC, TOLERATING WELL, NO SOB OR RESPIRATORY DISTRESS NOTED. LISSET PICC LINE FLUSHING AND PATENT, SITE C/D/I. FRANKS CATH IN PLACE, DRAINING TEA COLORED URINE NOTED. SAFETY MEASURES IN PLACE; CALL LIGHT WITHIN REACH, BED IS LOW AND IN LOCKED POSITION, BED ALARM ON, SRX3, HOB ELEVATED. DROPLET PRECAUTIONS IN PLACE. KEPT PT CLEAN, DRY, AND COMFORTABLE. WILL CONTINUE TO MONITOR PT CLOSELY.
[2019-08-22 20:00] VITALS: BP 131/75
[2019-08-23] VITALS: BP 127/88
[2019-08-23] MEDS: ALBUTEROL FS 2.5 MG/0.5 ML VIAL.NEB NEB SCH ×6 (03:08→23:34)
[2019-08-23] MEDS: IPRATROPIUM NEB FS 0.5 MG/2.5 ML AMPUL.NEB NEB SCH ×6 (03:08→23:34)
[2019-08-23 04:00] VITALS: BP 138/91
[2019-08-23] MEDS: HYDROCODONE/APAP 5/325MG 1 EACH TABLET PO PRN ×3 (05:08→20:34)
[2019-08-23 06:17] LABS: BASOPHILS % (AUTO) 0.1 % (0.0-2.0); EOSINOPHILS % (AUTO) 0.6 % (0.0-6.0); HEMATOCRIT 33 % (33-45); LYMPHOCYTES # (AUTO) 1.7 /CMM (0.8-4.8); LYMPHOCYTES % (AUTO) 24.1 % (20.0-44.0); MEAN CORPUSCULAR HGB CONC 33 g/dl (31.0-36.0); MEAN CORPUSCULAR VOLUME 100 fL (82-100); MONOCYTES # (AUTO) 1.1 /CMM (0.1-1.30); NEUTROPHILS # (AUTO) 4.2 /CMM (1.8-8.9); NEUTROPHILS % (AUTO) 59.2 % (43.0-81.0); PLATELET COUNT (AUTO) 252 /CMM (150-450); RED BLOOD CELL COUNT(AUTO) 3.28 MIL/uL (4.0-5.2); WHITE BLOOD COUNT (AUTO) 7.1 K/uL (4.3-11.0)
[2019-08-23 06:51] LABS: CALCIUM, SERUM 8.8 mg/dL (8.5-10.1); POTASSIUM 3.8 mmol/L (3.5-5.1)
--- NOTE | 2019-08-23 07:21 | NUR ---
RN CLOSING NOTES GAVE BEDSIDE REPORT TO AM RN FOR RAMANA. RECEIVED PATIENT SLEEPING IN BED, BUT EASY TO AROUSE, A/OX2. DENIES ANY PAIN AT THE MOMENT. ON TELE MONITOR SR WITH HR 80'S. ON ROOM AIR, TOLERATING WELL, NO SOB OR RESPIRATORY DISTRESS NOTED. LISSET PICC LINE FLUSHING AND PATENT, SITE C/D/I. FRANKS CATH IN PLACE, DRAINING TEA COLORED URINE NOTED. SAFETY MEASURES AND DROPLET PRECAUTIONS MAINTAINED. KEPT PT CLEAN, DRY, AND COMFORTABLE. REPOSITIONED Q2H.
--- NOTE | 2019-08-23 07:32 | NUR ---
RN OPENING NOTES RECEIVED PATIENT AWAKE IN BED, A/O X2, NO ACUTE DISTRESS NOTED. PATIENT IS ON TELE MONITOR, SINUS RHYTHM IS OBSERVED. PATIENT IS ON ROOM AIR, TOLERATING WELL, SATURATING WELL, NO SOB OR RESPIRATORY DISTRESS IS NOTED. PICC LINE ON RIGHT UPPER ARM IS INTACT, PATENT, AND FLUSHED WELL. NO SIGNS AND SYMPTOMS OF INFECTION NOTED. PATIENT HAS A FRANKS IN PLACE, DRAINING URINE. SAFETY MAINTAINED, CALL LIGHT WITHIN REACH, WILL CONTINUE TO MONITOR.
[2019-08-23 08:00] VITALS: BP 129/73
[2019-08-23] MEDS: HYDROCORTISONE SOD SUCCINATE 100 MG/2 ML VIAL IV SCH ×2 (08:23→17:16)
[2019-08-23] MEDS: AMIODARONE HCL 200 MG TABLET PO SCH ×3 (08:24→17:18)
[2019-08-23] MEDS: OSELTAMIVIR PHOSPHATE 75 MG CAPSULE GT SCH ×2 (08:24→20:33)
[2019-08-23] MEDS: ASPIRIN EC 81 MG TABLET.DR PO SCH (08:24)
[2019-08-23] MEDS: DOXYCYCLINE HYCLATE (100 MG) 100 MG TABLET PO SCH ×2 (08:24→20:33)
[2019-08-23] MEDS: APIXABAN 5 MG TABLET PO SCH ×2 (08:25→17:13)
[2019-08-23] MEDS: CEFEPIME 1 GM in IV D5W 50 ML IV SCH ×2 (08:25→20:34)
[2019-08-23] MEDS: CLOPIDOGREL BISULFATE 75 MG TABLET PO SCH (08:25)
[2019-08-23] MEDS: OLOPATADINE HCL 0.1% OPHTH BOTTLE EACHEYE SCH ×2 (08:26→17:28)
[2019-08-23] MEDS ORDERED: DOXY100T2 PO (11:17)
[2019-08-23] MEDS ORDERED: METH4TAB3 PO (11:17)
[2019-08-23] MEDS ORDERED: ALBU2.5V13 NEB (11:17)
[2019-08-23] MEDS ORDERED: CEFE1PIG3 IV (11:17)
[2019-08-23] MEDS ORDERED: IPRA0.2S9 NEB (11:17)
[2019-08-23 11:25] LABS: BAND % (MANUAL) 1 % (0.0-5.0); LYMPHOCYTES % (MANUAL) 21 % (16-48); MONOCYTES % (MANUAL) 20 % (0-11.0); NEUTROPHILS % (MANUAL) 58 (42-76)
[2019-08-23] MEDS: MORPHINE SULFATE INJ 2 MG/ML DISP.SYRIN IV PRN ×2 (15:06→22:48)
[2019-08-23 16:00] VITALS: BP 171/103
[2019-08-23] MEDS: ATORVASTATIN 40 MG TABLET PO SCH (17:14)
--- NOTE | 2019-08-23 18:30 | NUR ---
RN NOTE SNF DID NOT ACCEPT THE PATIENT DUE TO THE PATIENT NOT HAVING A BOWEL MOVEMENT FOR THE 5TH DAY. SPOKE TO THE DR IN CHARGE, ORDERED A SUPPOSITORY AND FLEET ENEMA. WILL ADMINISTER ORDERED AND POSSIBLY DISCHARGE THE FOLLOWING DAY IF THE PATIENT HAS A BOWEL MOVEMENT.
[2019-08-23] MEDS ORDERED: BISACODYL SUPP (10 MG) 10 MG/SUPP.RECT SUPP.RECT RC ONE (19:00)
[2019-08-23] MEDS ORDERED: NA PHOS,M-B/NA PHOS,DI-BA 1 EA ENEMA RC PRN (19:30)
[2019-08-23 20:00] VITALS: BP 115/73
[2019-08-24] MEDS: IPRATROPIUM NEB FS 0.5 MG/2.5 ML AMPUL.NEB NEB SCH ×3 (03:36→11:34)
[2019-08-24] MEDS: ALBUTEROL FS 2.5 MG/0.5 ML VIAL.NEB NEB SCH ×3 (03:36→11:34)
[2019-08-24] MEDS: MORPHINE SULFATE INJ 2 MG/ML DISP.SYRIN IV PRN (03:57)
[2019-08-24 04:00] VITALS: BP 110/66
--- NOTE | 2019-08-24 07:23 | NUR ---
RN CLOSING NOTES ENDORSED PATIENT TO AM NURSE TO CONTINUE CARE. PATIENT REMAINED IN STABLE CONDITION THROUGHOUT MY SHIFT. ALL PATIENT NEEDS MET. PAIN WAS MANGED WITH ORDERED MEDS. TOLERATED WELL. PATIENT STILL DID NOT MAKE A BOWEL MOVEMENT. ADMINISTERED FLEET ENEMA AT AROUND 530AM WHICH WAS INEFFECTIVE. ENDORSED TO PROPERTY CARETAKER NURSE TO SPEAK TO THE DR REGARDING NO BM FOR THE PATIENT EVEN AFTER ENEMA. PATIENT REMAINED ON ROOM AIR AND SATURATING WELL AT 95%. LISSET PICC LINE REMAINED INTATC, PATENT, AND FLUSHED WELL. NO S/S OF INFECTION IS NOTED. FRANKS CATHETER IN PLACE DRAINING TEA COLORED URINE. DROPLET ISOLATION WAS OBSERVED. SAFETY MAINTAINED, CALL LIGHT WITHIN REACH. ENDORSED TO AM SHIFT NURSE TO CONTINUE CARE.
--- NOTE | 2019-08-24 07:25 | NUR ---
MS RN OPENING NOTES RECEIVED PT IN BED, AWAKE, A/O X3, WELSH SPEAKING BUT CAN UNDERSTAND TELUGU. PT ON SUPPLEMENTARY 2LPM OXYGEN VIA NC, WITH NO ACUTE RESPIRATORY DISTRESS NOTED. PT DENIES ANY PAIN OR DISCOMFORT. PT ALSO DENIES CONCERNS OR QUESTIONS AT THIS TIME. LISSET PICC, FLUSHED WITH NS, INTACT AND OPERATIONAL. FC IN PLACE, WITH YELLOW URINE IN THE BAG. PT KEPT COMFORTABLE IN BED. CALL LIGHT KEPT WITHIN REACH. PT'S BED IN LOWEST, LOCKED POSITION WITH SRX3. WILL CONTINUE PLAN OF CARE.
[2019-08-24 08:00] VITALS: BP 96/60
[2019-08-24] MEDS: HYDROCODONE/APAP 5/325MG 1 EACH TABLET PO PRN ×2 (08:27→14:34)
[2019-08-24] MEDS: ASPIRIN EC 81 MG TABLET.DR PO SCH (08:27)
[2019-08-24] MEDS: CLOPIDOGREL BISULFATE 75 MG TABLET PO SCH (08:27)
[2019-08-24] MEDS: HYDROCORTISONE SOD SUCCINATE 100 MG/2 ML VIAL IV SCH (08:27)
[2019-08-24] MEDS: DOXYCYCLINE HYCLATE (100 MG) 100 MG TABLET PO SCH (08:27)
[2019-08-24] MEDS: CEFEPIME 1 GM in IV D5W 50 ML IV SCH (08:27)
[2019-08-24] MEDS: OSELTAMIVIR PHOSPHATE 75 MG CAPSULE GT SCH (08:28)
[2019-08-24] MEDS: APIXABAN 5 MG TABLET PO SCH (08:28)
[2019-08-24 08:46] VITALS: BP 96/60
[2019-08-24] MEDS: AMIODARONE HCL 200 MG TABLET PO SCH (08:46)
[2019-08-24] MEDS: OLOPATADINE HCL 0.1% OPHTH BOTTLE EACHEYE SCH (08:46)
--- NOTE | 2019-08-24 14:55 | NUR ---
MS TOUR ACTOR NOTES PT IN BED, AWAKE, A/O X3, TAJIK SPEAKING BUT CAN UNDERSTAND PASHTO. PT TO BE DISCHARGE TO [facility], REPORT GIVEN TO TAHIRA/RN. PT TOLERATING RA, WITH NO ACUTE RESPIRATORY DISTRESS NOTED. PT DENIES ANY PAIN OR DISCOMFORT AT THE TIME OF DISCHARGE. LISSET PICC, FLUSHED WITH NS, INTACT AND OPERATIONAL, WILL BE GOING WITH IT FOR CONTINUATION OF ANTIBIOTIC IV. FC REMOVED AT 1300. SKIN ISSUE PICTURE TAKEN WITHIN 24HOURS BEFORE DISCHARGE, NO NEW SKIN ISSUES NOTED AND REPORTED. ZI/MARK REVIEWED AND SIGNED DISCHARGE INSTRUCTION AND INVENTORY LIST. ALL BELONGINGS WITH MARK. ALL NEEDS AND CARE ATTENDED. PT AND FAMILY HAPPY WITH THE CARE PROVIDED. PT LEFT THE UNIT AT 1450 WITH STABLE VITALS. PT TO BE TRANSPORTED VIA AMBULANCE. HOSPITALIST/DT AND CN/SOON AWARE OF DISCHARGE.
== END 2019-08-24 14:48 | DRG 871 ==
LOC: ER 22:33 → ICU 08-17 00:39 → TELE1 08-21 19:28 → TELE-TD 08-21 20:01 → TELE1 08-23 04:19 → MEDSG1 08-23 08:27
PROVIDERS: ADMIT Nurse Practitioner Acute Care; ATTEND Nurse Practitioner Acute Care
PROC: 5A1945Z Respiratory Ventilation, 24-96 Consecutive Hours (ICD-10-PCS; principal; 2019-08-17)
PROC: 0BH17EZ Insertion of Endotracheal Airway into Trachea, Via Natural or Artificial Opening (ICD-10-PCS; 2019-08-17)
PROC: 02HV33Z Insertion of Infusion Device into Superior Vena Cava, Percutaneous Approach (ICD-10-PCS; 2019-08-18)
PROC: B548ZZA Ultrasonography of Superior Vena Cava, Guidance (ICD-10-PCS; 2019-08-18)
DX: A41.9 Sepsis, unspecified organism (principal); J15.6 Pneumonia due to other Gram-negative bacteria; I50.33 Acute on chronic diastolic (congestive) heart failure; J96.01 Acute respiratory failure with hypoxia; I21.4 Non-ST elevation (NSTEMI) myocardial infarction; J10.00 Influenza due to other identified influenza virus with unspecified type of pneumonia; G93.41 Metabolic encephalopathy; R65.21 Severe sepsis with septic shock; M80.00XA Age-related osteoporosis with current pathological fracture, unspecified site, initial encounter for fracture; E27.40 Unspecified adrenocortical insufficiency; E87.1 Hypo-osmolality and hyponatremia; Z79.02 Long term (current) use of antithrombotics/antiplatelets; Z88.0 Allergy status to penicillin; E03.9 Hypothyroidism, unspecified; I25.10 Atherosclerotic heart disease of native coronary artery without angina pectoris; Z98.61 Coronary angioplasty status; Z79.82 Long term (current) use of aspirin; Z79.899 Other long term (current) drug therapy; I25.2 Old myocardial infarction; I11.0 Hypertensive heart disease with heart failure; M06.9 Rheumatoid arthritis, unspecified; E78.5 Hyperlipidemia, unspecified; E83.42 Hypomagnesemia; E87.6 Hypokalemia; I70.0 Atherosclerosis of aorta; E05.90 Thyrotoxicosis, unspecified without thyrotoxic crisis or storm; Z90.49 Acquired absence of other specified parts of digestive tract
CPT/HCPCS: 31720; 36415; 36600; 71045-TC; 80048-TC; 80053-TC; 80061-TC; 80076-TC; 80202-TC; 82533; 82803-TC; 83540-TC; 83605-TC; 83735-TC; 83880; 84100-TC; 84439-TC; 84443-TC; 84484-TC; 85025-TC; 85730-TC; 87040-TC; 87070-TC; 87081-TC; 87086-TC; 92611-TC; 93307-TC; 94002-TC; 94003-TC; 94760-TC; 94799-TC; 97110-TC; 97112-TC; 97530-TC; 99082-TC; A4216; C1751; G0378; J0282; J0330; J0360; J0692; J1650; J1720; J1940; J1956; J2185; J2270; J3370; J3475; J3490; J7030; J7040; J7050; J7060

== ENCOUNTER 2020-04-28 11:17 | Outpatient (CLI) | payer MEDICARE, OTHER ==
[~2020-04-28 11:17] MED LIST changes: +ALBU2.5V13 NEB; -ASPI-1152 PO; +ASPI-1420 PO; +CEFE1PIG3 IV; +DOXY100T2 PO; +IPRA0.2S9 NEB; +METH4TAB3 PO
== END 2020-04-28 23:59 | disposition home or self-care (01) ==
LOC: US 11:17
PROVIDERS: ATTEND Internal Medicine
DX: I12.9 Hypertensive chronic kidney disease with stage 1 through stage 4 chronic kidney disease, or unspecified chronic kidney disease (principal); N18.9 Chronic kidney disease, unspecified
CPT/HCPCS: 76770-TC

== ENCOUNTER 2020-05-07 11:40 | Outpatient (CLI) | payer MEDICARE, OTHER ==
[2020-05-07 13:41] LABS: APPEARANCE,URINE SL CLOUDY (CLEAR); BILIRUBIN,URINE NEGATIVE (NEGATIVE); BLOOD, URINE TRACE-INTA Ery/uL (NEGATIVE); COLOR,URINE YELLOW (YELLOW); KETONES,URINE NEGATIVE (NEGATIVE); LEUKOCYTE ESTERASE ,URINE LARGE (NEGATIVE); NITRITE, URINE POSITIVE (NEGATIVE); PH,URINE 7.5 (5.0-8.0); PROTEIN,URINE NEGATIVE (NEGATIVE); UGLUCOSE NEGATIVE (NEGATIVE); UROBILINOGEN,URINE 0.2 EU/dL (0.2)
[2020-05-07 13:43] LABS: URINE SODIUM, RANDOM 43 mmol/l (40-220); URINE TOTAL PROTEIN 27.5 mg/dL (0-11.9)
[2020-05-07 13:57] LABS: FREE T4 (FREE THYROXINE) 1.16 ng/dL (0.76-1.46); THYROID STIMULATING HORMONE 3.393 uIU/mL (0.358-3.74)
[2020-05-07 14:08] LABS: OSMOLALITY,URINE 257 mOS/kg (340-1090)
[2020-05-07 14:13] LABS: ALANINE AMINOTRANSFERASE 27 U/L (12-78); ALBUMIN 3.4 g/dL (3.4-5.0); ALKALINE PHOSPHATASE 54 U/L (46-116); ASPARTATE AMINOTRANSFERASE 24 U/L (15-37); BILIRUBIN,TOTAL 0.3 mg/dL (0.2-1.0); CALCIUM, SERUM 8.1 mg/dL (8.5-10.1); CARBON DIOXIDE 25 mmol/L (21-32); CHLORIDE 90 mmol/L (98-107); CREATININE 0.8 mg/dL (0.6-1.3); GLUCOSE 95 mg/dL (74-106); MAGNESIUM 2.1 mg/dL (1.8-2.4); PHOSPHORUS 3.3 mg/dL (2.5-4.9); POTASSIUM 5.1 mmol/L (3.5-5.1); SODIUM SERUM 123 mmol/L (136-145); TOTAL PROTEIN, SERUM 6.8 g/dL (6.4-8.2); UREA NITROGEN, BLOOD 12 mg/dL (7-18)
[2020-05-07 14:46] LABS: C-REACTIVE PROTEIN < 0.2 mg/dL (0.0-0.9)
[2020-05-07 15:14] LABS: BACTERIA,URINE 4+ /HPF (None Seen); SQUAMOUS EPITHELIAL CELL,UR 0-2 /HPF (None Seen); WBC,URINE TOO NUMEROUS TO COUN /HPF (0-3)
== END 2020-05-07 23:59 | disposition home or self-care (01) ==
LOC: MSC 11:40
PROVIDERS: ATTEND Internal Medicine
DX: E87.1 Hypo-osmolality and hyponatremia (principal); I12.9 Hypertensive chronic kidney disease with stage 1 through stage 4 chronic kidney disease, or unspecified chronic kidney disease; N18.9 Chronic kidney disease, unspecified; I25.10 Atherosclerotic heart disease of native coronary artery without angina pectoris; Z98.61 Coronary angioplasty status; E03.9 Hypothyroidism, unspecified; E78.5 Hyperlipidemia, unspecified; M79.2 Neuralgia and neuritis, unspecified; S31.109A Unspecified open wound of abdominal wall, unspecified quadrant without penetration into peritoneal cavity, initial encounter; M81.0 Age-related osteoporosis without current pathological fracture; Z87.01 Personal history of pneumonia (recurrent); Z79.899 Other long term (current) drug therapy
CPT/HCPCS: 36415; 80053; 81001; 83735; 83935; 84100; 84155; 84300; 84439; 84443; 85652; 86140; 87086; G0463; 81000-TC

== ENCOUNTER 2020-05-13 09:15 | Outpatient (CLI) | payer MEDICARE, OTHER | END 2020-05-13 23:59 | disposition home or self-care (01) | LOC: WOU 09:15 | PROVIDERS: ATTEND Specialist | DX: L94.2 Calcinosis cutis (principal); L03.311 Cellulitis of abdominal wall | CPT/HCPCS: 11042; 87070; 87077; 88304; A6209 ==

== ENCOUNTER 2020-05-27 12:25 | Outpatient (CLI) | payer MEDICARE, OTHER | END 2020-05-27 23:59 | disposition home health service (06) | LOC: WOU 12:25 | PROVIDERS: ATTEND Specialist | DX: L03.311 Cellulitis of abdominal wall (principal); L94.2 Calcinosis cutis; Z79.899 Other long term (current) drug therapy | CPT/HCPCS: A6209; G0463 ==

== ENCOUNTER 2020-06-09 11:39 | Outpatient (CLI) | payer MEDICARE, OTHER ==
[2020-06-09 13:26] LABS: ALBUMIN 3.3 g/dL (3.4-5.0); BILIRUBIN,TOTAL 0.3 mg/dL (0.2-1.0); CALCIUM, SERUM 8.2 mg/dL (8.5-10.1); CREATININE 0.9 mg/dL (0.6-1.3); MAGNESIUM 2.3 mg/dL (1.8-2.4); POTASSIUM 4.7 mmol/L (3.5-5.1); TOTAL PROTEIN, SERUM 6.8 g/dL (6.4-8.2)
[2020-06-09 14:14] LABS: FREE T4 (FREE THYROXINE) 1.02 ng/dL (0.76-1.46); THYROID STIMULATING HORMONE 3.565 uIU/mL (0.358-3.74)
== END 2020-06-09 23:59 | disposition home or self-care (01) ==
LOC: MSC 11:39
PROVIDERS: ATTEND Internal Medicine
DX: K59.00 Constipation, unspecified (principal); G62.9 Polyneuropathy, unspecified; E87.1 Hypo-osmolality and hyponatremia; I12.9 Hypertensive chronic kidney disease with stage 1 through stage 4 chronic kidney disease, or unspecified chronic kidney disease; N18.9 Chronic kidney disease, unspecified; I25.10 Atherosclerotic heart disease of native coronary artery without angina pectoris; Z98.61 Coronary angioplasty status; E03.9 Hypothyroidism, unspecified; E78.5 Hyperlipidemia, unspecified; S31.109A Unspecified open wound of abdominal wall, unspecified quadrant without penetration into peritoneal cavity, initial encounter; M81.0 Age-related osteoporosis without current pathological fracture; Z79.899 Other long term (current) drug therapy
CPT/HCPCS: 36415; 80053; 83036; 83735; 84439; 84443; G0463

== ENCOUNTER → 2020-06-16 | Outpatient (CLI) | payer MEDICARE, OTHER | END | disposition home or self-care (01) | LOC: MSC 12:40 | PROVIDERS: ATTEND Anesthesiology | DX: M54.16 Radiculopathy, lumbar region (principal); M62.830 Muscle spasm of back; M40.299 Other kyphosis, site unspecified; G89.4 Chronic pain syndrome; M79.604 Pain in right leg; M25.561 Pain in right knee; Z99.3 Dependence on wheelchair; Z79.891 Long term (current) use of opiate analgesic ==

== ENCOUNTER 2020-07-14 14:55 | Outpatient (CLI) | payer MEDICARE, OTHER | END 2020-07-14 23:59 | disposition home or self-care (01) | LOC: MSC 14:55 | PROVIDERS: ATTEND Anesthesiology | DX: M54.16 Radiculopathy, lumbar region (principal); M40.299 Other kyphosis, site unspecified; M62.830 Muscle spasm of back; G89.4 Chronic pain syndrome; M79.606 Pain in leg, unspecified; M25.561 Pain in right knee; Z79.891 Long term (current) use of opiate analgesic ==

== ENCOUNTER 2020-09-02 15:40 | Inpatient (IN) | payer MEDICARE, OTHER ==
[~2020-09-02] VITALS: Ht 134.6 cm; Wt 55.3 kg
[2020-09-02 16:20] LABS: BASOPHILS % (AUTO) 0.6 % (0.0-2.0); EOSINOPHILS % (AUTO) 2.8 % (0.0-6.0); HEMATOCRIT 37 % (33-45); HEMOGLOBIN 12.4 g/dL (11.5-14.8); LYMPHOCYTES # (AUTO) 2.1 /CMM (0.8-4.8); LYMPHOCYTES % (AUTO) 45.8 % (20.0-44.0); MEAN CORPUSCULAR HGB CONC 34 g/dl (31.0-36.0); MEAN CORPUSCULAR VOLUME 99 fL (82-100); MONOCYTES # (AUTO) 0.5 /CMM (0.1-1.30); MONOCYTES % (AUTO) 10.7 % (2.0-12.0); NEUTROPHILS # (AUTO) 1.8 /CMM (1.8-8.9); NEUTROPHILS % (AUTO) 40.1 % (43.0-81.0); PLATELET COUNT (AUTO) 150 /CMM (150-450); RED BLOOD CELL COUNT(AUTO) 3.71 MIL/uL (4.0-5.2); WHITE BLOOD COUNT (AUTO) 4.5 K/uL (4.3-11.0)
[2020-09-02 16:28] LABS: CALCIUM, SERUM 9.5 mg/dL (8.5-10.1); CREATININE 0.8 mg/dL (0.6-1.3); POTASSIUM 4.3 mmol/L (3.5-5.1)
[2020-09-02 16:33] LABS: ALBUMIN 3.7 g/dL (3.4-5.0); BILIRUBIN,DIRECT 0.1 mg/dL (0.0-0.2); BILIRUBIN,TOTAL 0.5 mg/dL (0.2-1.0); TOTAL PROTEIN, SERUM 7.5 g/dL (6.4-8.2)
--- NOTE | 2020-09-02 16:33 | NUR ---
DAUGHTER TIFFANI CONTACT # [phone]
[2020-09-02] MEDS ORDERED: IV NS 0.9% 250 ML IV ONE (17:15)
[2020-09-02] MEDS ORDERED: IOHEXOL-350 100 ML VIAL IV ONE ×2 (17:15→21:57)
--- NOTE | 2020-09-02 17:22 | NUR ---
PATIENT PICKED UP BY [facility] [employer] [facility]IA GURNEY FOR CTA DISSECTION.
--- NOTE | 2020-09-02 17:43 | NUR ---
CALLED NURSING SUP FOR TELE BED.
[2020-09-02] MEDS ORDERED: ACETAMINOPHEN ES 500 MG TABLET PO ONE (18:30)
[2020-09-02] MEDS ORDERED: ACETAMINOPHEN ES 500 MG TABLET ONE (18:33)
[2020-09-02 18:38] LABS: BILIRUBIN,URINE Negative (NEGATIVE); LEUKOCYTE ESTERASE ,URINE Negative (NEGATIVE); NITRITE, URINE Negative (NEGATIVE); PH,URINE 7.5 (5.0-8.0); PROTEIN,URINE Negative (NEGATIVE); UGLUCOSE Negative (NEGATIVE); UROBILINOGEN,URINE 0.2 EU/dL (0.2)
--- NOTE | 2020-09-02 18:42 | NUR ---
COVID RESULT NEGATIVE
[2020-09-02 18:46] LABS: COLOR,URINE STRAW (YELLOW)
--- NOTE | 2020-09-02 19:15 | NUR ---
REPORT GIVEN TO JACKELYN SCHULTZ FOR RAMANA
--- NOTE | 2020-09-02 19:17 | NUR ---
[facility] dr garcia paged
--- NOTE | 2020-09-02 19:17 | NUR ---
X RAY ELECTRONICS WIRING TECHNICIAN AT BEDSIDE FOR BNP
--- NOTE | 2020-09-02 19:46 | NUR ---
PT AAOX4. AWARE OF PLAN OF CARE. VITALS STABLE. PT RECALLED TAKING A SHOWER TODAY WHICH THE WATER WAS COLD, THEN FELT MINOR CHEST PAIN. NOW THE PT DENIES CP. ONLY COMPLAINT IS R FOOT PAIN, WHICH SHE STATES IS CHRONIC. PT TAKES NORCO 10 FOR THE PAIN.
--- NOTE | 2020-09-02 20:21 | NUR ---
PT C/O R FOOT PAIN (CHRONIC) AWARE. PT WAS GIVEN TYLENOL. WILL REASSESS PT'S PAIN LEVEL.
[2020-09-02] MEDS ORDERED: HYDROCODONE/APAP 5/325MG TABLET PO STA (21:26)
[2020-09-02] MEDS ORDERED: HYDROCODONE/APAP 5/325MG TABLET ONE (21:30)
[2020-09-02] MEDS ORDERED: SIMVASTATIN 40 MG TABLET PO SCH (22:00)
[2020-09-02] MEDS ORDERED: SIMVASTATIN 20 MG TABLET ONE (22:00)
[2020-09-02] MEDS ORDERED: ENOXAPARIN SODIUM 40 MG/0.4 ML DISP.SYRIN SQ ONE (22:00)
[2020-09-02] MEDS ORDERED: ASPIRIN EC 325 MG TABLET.DR PO ONE (22:01)
[2020-09-02] MEDS: ENOXAPARIN SODIUM 40 MG/0.4 ML DISP.SYRIN SQ SCH (22:02)
[2020-09-02] MEDS: ASPIRIN EC 325 MG TABLET.DR PO SCH (22:04)
--- NOTE | 2020-09-02 22:05 | NUR ---
BROUGHT TO CT
--- NOTE | 2020-09-02 22:31 | NUR ---
DR. DORANTES FROM RADIOLOGY CALLED TO REPORT CTCA RESULTS. 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 RUBY
--- NOTE | 2020-09-02 22:58 | NUR ---
PT RESTING IN BED COMFORTABLY. VSS.
[2020-09-03 04:18] LABS: BASOPHILS # (AUTO) 0.1 /CMM (0.0-0.2); BASOPHILS % (AUTO) 0.7 % (0.0-2.0); EOSINOPHILS % (AUTO) 0.7 % (0.0-6.0); HEMATOCRIT 41 % (33-45); LYMPHOCYTES # (AUTO) 2.9 /CMM (0.8-4.8); LYMPHOCYTES % (AUTO) 35.6 % (20.0-44.0); MEAN CORPUSCULAR HGB CONC 34 g/dl (31.0-36.0); MEAN CORPUSCULAR VOLUME 98 fL (82-100); MONOCYTES # (AUTO) 0.9 /CMM (0.1-1.30); MONOCYTES % (AUTO) 10.8 % (2.0-12.0); NEUTROPHILS # (AUTO) 4.2 /CMM (1.8-8.9); NEUTROPHILS % (AUTO) 52.2 % (43.0-81.0); PLATELET COUNT (AUTO) 171 /CMM (150-450); RED BLOOD CELL COUNT(AUTO) 4.19 MIL/uL (4.0-5.2); WHITE BLOOD COUNT (AUTO) 8.1 K/uL (4.3-11.0)
[2020-09-03 04:30] LABS: CALCIUM, SERUM 10.1 mg/dL (8.5-10.1); CREATININE 0.8 mg/dL (0.6-1.3); POTASSIUM 3.6 mmol/L (3.5-5.1)
--- NOTE | 2020-09-03 04:38 | NUR ---
PT ASLEEP, VSS.
[2020-09-03 05:35] LABS: THYROID STIMULATING HORMONE 1.067 uIU/mL (0.358-3.74)
[2020-09-03] MEDS ORDERED: HYDROCODONE/APAP 5/325MG TABLET ONE (06:05)
[2020-09-03] MEDS: HYDROCODONE/APAP 5/325MG TABLET PO PRN ×4 (06:08→20:30)
--- NOTE | 2020-09-03 06:18 | NUR ---
TELE 309-5
--- NOTE | 2020-09-03 07:43 | NUR ---
REPORT GIVEN TO MONICA SCHULTZ FOR RAMANA
--- NOTE | 2020-09-03 07:54 | NUR ---
INSTRUCTIONAL DEVELOPER AT BEDSIDE FOR CAROTID DUPLEX
--- NOTE | 2020-09-03 08:09 | NUR ---
REPORT GIVEN TO MELIA SCHULTZ OF TELE UNIT
--- NOTE | 2020-09-03 08:30 | NUR ---
MS RN NOTES RECEIVED PT ON MINI FROM ER. PT IS AWAKE, A/O X3. CLEAR SPEECH, DENIES PAIN. DENIES SOB. PT ON RA. RESPIRATIONS REGULAR AND UNLABORED. RFA IV #22. BED LOW AND LOCKED. SIDE RAILS X2. WILL CONTINUE TO MONITOR PT.
[2020-09-03] MEDS ORDERED: CHOL100062 PO (08:38)
[2020-09-03] MEDS ORDERED: DENO60DI SQ (08:38)
[2020-09-03] MEDS ORDERED: SODI1TAB66 PO (08:38)
[2020-09-03] MEDS ORDERED: ASCO-352 PO (08:38)
[2020-09-03] MEDS ORDERED: POLY15DR40 EACHEYE (08:38)
[2020-09-03] MEDS ORDERED: LEVO25TA7 PO (08:38)
[2020-09-03] MEDS ORDERED: EVOL140S2 SQ (08:38)
[2020-09-03] MEDS ORDERED: LORA10TA68 PO (08:38)
[2020-09-03] MEDS ORDERED: HYDR-3980 PO (08:38)
[2020-09-03] MEDS ORDERED: ALBU8.5H8 IH (08:38)
[2020-09-03] MEDS ORDERED: TOBR5DRO OP (08:38)
[2020-09-03] MEDS ORDERED: GABA600T12 PO (08:38)
[2020-09-03] MEDS: PANTOPRAZOLE 40 MG TABLET.DR PO SCH (10:19)
[2020-09-03] MEDS: ASPIRIN EC 325 MG TABLET.DR PO SCH (10:19)
--- NOTE | 2020-09-03 11:06 | NUR ---
Shells Inspector Consult: Shells Inspector Consult was requested for stroke by DO Kelley. Pt is an 85 year old female who was admitted to [facility] on 09/02/20 for TIA. Upon delinquency prevention social worker evaluation, pt appears to be alert and oriented x3 (place, self and situation). Pt appears to be in a depressed mood and presents with a calm and congruent affect. Pt states that she has a granddaughter who is involved in her care and SW received verbal permission to speak to granddaughter. SW then went on to conduct a Post Stroke Depression scale and the pt scored a 5 out of 27 which placed her in the mild category. Pt stated that she still enjoys and has interest in doing activities that she liked to do before. Pt states that she is able to walk around and has a decent amount of energy. Pt states that she has an easier time sleeping with her medications but if she does not receive them she does struggle to sleep. Pt stated that her appetite has deteriorated a bit and that she does feel slightly depressed. SW provided the pt with the Stroke resources packet and placed a copy in the pts chart. ANTONIO spoke with Charge Nurse Juanita and informed her that the pt scored 5 on the scale and that a psychiatry consult will not be necessary. SW then called the pts granddaughter, Karrie ([phone]), who stated that she informed the nurses the prior night that the pt did not have a stroke from what she knows. Pts granddaughter states that she was helping the pt take a shower when the pt began laughing because she is ticklish and that the pt then started stating that she was having a difficult time breathing. Pts granddaughter states that the pt began clutching her chest and stated, "Help me help me I cannot breathe." Pt was then taken to the hospital at this point. Pts granddaughter stated that the pt lives in an apartment with her daughter, granddaughter, and boyfriend of 40 years who is currently covid negative but may be struggling with bronchitis. SW stated that she will speak to the nurses about the information that was provided from the granddaughter and then went over the stroke resources and signs as a precautionary measure.
[2020-09-03] MEDS ORDERED: GADOTERATE MEGLUMINE 10 MMOL/20 ML VIAL IV ONE (14:41)
--- NOTE | 2020-09-03 18:57 | NUR ---
MS RN CLOSING NOTES PT IS RESTING IN BED, SEMI FOWLERS. A/O X3. PT IS ON RA O2. RFA IV #22, SALINE LOCK, INTACT, FLUSHES WELL. DENIES PAIN AT THIS TIME. RESPIRATIONS ARE NON-LABORED. BED LOCKED AND IN LOWEST POSITION. SIDE RAILS X2. WILL ENDORSE TO NEXT SHIFT.
[2020-09-03 20:00] VITALS: BP 99/66
[2020-09-03] MEDS: ENOXAPARIN SODIUM 40 MG/0.4 ML DISP.SYRIN SQ SCH (21:17)
[2020-09-03] MEDS: SIMVASTATIN 20 MG TABLET PO SCH (21:19)
[2020-09-04] MEDS: HYDROCODONE/APAP 5/325MG TABLET PO PRN ×4 (03:20→21:54)
--- NOTE | 2020-09-04 06:29 | NUR ---
RN NOTES PATIENT IS IN BED RESTING. PATIENT IS IN NO ACUTE DISTRESS. NO SOB NOTED, SAFETY PRECAUTIONS ARE IN PLACE, CALL LIGHT WITHIN REACH. ALL NEEDS ATTENDED AND ANTICIPATED, ENDORSE PATIENT TO THE AM SHIFT NURSE FOR CONTIUITY WITH CRAE .
--- NOTE | 2020-09-04 07:45 | NUR ---
MS RN OPENING NOTE PATIENT IS IN BED RESTING. PATIENT IS IN NO ACUTE DISTRESS. PATIENT IS ON ROOM AIR. NO SOB NOTED. PATIENT HAS WEAKNESS AND PAIN, UNABLE TO GET UP. SAFETY PRECAUTIONS ARE IN PLACE. BED IN THE LOWEST POSITION, SIDE RAILS ARE UP. CALL LIGHT WITHIN REACH. WILL CONTINUE TO MONITOR CLOSELY.
--- NOTE | 2020-09-04 08:15 | NUR ---
MS RN NOTE UPON MORNING ASSESSMENT PATIENT IS MISSING ONE HEARING AID. PHARMACIST IN CHARGE OIL RIG DRILLER, DID NOT SEE PATIENTS SECOND HEARING AID. IT WAS MISSING DURING THE PHARMACIST IN CHARGE TIME.
[2020-09-04] MEDS: ASPIRIN EC 325 MG TABLET.DR PO SCH (08:22)
[2020-09-04] MEDS: PANTOPRAZOLE 40 MG TABLET.DR PO SCH (08:22)
[2020-09-04] MEDS: CARVEDILOL 12.5 MG TABLET PO SCH ×2 (08:24→20:50)
--- NOTE | 2020-09-04 08:25 | NUR ---
MS RN NOTE PATIENTS MORNING BLOOD PRESSURE IS 99/60 PULSE 78, DID NOT ADMINISTER SCHEDULED COREG.
[2020-09-04 08:27] VITALS: BP 99/60
[2020-09-04] MEDS: DOCUSATE SODIUM 100 MG CAPSULE PO SCH ×2 (12:34→18:28)
[2020-09-04 16:25] VITALS: BP 115/72
--- NOTE | 2020-09-04 18:57 | NUR ---
MS RN CLOSING NOTE PATIENT IS IN BED RESTING. PATIENT IS IN NO ACUTE DISTRESS. PATIENT IS ON ROOM AIR TOLERATING WELL. SAFETY PRECAUTIONS ARE IN PLACE. BED IN THE LOWEST POSITION, SIDE RAILS ARE UP. CALL LIGHT WITHIN REACH. ENDORSE PATIENT TO THE RETIREMENT CONSULTANT NURSE FOR RAMANA.
--- NOTE | 2020-09-04 19:15 | NUR ---
RN NOTES: RECEIVED AWAKE,LYING COMFORTABLY IN BED, A/OX2-3 KENYAN SPEAKING BUT ABLE TO VERBALIZED NEEDS IN ARMENIAN, ORIENTED TO UNIT AND STAFF,KEPT CALL LIGHT WITHIN EASY REACH. PATIENT IS CONTINENT/INCONTINENT IN B/B. SKIN IS INTACT UNABLE TO AMBULATE WITHOUT ASSISTANCE. FALL,SAFETY AND ASPIRATION PRECAUTION OBSERVED, ON ROOM AIR NON LABORED BREATHING. -PER RN ENDORSEMENT PATIENT TOOK OUT HER CANNULA AND NOT YET REINSERTED.SHE WAS STARTED ON STOOL SOFTENER AND HAD BM THIS MORNING-SMALL AMOUNT.
[2020-09-04 20:00] VITALS: BP 142/69
[2020-09-04] MEDS: ENOXAPARIN SODIUM 40 MG/0.4 ML DISP.SYRIN SQ SCH (20:51)
[2020-09-04] MEDS: SIMVASTATIN 20 MG TABLET PO SCH (21:53)
--- NOTE | 2020-09-04 21:54 | NUR ---
RN NOTES: PATIENT COMPLAINED OF PAIN 10/10 SHE IS ASKING FOR HER PAIN MEDICATION, NON PHARMACOLOGIC INTERVENTION RENDERED, WARM BLANKET, DIM LIT AND SOFT MUSIC PLAYED IN THE TV.
--- NOTE | 2020-09-04 22:58 | NUR ---
RN NOTES: CALLS AND NEEDS ATTENDED, SHE WAS CRYING WHEN SHE TALK TO HER DAUGHTER, BUT WHEN RN EXPLAINED TO HER WE HAVE TO WAIT FOR THE PAIN MEDICATION TO TAKE EFFECT SHE LISTENED AND EXPRESS HER THANK YOU. KEPT COMFORTABLE IN BED, KEPT CALL LIGHT WITHIN EASY REACH.
--- NOTE | 2020-09-04 23:30 | NUR ---
RN NOTES: -AT 2200 TRIED TO EXPLAIN TO HER WE NEED TO REINSERT IV CANNULA, SHE SAID NOT NOW, SHE REFUSED FOR IV REINSERTION.
[2020-09-05] MEDS: HYDROCODONE/APAP 5/325MG TABLET PO PRN ×2 (02:16→12:14)
--- NOTE | 2020-09-05 02:21 | NUR ---
RN NOTES: PATIENT CANNOT SLEEP, SHE SAID SHE IS STILL IN PAIN,SHE WANTS HER PAIN MEDICATION,NON PHARMACOLOGIC INTERVENTION RENDERED,WARM BLANKET AND DIM LIT.KEPT CALL LIGHT WITHIN EASY REACH.
--- NOTE | 2020-09-05 05:43 | NUR ---
RN NOTES: ABLE TO SLEEP AND REST, AWAKEN FOR BLOOD TEST.
[2020-09-05 06:13] LABS: BASOPHILS % (AUTO) 0.4 % (0.0-2.0); HEMATOCRIT 35 % (33-45); HEMOGLOBIN 11.8 g/dL (11.5-14.8); LYMPHOCYTES # (AUTO) 2.1 /CMM (0.8-4.8); LYMPHOCYTES % (AUTO) 38.1 % (20.0-44.0); MEAN CORPUSCULAR HGB CONC 34 g/dl (31.0-36.0); MEAN CORPUSCULAR VOLUME 98 fL (82-100); MONOCYTES # (AUTO) 0.7 /CMM (0.1-1.30); MONOCYTES % (AUTO) 13.8 % (2.0-12.0); NEUTROPHILS # (AUTO) 2.5 /CMM (1.8-8.9); NEUTROPHILS % (AUTO) 45.7 % (43.0-81.0); PLATELET COUNT (AUTO) 158 /CMM (150-450); RED BLOOD CELL COUNT(AUTO) 3.53 MIL/uL (4.0-5.2); WHITE BLOOD COUNT (AUTO) 5.4 K/uL (4.3-11.0)
--- NOTE | 2020-09-05 07:00 | NUR ---
RN OPENING NOTE RECEIVED PT AWAKE IN BED AT THIS TIME. AOX3-4. PT ABLE TO MAKE NEEDS KNOWN. NO SOB NOTED, NO S/S OF ANY ACUTE DISTRESS NOTED, NO C/O PAIN AT THIS TIME. IV ACCESS NOTED IN RFA G#24, INTACT PATENT AND FLUSHING WELL. ASPIRATIONS AND SAFETY PRECAUTIONS IN PLACE AND MAINTAINED AT ALL TIMES. BED IN LOWEST LOCKED POSITION, SIDE RAILS UP, HOB ELEVATED, TABLE AND CALL LIGHT WITHIN REACH. WILL CONTINUE TO MONITOR.
[2020-09-05 07:28] LABS: MAGNESIUM 1.8 mg/dL (1.8-2.4); PHOSPHORUS 4.1 mg/dL (2.5-4.9); POTASSIUM 3.8 mmol/L (3.5-5.1)
[2020-09-05 08:00] VITALS: BP 121/71
--- NOTE | 2020-09-05 08:08 | NUR ---
RN NOTES: PLEASANT MOOD SHE ATE HER BREAKFAST, REMINDED WE NEED TO INSERT HER IV CANNULA I HAVE TOLD HER LAST NIGHT, SHE AGREED, INSERTED ON THE RFA G#24 1 ATTEMPT WITH GOOD BACK FLOW, SECURE WITH TRANSPARENT DRESSING. FOR BLOOD TEST THIS MORNING.ENDORSED FOR CONTINUITY OF CARE.
[2020-09-05] MEDS: ASPIRIN EC 325 MG TABLET.DR PO SCH (08:40)
[2020-09-05 08:41] VITALS: BP 121/71
[2020-09-05] MEDS: PANTOPRAZOLE 40 MG TABLET.DR PO SCH (08:41)
[2020-09-05] MEDS: CARVEDILOL 12.5 MG TABLET PO SCH (08:41)
[2020-09-05] MEDS: DOCUSATE SODIUM 100 MG CAPSULE PO SCH ×2 (08:41→12:14)
--- NOTE | 2020-09-05 10:32 | NUR ---
KALEN ([phone]), PT'S DAUGHTER CALLED AND WAS UPDATED OF PT'S STATUS AT THIS TIME. WILL CONTINUE TO MONITOR
--- NOTE | 2020-09-05 12:16 | NUR ---
PT COMPLAINED OF ACHING RIGHT ANKLE PAIN OF 7/10. PT NOTED CRYING AND GRIMACING. PER PT REQUEST, NORCO 5-325 ADMINISTERED AT THIS TIME PER ORDER. WILL CONTINUE TO MONITOR
--- NOTE | 2020-09-05 14:02 | NUR ---
PT DISCHARGED, PENDING ACID REGENERATOR, BELONGINGS ACCOUNTED FOR, PT MISSING ONE HEARING AID. PER PT, SHE MISPLACED HEARING AID A COUPLE OF DAYS BACK. RIMA, CHARGE NURSE MADE AWARE, VERÓNICA QUINN, NURSE AND RIMA, CHARGE NURSE UNABLE TO FIND HEARING AID. WILL CONTINUE WITH PLAN OF CARE
--- NOTE | 2020-09-05 16:05 | NUR ---
ORTHOPEDICS TEACHER NOTES PT DISCHARGE TO HOME AT THIS TIME. PT MEDICALLY STABLE AND CLEARED FOR DISCHARGE BY DOCTOR RANGEL. ALL DISCHARGE INSTRUCTIONS PROVIDED, PT VERBALIZED UNDERSTANDING. ALL CARE, NEEDS, MEDICATIONS AND TREATMENT ADMINISTERED ANTICIPATED PER PROTOCOL. PT KEPT CLEAN AND DRY. BELONGINGS ACCOUNTED FOR, SIGNED BY PT AND WITH PT. IV ACCESS REMOVED, PRESSURE APPLIED, SECURED WITH GAUZE AND TAPE. NO SIGN OF BLEEDING OR INFILTRATION NOTED. PT TRANSPORTED BY WHEEL FROM UNIT IN STABLE CONDITION, ACCOMPANIED BY CHEYENNE SANCHES. PT PICKED UP IN PRIVATE CARE BY FAMILY (MARK). RIMA, CHARGE NURSE AND DR RANGEL AWARE
== END 2020-09-05 16:32 | disposition home health service (06) | DRG 64 ==
LOC: ER 15:45 → TRANSITION 20:58 → MED 09-03 06:27
PROVIDERS: ADMIT Student in an Organized Health Care Education/Training Program; ATTEND Nurse Practitioner Acute Care
DX: I63.81 Other cerebral infarction due to occlusion or stenosis of small artery (principal); I21.4 Non-ST elevation (NSTEMI) myocardial infarction; E87.1 Hypo-osmolality and hyponatremia; M80.00XA Age-related osteoporosis with current pathological fracture, unspecified site, initial encounter for fracture; E27.40 Unspecified adrenocortical insufficiency; J98.11 Atelectasis; I24.9 Acute ischemic heart disease, unspecified; R47.01 Aphasia; E86.0 Dehydration; I11.0 Hypertensive heart disease with heart failure; I50.9 Heart failure, unspecified; R29.700 NIHSS score 0; E78.5 Hyperlipidemia, unspecified; E03.9 Hypothyroidism, unspecified; I25.10 Atherosclerotic heart disease of native coronary artery without angina pectoris; R40.2362 Coma scale, best motor response, obeys commands, at arrival to emergency department; R40.2142 Coma scale, eyes open, spontaneous, at arrival to emergency department; R40.2252 Coma scale, best verbal response, oriented, at arrival to emergency department; Z95.5 Presence of coronary angioplasty implant and graft; Z79.82 Long term (current) use of aspirin; Z90.710 Acquired absence of both cervix and uterus; Z88.0 Allergy status to penicillin; Z79.51 Long term (current) use of inhaled steroids; Z79.899 Other long term (current) drug therapy; M06.9 Rheumatoid arthritis, unspecified; I48.91 Unspecified atrial fibrillation; I25.2 Old myocardial infarction; I67.2 Cerebral atherosclerosis; Z20.822 Contact with and (suspected) exposure to COVID-19; Z79.02 Long term (current) use of antithrombotics/antiplatelets; R91.1 Solitary pulmonary nodule; S82.892A Other fracture of left lower leg, initial encounter for closed fracture; X58.XXXA Exposure to other specified factors, initial encounter; Y92.9 Unspecified place or not applicable
CPT/HCPCS: 36415; 70450-TC; 70496-TC; 70498-TC; 70553-TC; 71045-TC; 80048-TC; 80061-TC; 80076-TC; 82378; 83605-TC; 83690-TC; 83735-TC; 83880; 84100-TC; 84443-TC; 84484-TC; 85025-TC; 85378-TC; 85730-TC; 87040-TC; 87081-TC; 87086-TC; 87186-TC; 92526; 92611-TC; 93880-TC; 97112-TC; 97116-TC; 97530-TC; A9575; C9803; G0378; J1650; J7050; Q9967

== ENCOUNTER 2020-10-08 10:39 | Outpatient (CLI) | payer MEDICARE, OTHER ==
[~2020-10-08 10:39] MED LIST changes: -ALBU2.5V13 NEB; +ALBU8.5H8 IH; +ASCO-352 PO; -ASPI-1420 PO; -BENZ-38 PO; -BIMA2.5D5 EACHEYE; -CALC-7 PO; -CEFE1PIG3 IV; +CHOL100062 PO; -CYCL5TAB PO; +DENO60DI SQ; -DOXY100T2 PO; +EVOL140S2 SQ; +GABA600T12 PO; +HYDR-3980 PO; -HYDR-4384 PO; -IPRA0.2S9 NEB; +LEVO25TA7 PO; +LORA10TA68 PO; -METH4TAB3 PO; -OLOP5DRO EACHEYE; +POLY15DR40 EACHEYE; +SODI1TAB66 PO; +TOBR5DRO OP
[2020-10-08 12:17] LABS: BASOPHILS % (AUTO) 0.4 % (0.0-2.0); EOSINOPHILS % (AUTO) 4.7 % (0.0-6.0); HEMATOCRIT 33 % (33-45); HEMOGLOBIN 10.9 g/dL (11.5-14.8); LYMPHOCYTES # (AUTO) 1.6 /CMM (0.8-4.8); MEAN CORPUSCULAR HGB CONC 33 g/dl (31.0-36.0); MEAN CORPUSCULAR VOLUME 99 fL (82-100); MONOCYTES # (AUTO) 0.6 /CMM (0.1-1.30); MONOCYTES % (AUTO) 11.9 % (2.0-12.0); NEUTROPHILS # (AUTO) 2.6 /CMM (1.8-8.9); PLATELET COUNT (AUTO) 184 /CMM (150-450); WHITE BLOOD COUNT (AUTO) 5.1 K/uL (4.3-11.0)
[2020-10-08 12:30] LABS: ALANINE AMINOTRANSFERASE 30 U/L (12-78); ALBUMIN 3.4 g/dL (3.4-5.0); ALKALINE PHOSPHATASE 61 U/L (46-116); ASPARTATE AMINOTRANSFERASE 29 U/L (15-37); BILIRUBIN,TOTAL 0.4 mg/dL (0.2-1.0); CALCIUM, SERUM 8.8 mg/dL (8.5-10.1); CARBON DIOXIDE 24 mmol/L (21-32); CHLORIDE 103 mmol/L (98-107); CREATININE 0.9 mg/dL (0.6-1.3); GLUCOSE 102 mg/dL (74-106); MAGNESIUM 1.9 mg/dL (1.8-2.4); PHOSPHORUS 5.4 mg/dL (2.5-4.9); POTASSIUM 4.4 mmol/L (3.5-5.1); SODIUM SERUM 135 mmol/L (136-145); TOTAL PROTEIN, SERUM 6.8 g/dL (6.4-8.2); UREA NITROGEN, BLOOD 26 mg/dL (7-18)
[2020-10-08 12:42] LABS: THYROID STIMULATING HORMONE 3.624 uIU/mL (0.358-3.74)
[2020-10-08 12:43] LABS: C-REACTIVE PROTEIN < 0.2 mg/dL (0.0-0.9)
[2020-10-08 13:24] LABS: BILIRUBIN,URINE NEGATIVE (NEGATIVE); COLOR,URINE YELLOW (YELLOW); LEUKOCYTE ESTERASE ,URINE MODERATE (NEGATIVE); NITRITE, URINE NEGATIVE (NEGATIVE); PH,URINE 5.5 (5.0-8.0); PROTEIN,URINE TRACE mg/dl (NEGATIVE); UGLUCOSE NEGATIVE (NEGATIVE); UROBILINOGEN,URINE 0.2 EU/dL (0.2)
[2020-10-08 13:33] LABS: BACTERIA,URINE Many /HPF (None Seen); RBC,URINE 0-2 /HPF (0-2); SQUAMOUS EPITHELIAL CELL,UR Few /HPF (None Seen); WBC,URINE 51-80 /HPF (0-3)
== END 2020-10-08 23:59 | disposition home or self-care (01) ==
LOC: MSC 10:39
PROVIDERS: ATTEND Internal Medicine
DX: R60.0 Localized edema (principal); E87.1 Hypo-osmolality and hyponatremia; K59.00 Constipation, unspecified; N18.9 Chronic kidney disease, unspecified; I25.10 Atherosclerotic heart disease of native coronary artery without angina pectoris; Z98.61 Coronary angioplasty status; M79.2 Neuralgia and neuritis, unspecified; Z79.891 Long term (current) use of opiate analgesic; E03.9 Hypothyroidism, unspecified; E78.5 Hyperlipidemia, unspecified; Z87.01 Personal history of pneumonia (recurrent); M81.0 Age-related osteoporosis without current pathological fracture; Z79.899 Other long term (current) drug therapy
CPT/HCPCS: 36415; 71046; 80053; 81001; 82043; 82306; 82570; 83036; 83735; 84100; 84155; 84439; 84443; 85025; 85652; 86140; 87077; 87086; 87186; G0463

== ENCOUNTER 2020-10-13 09:30 | Outpatient (CLI) | payer MEDICARE, OTHER | END 2020-10-13 23:59 | disposition home or self-care (01) | LOC: MSC 09:30 | PROVIDERS: ATTEND Internal Medicine | DX: R60.0 Localized edema (principal); S82.891D Other fracture of right lower leg, subsequent encounter for closed fracture with routine healing; X58.XXXD Exposure to other specified factors, subsequent encounter; K59.00 Constipation, unspecified; M81.0 Age-related osteoporosis without current pathological fracture; Z87.01 Personal history of pneumonia (recurrent); G62.9 Polyneuropathy, unspecified; E78.5 Hyperlipidemia, unspecified; I25.10 Atherosclerotic heart disease of native coronary artery without angina pectoris; Z98.61 Coronary angioplasty status; Z79.890 Hormone replacement therapy ==

== ENCOUNTER 2020-10-20 11:07 | Outpatient (CLI) | payer MEDICARE, OTHER ==
[2020-10-20 12:07] LABS: ALBUMIN 3.7 g/dL (3.4-5.0); BILIRUBIN,TOTAL 0.3 mg/dL (0.2-1.0); CALCIUM, SERUM 8.7 mg/dL (8.5-10.1); CREATININE 1.1 mg/dL (0.6-1.3); MAGNESIUM 2.6 mg/dL (1.8-2.4); PHOSPHORUS 3.9 mg/dL (2.5-4.9); POTASSIUM 4.9 mmol/L (3.5-5.1); TOTAL PROTEIN, SERUM 7.5 g/dL (6.4-8.2)
== END 2020-10-20 23:59 | disposition home or self-care (01) ==
LOC: LAB 11:07
PROVIDERS: ATTEND Internal Medicine
DX: E03.9 Hypothyroidism, unspecified (principal); I10 Essential (primary) hypertension
CPT/HCPCS: 36415; 80053-TC; 83735-TC; 84100-TC

== ENCOUNTER 2020-10-22 11:00 | Outpatient (CLI) | payer MEDICARE, OTHER | END 2020-10-22 23:59 | disposition home or self-care (01) | LOC: MSC 11:00 | PROVIDERS: ATTEND Internal Medicine | DX: Z09 Encounter for follow-up examination after completed treatment for conditions other than malignant neoplasm (principal); I12.9 Hypertensive chronic kidney disease with stage 1 through stage 4 chronic kidney disease, or unspecified chronic kidney disease; N18.9 Chronic kidney disease, unspecified; K59.00 Constipation, unspecified; Z98.61 Coronary angioplasty status; M79.2 Neuralgia and neuritis, unspecified; E03.9 Hypothyroidism, unspecified; E78.5 Hyperlipidemia, unspecified; Z87.01 Personal history of pneumonia (recurrent); M81.0 Age-related osteoporosis without current pathological fracture; Z79.899 Other long term (current) drug therapy ==

== ENCOUNTER 2021-02-04 10:23 | Outpatient (CLI) | payer MEDICARE, OTHER | END 2021-02-04 23:59 | disposition home or self-care (01) | LOC: MSC 10:23 | PROVIDERS: ATTEND Internal Medicine | DX: H60.92 Unspecified otitis externa, left ear (principal); K59.00 Constipation, unspecified; I12.9 Hypertensive chronic kidney disease with stage 1 through stage 4 chronic kidney disease, or unspecified chronic kidney disease; N18.9 Chronic kidney disease, unspecified; I25.10 Atherosclerotic heart disease of native coronary artery without angina pectoris; Z98.61 Coronary angioplasty status; E03.9 Hypothyroidism, unspecified; E78.5 Hyperlipidemia, unspecified; G62.9 Polyneuropathy, unspecified; Z87.01 Personal history of pneumonia (recurrent); M81.0 Age-related osteoporosis without current pathological fracture; S82.891D Other fracture of right lower leg, subsequent encounter for closed fracture with routine healing ==

== ENCOUNTER 2021-02-28 13:51 | Emergency (ER) | payer MEDICARE, OTHER ==
[~2021-02-28] VITALS: Ht 149.9 cm; Wt 45.4 kg
--- NOTE | 2021-02-28 14:35 | NUR ---
DR KENNY AT BEDSIDE FOR EVAL.
--- NOTE | 2021-02-28 14:44 | NUR ---
RADIOLOGY AT BEDSIDE FOR R ANKLE AND R SHOULDER XRAY.
[2021-02-28] MEDS ORDERED: ACETAMINOPHEN ES 500 MG TABLET ONE (14:50)
--- NOTE | 2021-02-28 14:57 | NUR ---
PT TO RADIOLOGY FOR HEAD AND C SPINE CT SCAN VIA [facility].
[2021-02-28] MEDS ORDERED: ACETAMINOPHEN ES 500 MG TABLET PO ONE (15:00)
[2021-02-28 16:43] VITALS: BP 118/76
--- NOTE | 2021-02-28 16:43 | NUR ---
Patient discharged to home in stable condition. Written and verbal after care instructions given. Patient verbalizes understanding of instruction.
== END 2021-02-28 16:44 | disposition home or self-care (01) ==
LOC: ER 13:51
DX: S93.491A Sprain of other ligament of right ankle, initial encounter (principal); I10 Essential (primary) hypertension; M06.9 Rheumatoid arthritis, unspecified; Z90.49 Acquired absence of other specified parts of digestive tract; Z98.890 Other specified postprocedural states; Z88.0 Allergy status to penicillin; Z79.899 Other long term (current) drug therapy; W01.0XXA Fall on same level from slipping, tripping and stumbling without subsequent striking against object, initial encounter; Y93.E1 Activity, personal bathing and showering; Y92.091 Bathroom in other non-institutional residence as the place of occurrence of the external cause; Y99.8 Other external cause status
CPT/HCPCS: 70450-TC; 72125-TC; 73030-TC; 73610-TC

== ENCOUNTER 2021-04-15 11:26 | Outpatient (CLI) | payer MEDICARE, OTHER | END 2021-04-15 23:59 | disposition home or self-care (01) | LOC: MSC 11:26 | PROVIDERS: ATTEND Internal Medicine | DX: M54.9 Dorsalgia, unspecified (principal); M25.50 Pain in unspecified joint; Z91.81 History of falling; H60.92 Unspecified otitis externa, left ear; R60.9 Edema, unspecified; K59.00 Constipation, unspecified; N18.9 Chronic kidney disease, unspecified; I25.10 Atherosclerotic heart disease of native coronary artery without angina pectoris; Z98.61 Coronary angioplasty status; G62.9 Polyneuropathy, unspecified; E03.9 Hypothyroidism, unspecified; Z79.890 Hormone replacement therapy; E78.5 Hyperlipidemia, unspecified; Z87.01 Personal history of pneumonia (recurrent); M81.0 Age-related osteoporosis without current pathological fracture; S82.891D Other fracture of right lower leg, subsequent encounter for closed fracture with routine healing; Z79.899 Other long term (current) drug therapy ==

== ENCOUNTER 2021-05-18 10:36 | Outpatient (CLI) | payer MEDICARE, OTHER | END 2021-05-18 23:59 | disposition home or self-care (01) | LOC: MSC 10:36 | PROVIDERS: ATTEND Internal Medicine | DX: M25.561 Pain in right knee (principal); M25.562 Pain in left knee; M54.9 Dorsalgia, unspecified; M25.50 Pain in unspecified joint; H60.92 Unspecified otitis externa, left ear; K59.00 Constipation, unspecified; N18.9 Chronic kidney disease, unspecified; I25.10 Atherosclerotic heart disease of native coronary artery without angina pectoris; Z98.61 Coronary angioplasty status; G62.9 Polyneuropathy, unspecified; E03.9 Hypothyroidism, unspecified; Z79.890 Hormone replacement therapy; E78.5 Hyperlipidemia, unspecified; Z87.01 Personal history of pneumonia (recurrent); M81.0 Age-related osteoporosis without current pathological fracture; S82.891D Other fracture of right lower leg, subsequent encounter for closed fracture with routine healing; Z79.899 Other long term (current) drug therapy; Z79.2 Long term (current) use of antibiotics | CPT/HCPCS: 73562 ×2; G0463 ==

== ENCOUNTER 2021-05-20 10:00 | Outpatient (CLI) | payer MEDICARE, OTHER | END 2021-05-20 23:59 | disposition home or self-care (01) | LOC: MSC 10:00 | PROVIDERS: ATTEND Internal Medicine | DX: M25.562 Pain in left knee (principal); M25.561 Pain in right knee; M54.9 Dorsalgia, unspecified; Z91.81 History of falling; M25.50 Pain in unspecified joint; H60.92 Unspecified otitis externa, left ear; R60.0 Localized edema; K59.00 Constipation, unspecified; I25.10 Atherosclerotic heart disease of native coronary artery without angina pectoris; Z98.61 Coronary angioplasty status; N18.9 Chronic kidney disease, unspecified; M79.2 Neuralgia and neuritis, unspecified; Z79.891 Long term (current) use of opiate analgesic; E03.9 Hypothyroidism, unspecified; Z79.890 Hormone replacement therapy; E78.5 Hyperlipidemia, unspecified; Z87.01 Personal history of pneumonia (recurrent); M81.0 Age-related osteoporosis without current pathological fracture; S82.891D Other fracture of right lower leg, subsequent encounter for closed fracture with routine healing; Z79.2 Long term (current) use of antibiotics; Z79.899 Other long term (current) drug therapy ==

== ENCOUNTER 2021-06-14 17:23 | Inpatient (IN) | payer MEDICARE, OTHER ==
[~2021-06-14] VITALS: Ht 149.9 cm; Wt 59.5 kg
[~2021-06-14 17:23] MED LIST changes: -ALBU2.5V38 IH; -ASPI-1169 PO; -CIPR500T5 PO; -METO25TA4 PO; -PANT40TA49 PO
--- NOTE | 2021-06-14 18:00 | NUR ---
PT CAME TO ER C/O ABDOMINAL PAIN X 3 DAYS. PAIN IS RATED 3/10 AND RADIATES BETWEEN THE UPPER AND LOWER ABDOMEN. ADMITS NAUSEA, SOB. DENIES VOMITING, CHEST PAIN. HX OF 4 HEART ATTACKS, HYSTERECTOMY. DENIES HX OF GERD. AAOX4
--- NOTE | 2021-06-14 18:10 | NUR ---
IV PLACED IN L AC 20G. LABS WERE COLLECTED AND SENT.
--- NOTE | 2021-06-14 18:12 | NUR ---
FECAL OCCULT BLOOD SAMPLE COLLECTED AND SENT TO LAB
--- NOTE | 2021-06-14 18:25 | NUR ---
MARLA HANCOCK AT PT'S BEDSIDE
[2021-06-14 18:57] LABS: BASOPHILS % (AUTO) 0.2 % (0.0-2.0); EOSINOPHILS % (AUTO) 1.3 % (0.0-6.0); HEMATOCRIT 35 % (33-45); LYMPHOCYTES # (AUTO) 1.7 K/uL (0.8-4.8); LYMPHOCYTES % (AUTO) 22.5 % (20.0-44.0); MEAN CORPUSCULAR HGB CONC 34 g/dl (31.0-36.0); MEAN CORPUSCULAR VOLUME 100 fL (82-100); MONOCYTES % (AUTO) 12.7 % (2.0-12.0); NEUTROPHILS # (AUTO) 4.9 K/uL (1.8-8.9); NEUTROPHILS % (AUTO) 63.3 % (43.0-81.0); PLATELET COUNT (AUTO) 238 K/uL (150-450); RED BLOOD CELL COUNT(AUTO) 3.52 MIL/uL (4.0-5.2); WHITE BLOOD COUNT (AUTO) 7.8 K/uL (4.3-11.0)
--- NOTE | 2021-06-14 18:59 | NUR ---
X RAY AT PT BEDSIDE
[2021-06-14] MEDS ORDERED: IV NS 0.9% 500 ML BAG IV ONE (19:00)
[2021-06-14] MEDS ORDERED: IOHEXOL-300 100 ML VIAL IV ONE (19:06)
[2021-06-14] MEDS ORDERED: IV NS 0.9% 250 ML IV ONE (19:06)
[2021-06-14 19:20] LABS: CALCIUM, SERUM 8.3 mg/dL (8.5-10.1); CREATININE 0.8 mg/dL (0.6-1.3); POTASSIUM 4.8 mmol/L (3.5-5.1)
--- NOTE | 2021-06-14 19:21 | NUR ---
URINE SAMPLE COLLECTED AND SENT TO LAB
[2021-06-14 19:32] LABS: ALBUMIN 3.1 g/dL (3.4-5.0); BILIRUBIN,DIRECT 0.1 mg/dL (0.0-0.2); BILIRUBIN,TOTAL 0.3 mg/dL (0.2-1.0); TOTAL PROTEIN, SERUM 7.3 g/dL (6.4-8.2)
[2021-06-14 19:40] LABS: BILIRUBIN,URINE Negative (NEGATIVE); COLOR,URINE YELLOW (YELLOW); LEUKOCYTE ESTERASE ,URINE Small (NEGATIVE); NITRITE, URINE Negative (NEGATIVE); PROTEIN,URINE Negative (NEGATIVE); UGLUCOSE Negative (NEGATIVE); UROBILINOGEN,URINE 0.2 EU/dL (0.2)
[2021-06-14 19:47] LABS: BACTERIA,URINE 1+ /HPF (None Seen); SQUAMOUS EPITHELIAL CELL,UR Few /HPF (None Seen)
--- NOTE | 2021-06-14 19:48 | NUR ---
MRSA SWAB COLLECTED AND SENT TO LAB. PATIENT'S BELONGINGS LIST DONE.
[2021-06-14 20:10] LABS: OCCULT BLOOD STOOL NEGATIVE (NEGATIVE)
--- NOTE | 2021-06-14 20:27 | NUR ---
PT TO CT VIA MINI
--- NOTE | 2021-06-14 20:27 | NUR ---
PT BEING TAKEN TO CT
--- NOTE | 2021-06-14 20:36 | NUR ---
PATIENT RETURNED FROM CT
[2021-06-14] MEDS ORDERED: HYDROCODONE/APAP 10/325MG TABLET ONE (21:17)
[2021-06-14] MEDS ORDERED: CEFTRIAXONE 1GM BAG (ER ONLY) 50 ML IV ONE (21:17)
[2021-06-14] MEDS ORDERED: MORPHINE SULFATE INJ 2 MG/ML DISP.SYRIN ONE (21:23)
[2021-06-14] MEDS ORDERED: CEFTRIAXONE 1 G in IV D5W 50 ML IV ONE (21:30)
[2021-06-14] MEDS ORDERED: HYDROCODONE/APAP 10/325MG TABLET PO ONE (21:30)
--- NOTE | 2021-06-14 21:30 | NUR ---
VERBAL ORDER FOR 2MG MORPHINE IVP PER MD RECIEVED AND CARRIED OUT 22G LF
--- NOTE | 2021-06-14 21:55 | NUR ---
PANEL PAGED PER DR BOLDEN.
--- NOTE | 2021-06-14 22:44 | NUR ---
REPORT GIVEN TO BOLA SCHULTZ
--- NOTE | 2021-06-14 22:51 | NUR ---
BUSINESS TAXES SPECIALIST ADMITTING/OPENING NOTES PATIENT ARRIVED TO THE UNIT AT APPROXIMATELY 2251. PATIENT WAS ORIENTED TO THE STAFF AND ROOM. PATIENT'S ALERT AND ORIENTED. PATIENT'S STABLE ON ROOM AIR. PATIENT'S IN NO CARDIAC DISTRESS NOTED. PATIENT HAS AN IV ACCESS IN HER LFA G#22. PATIENT'S IN NO ACUTE DISTRESS AT THIS TIME. SAFETY MEASURES IN PLACE: BED LOCKED, BED ALARM ON, SIDE RAILS UPX3, AND CALL LIGHT WITHIN REACH OF THE PATIENT. WILL CONTINUE TO MONITOR THE PATIENT.
--- NOTE | 2021-06-14 22:52 | NUR ---
PT WAS TRANSFERRED TO [address] ACLS
--- NOTE | 2021-06-14 22:59 | NUR ---
ENROLLMENT NURSE NOTES VERBAL REPORT GIVEN BY HÉCTOR SCHULTZ FROM THE ER.
[2021-06-14 23:30] VITALS: BP 128/84
[2021-06-14] MEDS ORDERED: MAG HYDROX/AL HYDROX/SIMETH 30 ML UDC PO PRN (23:30)
[2021-06-14] MEDS ORDERED: Z GUARD REMEDY 2 OZ OINT TP PRN (23:30)
[2021-06-14] MEDS ORDERED: MAGNESIUM HYDROXIDE 30 ML UDC PO PRN (23:30)
[2021-06-14] MEDS ORDERED: ONDANSETRON HCL/PF 4 MG/2 ML VIAL IVP PRN (23:30)
--- NOTE | 2021-06-14 23:51 | NUR ---
CONTROL AND RECOVERY COMBAT RESCUE ADMITTING/OPENING NOTES PATIENT ARRIVED TO THE UNIT AT APPROXIMATELY 2251. PATIENT WAS ORIENTED TO THE STAFF AND ROOM. PATIENT'S ALERT AND ORIENTED. PATIENT'S STABLE ON ROOM AIR. PATIENT'S IN NO CARDIAC DISTRESS NOTED. PATIENT HAS AN IV ACCESS IN HER LFA G#22. PATIENT'S IN NO ACUTE DISTRESS AT THIS TIME. SAFETY MEASURES IN PLACE: BED LOCKED, BED ALARM ON, SIDE RAILS UPX3, AND CALL LIGHT WITHIN REACH OF THE PATIENT. WILL CONTINUE TO MONITOR THE PATIENT
[2021-06-15] MEDS: ENOXAPARIN SODIUM 40 MG/0.4 ML DISP.SYRIN SQ SCH ×2 (00:09→21:25)
[2021-06-15 03:23] LABS: BASOPHILS % (AUTO) 0.3 % (0.0-2.0); EOSINOPHILS % (AUTO) 1.7 % (0.0-6.0); HEMATOCRIT 38 % (33-45); HEMOGLOBIN 12.5 g/dL (11.5-14.8); LYMPHOCYTES # (AUTO) 1.8 K/uL (0.8-4.8); LYMPHOCYTES % (AUTO) 22.7 % (20.0-44.0); MEAN CORPUSCULAR HGB CONC 33 g/dl (31.0-36.0); MEAN CORPUSCULAR VOLUME 100 fL (82-100); MONOCYTES # (AUTO) 1.2 K/uL (0.1-1.30); MONOCYTES % (AUTO) 14.8 % (2.0-12.0); NEUTROPHILS # (AUTO) 4.8 K/uL (1.8-8.9); NEUTROPHILS % (AUTO) 60.5 % (43.0-81.0); PLATELET COUNT (AUTO) 239 K/uL (150-450); RED BLOOD CELL COUNT(AUTO) 3.77 MIL/uL (4.0-5.2); WHITE BLOOD COUNT (AUTO) 7.9 K/uL (4.3-11.0)
[2021-06-15 03:48] LABS: ALANINE AMINOTRANSFERASE 40 U/L (12-78); ALBUMIN 2.9 g/dL (3.4-5.0); ALKALINE PHOSPHATASE 134 U/L (46-116); ASPARTATE AMINOTRANSFERASE 27 U/L (15-37); BILIRUBIN,TOTAL 0.3 mg/dL (0.2-1.0); CALCIUM, SERUM 8.1 mg/dL (8.5-10.1); CARBON DIOXIDE 26 mmol/L (21-32); CHLORIDE 98 mmol/L (98-107); CREATININE 0.7 mg/dL (0.6-1.3); GLUCOSE 111 mg/dL (74-106); MAGNESIUM 1.6 mg/dL (1.8-2.4); PHOSPHORUS 2.5 mg/dL (2.5-4.9); SODIUM SERUM 134 mmol/L (136-145); TOTAL PROTEIN, SERUM 6.8 g/dL (6.4-8.2); UREA NITROGEN, BLOOD 12 mg/dL (7-18)
[2021-06-15 03:50] LABS: CHOLESTEROL 147 mg/dL (<200); HDL CHOLESTEROL 67 mg/dL (40-60); LDL 66 mg/dL (0-99); THYROID STIMULATING HORMONE 1.944 uIU/mL (0.358-3.74); TRIGLYCERIDES 67 mg/dL (30-150)
[2021-06-15 04:00] VITALS: BP 126/72
[2021-06-15] MEDS: HYDROCODONE/APAP 5/325MG TABLET PO PRN ×3 (04:53→13:47)
--- NOTE | 2021-06-15 04:53 | NUR ---
AIRPORT SCREENER NOTES PATIENT CURRENT C/O 7/10 PAIN. PATIENT WAS GIVEN 1 TABLET OF NORCO (5/325MG) PO. WILL REASSESS THE PAIN AT 0553.
--- NOTE | 2021-06-15 07:59 | NUR ---
RN OPENING NOTE PATIENT AWAKE IN BED RESTING. A/O X3. NO S/S OF PAIN NOTED AT THIS TIME. ON ROOM AIR, NO DISTRESS OR SHORTNESS OF BREATH NOTED. 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 NO IV ACCESS AT THE MOMENT, PATIENT REMOVED IV. FALL AND SAFETY MEASURES IN PLACE, BED ALARM ON, BED IN LOW AND LOCK POSITION, CALL LIGHT AND TABLE WITHIN EASY REACH, SIDE RAILS UP X2. WILL CONTINUE TO MONITOR.
[2021-06-15 08:00] VITALS: BP 145/79
[2021-06-15] MEDS ORDERED: ALBU2.5V38 IH (08:20)
[2021-06-15] MEDS ORDERED: PANT40TA49 PO (08:20)
[2021-06-15] MEDS ORDERED: METO25TA4 PO (08:20)
[2021-06-15] MEDS: PANTOPRAZOLE 40 MG TABLET.DR PO SCH (09:14)
[2021-06-15] MEDS: ASPIRIN EC 81 MG TABLET.DR PO SCH (09:14)
[2021-06-15] MEDS ORDERED: PANTOPRAZOLE 40 MG TABLET.DR PO SCH (11:00)
[2021-06-15] MEDS ORDERED: Medication Not On Formulary EA (Denosumab (Prolia) 60 MG) SQ SCH (11:00)
[2021-06-15] MEDS ORDERED: HYDROCODONE/APAP 10/325MG TABLET PO PRN (11:00)
[2021-06-15] MEDS: METOPROLOL SUCCINATE 25 MG TAB.SR.24H PO SCH (11:00)
[2021-06-15] MEDS ORDERED: POLYVINYL ALCOHOL 15 ML BOTTLE OP PRN (11:30)
[2021-06-15 12:00] VITALS: BP 102/69
[2021-06-15] MEDS: CHOLECALCIFEROL 1,000 UNIT TABLET (VIT D3) PO SCH (12:00)
[2021-06-15] MEDS: Magnesium 1GM/D5W 100ML PREMIX 100 ML IV SCH ×2 (12:00→13:00)
[2021-06-15] MEDS: LEVOTHYROXINE SODIUM 25 MCG TABLET PO SCH (12:00)
[2021-06-15] MEDS ORDERED: IV NS 0.9% 500 ML IV ONE (12:00)
[2021-06-15] MEDS: LORATADINE 10 MG TABLET PO SCH (12:01)
[2021-06-15] MEDS: CLOPIDOGREL BISULFATE 75 MG TABLET PO SCH (12:01)
[2021-06-15] MEDS: ACETAMINOPHEN 325 MG TABLET PO PRN (15:36)
[2021-06-15 16:00] VITALS: BP 111/72
[2021-06-15] MEDS: ALBUTEROL FS 2.5 MG/3 ML VIAL.NEB IH SCH ×2 (16:09→23:20)
--- NOTE | 2021-06-15 16:57 | NUR ---
RN NOTE CONTACTED FAMILY ABOUT [facility] MED. PHARMACY DOES NOT HAVE MED IN STOCK. INSTRUCTED FAMILY TO ARRANGE APPT FOR [facility] SHOT AFTER D/C. WILL CONTINUE TO MONITOR.
--- NOTE | 2021-06-15 17:18 | NUR ---
RN NOTE MULTIPLE PIV ATTEMPTS UNSUCCESSFUL. NOTIFIED MD FOR MIDLINE INSERTION. OKAYED BY MD TO ORDER MIDLINE AT 1200. MIDLINE NURSE NOT PRESENT, NOTIFIED NURSING VISITOR SERVICE ASSISTANT YUNIOR. PER VISITOR SERVICE ASSISTANT, MIDLINE NURSE IS ON HER WAY. MIDLINE SUPPLIES AT BEDSIDE. IV MEDS FROM 1200 TO PRESENT NOT GIVEN D/T NO IV ACCESS. MD AWARE. WILL CONTINUE TO MONITOR.
[2021-06-15] MEDS: HYDROCODONE/APAP 10/325MG TABLET PO PRN (18:45)
--- NOTE | 2021-06-15 19:06 | NUR ---
RN CLOSING NOTE PATIENT AWAKE IN BED RESTING. A/O X3. PAIN LEVEL 7/10, PAIN MEDICATION WAS GIVEN. ON ROOM AIR, NO DISTRESS OR SHORTNESS OF BREATH NOTED. 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 IV ACCESS RIGHT ARM, MIDLINE #18G. FALL AND SAFETY MEASURES IN PLACE, BED ALARM ON, BED IN LOW AND LOCK POSITION, CALL LIGHT AND TABLE WITHIN EASY REACH, SIDE RAILS UP X2. WILL ENDORSE TO SWIMMING COACH OR INSTRUCTOR..
--- NOTE | 2021-06-15 19:20 | NUR ---
RN NOTE RECEIVED PATIENT IN BED RESTING ALERT ORIENTED X3 VERBALLY RESPONSIVE ON ROOM AIR O2:97% IV SITE IS ON RIGHT UPPER ARM MID LINE INTACT PATENT,INCONTINENT TO BOWEL/BLADDER SAFETY MEASURE IMPLEMENT HEAD OF THE BED ELEVATED,BED IN LOW POSITION AND LOCKED, CALL LIGHT WITHIN REACH,CONTINUE TO MONITOR.
[2021-06-15 20:00] VITALS: BP 110/65
[2021-06-15] MEDS: CEFTRIAXONE 1 G in IV D5W 50 ML IV SCH (20:52)
[2021-06-15] MEDS: GABAPENTIN 400 MG CAPSULE PO SCH (21:39)
[2021-06-16] VITALS: BP 111/62
[2021-06-16 04:00] VITALS: BP 119/68
--- NOTE | 2021-06-16 06:51 | NUR ---
RN NOTE PATIENT REMAINS ON ALERT ORIENTED X3 VERBALLY RESPONSIVE ON ROOM AIR NO SOB NOT ACUTE DISTRESS NOTED ALL DUE MEDS GIVEN MD ORDERED KEPT CLEAN AND DRY ALL THE TIME ALL NEEDS MET ENDORSE NEXT COMING SHIFT FOR CONTINUATION OF CARE
[2021-06-16 07:26] LABS: BASOPHILS % (AUTO) 0.5 % (0.0-2.0); EOSINOPHILS % (AUTO) 4.3 % (0.0-6.0); HEMATOCRIT 34 % (33-45); HEMOGLOBIN 11.4 g/dL (11.5-14.8); LYMPHOCYTES # (AUTO) 1.8 K/uL (0.8-4.8); LYMPHOCYTES % (AUTO) 27.3 % (20.0-44.0); MEAN CORPUSCULAR HGB CONC 34 g/dl (31.0-36.0); MEAN CORPUSCULAR VOLUME 99 fL (82-100); NEUTROPHILS # (AUTO) 3.4 K/uL (1.8-8.9); NEUTROPHILS % (AUTO) 52.9 % (43.0-81.0); PLATELET COUNT (AUTO) 250 K/uL (150-450); RED BLOOD CELL COUNT(AUTO) 3.39 MIL/uL (4.0-5.2); WHITE BLOOD COUNT (AUTO) 6.5 K/uL (4.3-11.0)
[2021-06-16] MEDS: ALBUTEROL FS 2.5 MG/3 ML VIAL.NEB IH SCH ×3 (07:35→23:41)
--- NOTE | 2021-06-16 07:54 | NUR ---
RN NOTES PT IS ALERT AND ORIENTED X3, ABLE TO ANSWER VERBALLY, NO RESPIRATORY DISTRESS NOTED, BREATHING IS EVEN AND NONLABORED ON ROOM AIR, CALL LIGHT IS WITHIN REACH, BED IN LOWEST POSITION, SAFETY LOCK IS ON.
[2021-06-16 08:00] VITALS: BP 94/55
[2021-06-16] MEDS ORDERED: Magnesium 1GM/D5W 100ML PREMIX 100 ML IV SCH (08:00)
[2021-06-16 08:04] LABS: PHOSPHORUS 2.9 mg/dL (2.5-4.9); POTASSIUM 4.2 mmol/L (3.5-5.1)
[2021-06-16] MEDS: METOPROLOL SUCCINATE 25 MG TAB.SR.24H PO SCH (09:00)
[2021-06-16] MEDS: ASCORBIC ACID 500 MG TABLET PO SCH (10:01)
[2021-06-16] MEDS: CLOPIDOGREL BISULFATE 75 MG TABLET PO SCH (10:01)
[2021-06-16] MEDS: PANTOPRAZOLE 40 MG TABLET.DR PO SCH (10:01)
[2021-06-16] MEDS: LEVOTHYROXINE SODIUM 25 MCG TABLET PO SCH (10:01)
[2021-06-16] MEDS: LORATADINE 10 MG TABLET PO SCH (10:01)
[2021-06-16] MEDS: CHOLECALCIFEROL 1,000 UNIT TABLET (VIT D3) PO SCH (10:02)
[2021-06-16] MEDS: ASPIRIN EC 81 MG TABLET.DR PO SCH (10:03)
[2021-06-16] MEDS: MULTIPLE VIT (LYCOPENE/FA/MV,CA,IRON,MIN/LUT)1 TAB PO SCH (10:05)
[2021-06-16 10:52] VITALS: BP 94/55
[2021-06-16 12:00] VITALS: BP 108/68
[2021-06-16] MEDS: HYDROCODONE/APAP 10/325MG TABLET PO PRN (12:02)
--- NOTE | 2021-06-16 17:10 | NUR ---
Around 17:08pm, patient was noted to have blood pressure of 57/38 and heart rate 97, foot part of bed elevated, head part of bed was lowered, no change in level of consciousness, able to make needs known, can follow simple commands, no headache, no dizziness, no c/o lightheadedness. After IV fluid bolus (0.9NS 500ml bolus) was done blood pressure went up to 81/50 and heart rate of 87, no apparent distress noted, MD made aware with new orders to give another IV fluid bolus (0.9NS 500ml bolus), orders noted and carried out. Frequent visual checks rendered, blood pressure was on close monitoring. Around 1900, patient was noted to have blood pressure 89/57 and heart rate 88, patient was able to eat a liitle bit of her soup from dinner time with assistance from family and ate some pudding too, no change in level of consciousness, can follow simple commands, able to make needs known, no dizziness, no c/o lightheadedness, no headache, will endorse to next shift for continuity of care.
[2021-06-16] MEDS ORDERED: IV NS 0.9% 500 ML BAG IV ONE ×2 (17:20→18:10)
[2021-06-16 19:02] LABS: BASOPHILS % (AUTO) 0.4 % (0.0-2.0); EOSINOPHILS % (AUTO) 2.9 % (0.0-6.0); HEMATOCRIT 33 % (33-45); HEMOGLOBIN 10.8 g/dL (11.5-14.8); LYMPHOCYTES # (AUTO) 1.7 K/uL (0.8-4.8); LYMPHOCYTES % (AUTO) 26.9 % (20.0-44.0); MEAN CORPUSCULAR HGB CONC 33 g/dl (31.0-36.0); MEAN CORPUSCULAR VOLUME 101 fL (82-100); MONOCYTES % (AUTO) 15.4 % (2.0-12.0); NEUTROPHILS # (AUTO) 3.5 K/uL (1.8-8.9); NEUTROPHILS % (AUTO) 54.4 % (43.0-81.0); PLATELET COUNT (AUTO) 225 K/uL (150-450); RED BLOOD CELL COUNT(AUTO) 3.25 MIL/uL (4.0-5.2); WHITE BLOOD COUNT (AUTO) 6.5 K/uL (4.3-11.0)
[2021-06-16 19:07] LABS: CARBON DIOXIDE 27 mmol/L (21-32); CHLORIDE 102 mmol/L (98-107); GLUCOSE 110 mg/dL (74-106); POTASSIUM 4.1 mmol/L (3.5-5.1); SODIUM SERUM 136 mmol/L (136-145); UREA NITROGEN, BLOOD 19 mg/dL (7-18)
--- NOTE | 2021-06-16 19:17 | NUR ---
RN CLOSING NOTES PATIENT REMAINS ON ALERT ORIENTED X3, VERBALLY RESPONSIVE ON ROOM AIR, NO SOB, NO ACUTE DISTRESS NOTED, ALL DUE MEDS GIVEN MD ORDERED, KEPT CLEAN AND DRY ALL THE TIME ALL NEEDS MET ENDORSE NEXT COMING SHIFT FOR CONTINUATION OF CARE.
--- NOTE | 2021-06-16 19:30 | NUR ---
PARTS PROFESSIONAL OPENING PATIENT IN BED. A/OX3-4. ABLE TO MAKE NEEDS KNOWN. NO S/S OF APPARENT DISTRESS ON ROOM AIR. DENIES PAIN AT THIS TIME. TELE READING SR 83. NO FLUIDS RUNNING AT THIS TIME. SAFETY IN PLACE. NEEDS ATTENDED. WILL FOLLOW THROUGH CARE PLAN.
[2021-06-16 20:00] VITALS: BP 94/64
[2021-06-16 20:08] LABS: BAND % (MANUAL) 4 % (0.0-5.0); EOSINOPHILS % (MANUAL) 5 % (0-4); LYMPHOCYTES % (MANUAL) 30 % (16-48); MONOCYTES % (MANUAL) 17 % (0-11.0); NEUTROPHILS % (MANUAL) 44 (42-76)
[2021-06-16] MEDS: CEFTRIAXONE 1 G in IV D5W 50 ML IV SCH (20:32)
[2021-06-16] MEDS: ENOXAPARIN SODIUM 40 MG/0.4 ML DISP.SYRIN SQ SCH (21:17)
[2021-06-16] MEDS: GABAPENTIN 400 MG CAPSULE PO SCH (21:18)
[2021-06-17] VITALS: BP 99/59
[2021-06-17] MEDS: HYDROCODONE/APAP 10/325MG TABLET PO PRN ×2 (00:14→08:39)
[2021-06-17 04:00] VITALS: BP 99/54
--- NOTE | 2021-06-17 06:52 | NUR ---
SANITARY CHEMIST CLOSING NOTE PATIENT IN ROOM, A/OX3-4. TIMES OF CONFUSION AND FORGETFULNESS. PATIENT NOT EXHIBITING ANY S/S OF APPARENT DISTRESS. PAIN MANAGED WITH MEDICATION AND NON-PHARMACOLOGICAL INTERVENTIONS. TELE MONITOR READING NSR IN THE 76. NO FLUIDS RUNNING AT THIS TIME. ALL NEEDS ATTENDED. ALL SCHEDULED MEDICATIONS ADMINISTERED. SAFETY KEPT IN PLACE THE WHOLE SHIFT. NO SIGNIFICANT CHANGE SINCE LAST ENDORSEMENT. WILL ENDORSED TO MORNING SHIFT RN FOR CONTINUITY OF CARE.
[2021-06-17] MEDS: ALBUTEROL FS 2.5 MG/3 ML VIAL.NEB IH SCH (07:40)
--- NOTE | 2021-06-17 07:46 | NUR ---
RN OPENING NOTES Patient seen comfortably lying in bed, no apparent distress noted, respirations even and unlabored, no SOB, no grimacing. Call light left within reach, safety precautions in place, brakes locked, side rails up X 2, will monitor closely for any changes.
[2021-06-17 08:00] VITALS: BP 102/72
[2021-06-17] MEDS: MULTIPLE VIT (LYCOPENE/FA/MV,CA,IRON,MIN/LUT)1 TAB PO SCH (08:37)
[2021-06-17] MEDS: CHOLECALCIFEROL 1,000 UNIT TABLET (VIT D3) PO SCH (08:37)
[2021-06-17] MEDS: LEVOTHYROXINE SODIUM 25 MCG TABLET PO SCH (08:37)
[2021-06-17] MEDS: PANTOPRAZOLE 40 MG TABLET.DR PO SCH (08:38)
[2021-06-17] MEDS: CLOPIDOGREL BISULFATE 75 MG TABLET PO SCH (08:38)
[2021-06-17] MEDS: ASPIRIN EC 81 MG TABLET.DR PO SCH (08:38)
[2021-06-17] MEDS: ASCORBIC ACID 500 MG TABLET PO SCH (08:38)
[2021-06-17] MEDS: LORATADINE 10 MG TABLET PO SCH (08:38)
[2021-06-17 09:00] VITALS: BP 102/58
[2021-06-17] MEDS: METOPROLOL SUCCINATE 25 MG TAB.SR.24H PO SCH (09:00)
[2021-06-17] MEDS ORDERED: ATORVASTATIN 40 MG TABLET PO SCH (09:00)
[2021-06-17] MEDS: ACETAMINOPHEN 325 MG TABLET PO PRN (12:17)
[2021-06-17] MEDS ORDERED: CIPR500T5 PO (12:41)
[2021-06-17] MEDS ORDERED: ASPI-1169 PO (12:41)
--- NOTE | 2021-06-17 15:47 | NUR ---
Patient to be discharged home today, no apparent distress noted, no shortness of breath, respirations even and unlabored, pain medication given per MD order as needed when non pharmacological measures ineffective. Patient made aware of the situation, she signed all discharge paper works, all belongings taken, inventory list signed by patient. Health teaching provided, verbalized understanding and gratitude. Skin assessment done prior to discharge, skin intact, warm to touch, no pallor or cyanosis noted. Midline on the right upper arm removed prior to discharge, complete and intact, no excessive bleeding noted, site covered with dry dressing. Name wristband removed prior to discharge, surgical mask provided for patient to use. FULL TIME STAFF INTERPRETER assisted patient going to the hospital parking lot via wheelchair, left unit at 15:45am , stable condition, exit care documents handed to patient.
== END 2021-06-17 15:45 | disposition home or self-care (01) | DRG 280 ==
LOC: ER 17:42 → TELE 22:03 → MED 06-17 09:48
PROVIDERS: ADMIT Hospitalist; ATTEND Student in an Organized Health Care Education/Training Program
PROC: 05HB33Z Insertion of Infusion Device into Right Basilic Vein, Percutaneous Approach (ICD-10-PCS; principal; 2021-06-15)
DX: I21.A1 Myocardial infarction type 2 (principal); E43 Unspecified severe protein-calorie malnutrition; N39.0 Urinary tract infection, site not specified; E87.1 Hypo-osmolality and hyponatremia; I11.0 Hypertensive heart disease with heart failure; I50.9 Heart failure, unspecified; M81.0 Age-related osteoporosis without current pathological fracture; Z87.311 Personal history of (healed) other pathological fracture; Z20.822 Contact with and (suspected) exposure to COVID-19; E86.1 Hypovolemia; I25.10 Atherosclerotic heart disease of native coronary artery without angina pectoris; Z95.5 Presence of coronary angioplasty implant and graft; E03.9 Hypothyroidism, unspecified; M06.9 Rheumatoid arthritis, unspecified; Z86.73 Personal history of transient ischemic attack (TIA), and cerebral infarction without residual deficits; Z90.710 Acquired absence of both cervix and uterus; Z90.49 Acquired absence of other specified parts of digestive tract; Z87.09 Personal history of other diseases of the respiratory system; E83.42 Hypomagnesemia; E78.5 Hyperlipidemia, unspecified; K57.30 Diverticulosis of large intestine without perforation or abscess without bleeding; B96.20 Unspecified Escherichia coli [E. coli] as the cause of diseases classified elsewhere
CPT/HCPCS: 36410; 36415; 71045-TC; 80048-TC; 80053-TC; 80061-TC; 80076-TC; 81001; 82272-TC; 83605-TC; 83690-TC; 83735-TC; 84100-TC; 84443-TC; 84484-TC; 85025-TC; 85730-TC; 87081-TC; 87086-TC; 87186-TC; 93307-TC; 94799-TC; 97112-TC; 97116-TC; 97530-TC; C9803; G0378; J0696; J1650; J2270; J3475; J7030; J7040; J7050; J7060; Q9967

== ENCOUNTER → 2021-06-14 | Outpatient (CLI) | payer MEDICARE, OTHER ==
[~2021-06-14] MED LIST changes: +ALBU2.5V38 IH; +ASPI-1169 PO; +CIPR500T5 PO; +METO25TA4 PO; +PANT40TA49 PO
== END | disposition home or self-care (01) ==
LOC: MSC 15:45
PROVIDERS: ATTEND Internal Medicine
DX: R10.32 Left lower quadrant pain (principal); R11.0 Nausea; M25.562 Pain in left knee; M25.561 Pain in right knee; Z91.81 History of falling; H60.92 Unspecified otitis externa, left ear; K59.00 Constipation, unspecified; N18.9 Chronic kidney disease, unspecified; I25.10 Atherosclerotic heart disease of native coronary artery without angina pectoris; Z98.61 Coronary angioplasty status; G62.9 Polyneuropathy, unspecified; E03.9 Hypothyroidism, unspecified; Z79.890 Hormone replacement therapy; E78.5 Hyperlipidemia, unspecified; Z87.01 Personal history of pneumonia (recurrent); M81.0 Age-related osteoporosis without current pathological fracture; S82.891D Other fracture of right lower leg, subsequent encounter for closed fracture with routine healing; Z79.899 Other long term (current) drug therapy

== ENCOUNTER → 2021-06-24 | Outpatient (CLI) | payer MEDICARE, OTHER ==
[~2021-06-24] MED LIST changes: +ALBU2.5V38 IH; +ASPI-1169 PO; +CIPR500T5 PO; +METO25TA4 PO; +PANT40TA49 PO
== END | disposition home or self-care (01) ==
LOC: MSC 14:00
PROVIDERS: ATTEND Internal Medicine
DX: R10.9 Unspecified abdominal pain (principal); M25.562 Pain in left knee; M25.561 Pain in right knee; Z91.81 History of falling; H60.322 Hemorrhagic otitis externa, left ear; K59.00 Constipation, unspecified; N18.9 Chronic kidney disease, unspecified; I25.10 Atherosclerotic heart disease of native coronary artery without angina pectoris; Z98.61 Coronary angioplasty status; E03.9 Hypothyroidism, unspecified; E78.5 Hyperlipidemia, unspecified; G62.9 Polyneuropathy, unspecified; Z87.01 Personal history of pneumonia (recurrent); M81.0 Age-related osteoporosis without current pathological fracture; S82.891D Other fracture of right lower leg, subsequent encounter for closed fracture with routine healing; Z79.899 Other long term (current) drug therapy

== ENCOUNTER 2022-01-04 10:29 | Outpatient (CLI) | payer MEDICARE, OTHER ==
[~2022-01-04 10:29] MED LIST changes: -ALBU8.5H8 IH; -CARV6.252 PO; -SODI1TAB66 PO; -TOBR5DRO OP
[2022-01-04 12:26] LABS: BASOPHILS % (AUTO) 0.3 % (0.0-2.0); EOSINOPHILS % (AUTO) 2.7 % (0.0-6.0); HEMATOCRIT 39 % (33-45); HEMOGLOBIN 12.9 g/dL (11.5-14.8); LYMPHOCYTES # (AUTO) 2.1 K/uL (0.8-4.8); LYMPHOCYTES % (AUTO) 33.1 % (20.0-44.0); MEAN CORPUSCULAR HGB CONC 33 g/dl (31.0-36.0); MEAN CORPUSCULAR VOLUME 99 fL (82-100); MONOCYTES # (AUTO) 0.5 K/uL (0.1-1.30); MONOCYTES % (AUTO) 8.7 % (2.0-12.0); NEUTROPHILS # (AUTO) 3.5 K/uL (1.8-8.9); NEUTROPHILS % (AUTO) 55.2 % (43.0-81.0); PLATELET COUNT (AUTO) 179 K/uL (150-450); RED BLOOD CELL COUNT(AUTO) 3.92 MIL/uL (4.0-5.2); WHITE BLOOD COUNT (AUTO) 6.2 K/uL (4.3-11.0)
[2022-01-04 12:46] LABS: C-REACTIVE PROTEIN < 0.2 mg/dL (0.0-0.9)
[2022-01-04 12:53] LABS: ALANINE AMINOTRANSFERASE 35 U/L (12-78); ALBUMIN 3.7 g/dL (3.4-5.0); ALKALINE PHOSPHATASE 59 U/L (46-116); ASPARTATE AMINOTRANSFERASE 27 U/L (15-37); BILIRUBIN,TOTAL 0.3 mg/dL (0.2-1.0); CARBON DIOXIDE 30 mmol/L (21-32); CHLORIDE 102 mmol/L (98-107); CREATININE 0.9 mg/dL (0.6-1.3); GLUCOSE 97 mg/dL (74-106); PHOSPHORUS 4.5 mg/dL (2.5-4.9); POTASSIUM 4.8 mmol/L (3.5-5.1); SODIUM SERUM 137 mmol/L (136-145); TOTAL PROTEIN, SERUM 7.3 g/dL (6.4-8.2); UREA NITROGEN, BLOOD 26 mg/dL (7-18)
== END 2022-01-04 23:59 | disposition home or self-care (01) ==
LOC: MSC 10:29
PROVIDERS: ATTEND Internal Medicine
DX: R07.82 Intercostal pain (principal); M25.562 Pain in left knee; M25.561 Pain in right knee; Z91.81 History of falling; H60.322 Hemorrhagic otitis externa, left ear; K59.00 Constipation, unspecified; N18.9 Chronic kidney disease, unspecified; I25.10 Atherosclerotic heart disease of native coronary artery without angina pectoris; Z98.61 Coronary angioplasty status; E03.9 Hypothyroidism, unspecified; M79.2 Neuralgia and neuritis, unspecified; Z79.891 Long term (current) use of opiate analgesic; E78.5 Hyperlipidemia, unspecified; Z87.01 Personal history of pneumonia (recurrent); M81.0 Age-related osteoporosis without current pathological fracture; S82.891D Other fracture of right lower leg, subsequent encounter for closed fracture with routine healing; Z79.899 Other long term (current) drug therapy
CPT/HCPCS: 36415; 71100; 80053; 83036; 83735; 84100; 85025; 85652; 86140; G0463

== ENCOUNTER 2022-01-19 22:50 | Inpatient (IN) | payer MEDICARE, OTHER ==
[~2022-01-19] VITALS: Ht 149.9 cm; Wt 51.7 kg
--- NOTE | 2022-01-19 23:06 | NUR ---
BIBRA 102 C/O ABD PAIN NO RAD STARTED THIS EVENING AT 2200. PT A/OX4. TOLERATING R/A WELL WITH NO SOB; RESP EVEN AND NON LABORED. CONNECTED PT TO POX AND MONITOR. SAFETY MEASURES IN PLACE.
--- NOTE | 2022-01-19 23:08 | NUR ---
PT NOTED WITH FORGETFULNESS & CONFUSION MORE THAN USUAL
--- NOTE | 2022-01-19 23:18 | NUR ---
mohs surgeon at pt's bedside
[2022-01-19] MEDS ORDERED: ACETAMINOPHEN ES 500 MG TABLET ONE (23:20)
[2022-01-19] MEDS ORDERED: MORPHINE SULFATE INJ 2 MG/ML DISP.SYRIN ONE (23:20)
[2022-01-19] MEDS ORDERED: ONDANSETRON HCL/PF 4 MG/2 ML VIAL ONE (23:20)
[2022-01-19] MEDS ORDERED: MORPHINE SULFATE INJ 2 MG/ML DISP.SYRIN IV ONE (23:30)
[2022-01-19] MEDS ORDERED: IV NS 0.9% 500 ML BAG IV ONE (23:30)
[2022-01-19] MEDS ORDERED: ACETAMINOPHEN 325 MG TABLET PO ONE (23:30)
[2022-01-19] MEDS ORDERED: ONDANSETRON HCL/PF 4 MG/2 ML VIAL IVP ONE (23:30)
--- NOTE | 2022-01-19 23:45 | NUR ---
LFA #22G S/L; IVF INFUSING
--- NOTE | 2022-01-19 23:50 | NUR ---
COVID ANTIGEN SWAB COLLECTED AND SENT TO LAB
--- NOTE | 2022-01-19 23:52 | NUR ---
PT TAKEN TO CT VIA MINI
[2022-01-19 23:53] LABS: BASOPHILS % (AUTO) 0.2 % (0.0-2.0); HEMATOCRIT 38 % (33-45); HEMOGLOBIN 12.5 g/dL (11.5-14.8); LYMPHOCYTES # (AUTO) 0.9 K/uL (0.8-4.8); LYMPHOCYTES % (AUTO) 8.6 % (20.0-44.0); MEAN CORPUSCULAR HGB CONC 33 g/dl (31.0-36.0); MEAN CORPUSCULAR VOLUME 99 fL (82-100); MONOCYTES # (AUTO) 0.4 K/uL (0.1-1.30); MONOCYTES % (AUTO) 3.6 % (2.0-12.0); NEUTROPHILS # (AUTO) 8.9 K/uL (1.8-8.9); NEUTROPHILS % (AUTO) 86.6 % (43.0-81.0); PLATELET COUNT (AUTO) 243 K/uL (150-450); RED BLOOD CELL COUNT(AUTO) 3.87 MIL/uL (4.0-5.2); WHITE BLOOD COUNT (AUTO) 10.3 K/uL (4.3-11.0)
--- NOTE | 2022-01-20 00:07 | NUR ---
PT RETURNED TO ER BED [address]
[2022-01-20 00:27] LABS: CALCIUM, SERUM 9.4 mg/dL (8.5-10.1); CARBON DIOXIDE 27 mmol/L (21-32); CHLORIDE 102 mmol/L (98-107); CREATININE 0.8 mg/dL (0.6-1.3); GLUCOSE 127 mg/dL (74-106); POTASSIUM 4.2 mmol/L (3.5-5.1); SODIUM SERUM 136 mmol/L (136-145); UREA NITROGEN, BLOOD 23 mg/dL (7-18)
[2022-01-20 00:33] LABS: ALANINE AMINOTRANSFERASE 52 U/L (12-78); ALBUMIN 3.6 g/dL (3.4-5.0); ALKALINE PHOSPHATASE 66 U/L (46-116); ASPARTATE AMINOTRANSFERASE 57 U/L (15-37); BILIRUBIN,DIRECT 0.1 mg/dL (0.0-0.2); BILIRUBIN,TOTAL 0.4 mg/dL (0.2-1.0); LIPASE 89 U/L (73-393); TOTAL PROTEIN, SERUM 7.3 g/dL (6.4-8.2)
--- NOTE | 2022-01-20 00:35 | NUR ---
TOOK PT TO RESTROOM; NO URINE OUTPUT AT THIS TIME. WILL TRY AGAIN LATER
--- NOTE | 2022-01-20 01:00 | NUR ---
URINE COLLECTED AND SENT TO LAB
[2022-01-20 01:47] LABS: BILIRUBIN,URINE NEGATIVE (NEGATIVE); COLOR,URINE YELLOW (YELLOW); LEUKOCYTE ESTERASE ,URINE MODERATE (NEGATIVE); NITRITE, URINE POSITIVE (NEGATIVE); PROTEIN,URINE NEGATIVE (NEGATIVE); UGLUCOSE NEGATIVE (NEGATIVE); UROBILINOGEN,URINE 0.2 EU/dL (0.2)
[2022-01-20] MEDS ORDERED: LEVOFLOXACIN 500 MG /D5W 100ML 500 MG/100 ML PIGGYBACK IV ONE (02:00)
[2022-01-20] MEDS ORDERED: LEVOFLOXACIN 500 MG /D5W 100ML 100 ML IV ONE (02:01)
[2022-01-20 02:04] LABS: BACTERIA,URINE Few /HPF (None Seen); RBC,URINE 0-2 /HPF (0-2); SQUAMOUS EPITHELIAL CELL,UR Few /HPF (None Seen); WBC,URINE 21-50 /HPF (0-3)
[2022-01-20] MEDS ORDERED: MAG HYDROX/AL HYDROX/SIMETH 30 ML UDC PO PRN (02:30)
[2022-01-20] MEDS ORDERED: ONDANSETRON HCL/PF 4 MG/2 ML VIAL IVP PRN (02:30)
[2022-01-20] MEDS ORDERED: ACETAMINOPHEN 325 MG TABLET PO PRN (02:30)
[2022-01-20] MEDS ORDERED: TEMAZEPAM 15 MG CAPSULE PO PRN (02:30)
[2022-01-20] MEDS ORDERED: MAGNESIUM HYDROXIDE 30 ML UDC PO PRN (02:30)
[2022-01-20] MEDS ORDERED: Z GUARD REMEDY 4 OZ OINT TP PRN (02:30)
[2022-01-20] MEDS ORDERED: ENOXAPARIN SODIUM 30 MG/0.3 ML DISP.SYRIN ONE (04:18)
[2022-01-20] MEDS: ENOXAPARIN SODIUM 30 MG/0.3 ML DISP.SYRIN SQ SCH ×2 (04:25→22:25)
[2022-01-20] MEDS: IV NS 0.9% 1,000 ML IV PRN ×2 (04:27→09:51)
--- NOTE | 2022-01-20 04:28 | NUR ---
IVF LFA #22G NS @ 75ML/HR PRN; TOLERATING WELL
[2022-01-20 04:35] VITALS: BP 105/74
--- NOTE | 2022-01-20 07:57 | NUR ---
PROVIDED WARM BLANKET FOR COMFORT
[2022-01-20] MEDS ORDERED: PANTOPRAZOLE 40 MG TABLET.DR PO ONE (08:20)
[2022-01-20] MEDS: PANTOPRAZOLE 40 MG TABLET.DR PO SCH (08:25)
--- NOTE | 2022-01-20 08:52 | NUR ---
GOT BED 307-2
--- NOTE | 2022-01-20 08:57 | NUR ---
ATTEMPTED TO GIVE REPORT TO LC SCHULTZ, WILL CALL BACK FOR REPORT
--- NOTE | 2022-01-20 09:10 | NUR ---
REPORT GIVEN TO LC SCHULTZ FOR RAMANA
--- NOTE | 2022-01-20 09:15 | NUR ---
TRANSFERRED TO BED 307 IN STABLE CONDITION
--- NOTE | 2022-01-20 10:00 | NUR ---
RN NOTE PATIENT RECEIVED, ON 3L O2 NC WITH NO SIGNS OF LABORED BREATHING, VITAL SIGNS STABLE. LEFT FA 20G IV IN PLACE RUNNING NS AT 75CC/HR.
[2022-01-20 10:08] VITALS: BP 130/53
--- NOTE | 2022-01-20 11:03 | NUR ---
RN NOTE PATIENT STABLE ON RA.
[2022-01-20] MEDS: HYDROCODONE/APAP 5/325MG TABLET PO PRN ×2 (13:08→19:56)
--- NOTE | 2022-01-20 13:10 | NUR ---
RN NOTE PT COMPLAINING OF PAIN IN ABD AND LEGS. NORCO PO GIVEN. BP STABLE.
[2022-01-20 16:00] VITALS: BP 111/71
--- NOTE | 2022-01-20 19:45 | NUR ---
MS RN OPENING NOTES RECEIVED PATIENT RESTING IN BED; AWAKE, ALERT AND ORIENTED X4. WITH OXYGEN INHALATION @ 2LPM VIA NASAL CANNULA, TOLERATING WELL. BREATHING IS EVEN AND NONLABORED. IN NO ACUTE DISTRESS NOTED. WITH IV ACCESS AT LEFT FOREARM G#22; PATENT AND INTACT INFUSING WITH NS REGULATED @ 75 ML/HR; FLUSHES WELL. ABLE TO MAKE NEEDS KNOWN. WITH COMPLAINTS OF RIGHT KNEE AND LEG PAIN WITH SCALE OF 7/10. SAFETY MEASURES IMPLEMENTED: HEAD OF BED ELEVATED, CALL LIGHT AND TABLE WITHIN EASY REACH, SIDE RAILS UP X2, BED IN LOWEST LOCKED POSITION. WILL CONTINUE TO MONITOR.
--- NOTE | 2022-01-20 19:56 | NUR ---
RN NOTE PATIENT COMPLAINED OF PAIN ON RIGHT KNEE AND LEG WITH SCALE OF 7/10. PRN NORCO 5/325 1 TAB GIVEN PO ORDERED. VITAL SIGNS WITHIN NORMAL LIMITS. WILL CONTINUE TO MONITOR.
[2022-01-20 20:00] VITALS: BP 117/69
[2022-01-20] MEDS: GABAPENTIN 400 MG CAPSULE PO SCH (22:10)
[2022-01-20] MEDS: ALBUTEROL FS 2.5 MG/3 ML VIAL.NEB NEB SCH (23:11)
[2022-01-20] MEDS: LEVOFLOXACIN 250 MG /D5W 50 ML 250 MG in PREMIX 1 EA IV SCH (23:46)
[2022-01-21] VITALS: BP 113/65
[2022-01-21] MEDS: HYDROCODONE/APAP 5/325MG TABLET PO PRN ×4 (00:47→18:59)
--- NOTE | 2022-01-21 00:47 | NUR ---
RN NOTE PATIENT COMPLAINED OF PAIN ON RIGHT KNEE AND LEG WITH SCALE OF 7/10. PRN NORCO 5/325 1 TAB GIVEN PO ORDERED. BP AND MD WITHIN NORMAL LIMITS. WILL CONTINUE TO MONITOR.
[2022-01-21 06:33] LABS: BASOPHILS % (AUTO) 0.3 % (0.0-2.0); EOSINOPHILS % (AUTO) 2.6 % (0.0-6.0); HEMATOCRIT 31 % (33-45); HEMOGLOBIN 10.6 g/dL (11.5-14.8); LYMPHOCYTES # (AUTO) 1.9 K/uL (0.8-4.8); LYMPHOCYTES % (AUTO) 39.4 % (20.0-44.0); MEAN CORPUSCULAR HGB CONC 34 g/dl (31.0-36.0); MEAN CORPUSCULAR VOLUME 97 fL (82-100); MONOCYTES # (AUTO) 0.8 K/uL (0.1-1.30); MONOCYTES % (AUTO) 15.7 % (2.0-12.0); NEUTROPHILS # (AUTO) 2.1 K/uL (1.8-8.9); PLATELET COUNT (AUTO) 172 K/uL (150-450); RED BLOOD CELL COUNT(AUTO) 3.23 MIL/uL (4.0-5.2); WHITE BLOOD COUNT (AUTO) 4.9 K/uL (4.3-11.0)
--- NOTE | 2022-01-21 06:55 | NUR ---
RN NOTE PATIENT COMPLAINED OF PAIN ON RIGHT KNEE AND LEG WITH SCALE OF 7/10. PRN NORCO 5/325 1 TAB GIVEN PO ORDERED. BP AND OK WITHIN NORMAL LIMITS. WILL CONTINUE TO MONITOR.
--- NOTE | 2022-01-21 07:00 | NUR ---
MS RN CLOSING NOTES PATIENT IS IN BED; AWAKE, A/OX4. WITH O2 INHALATION @ 2LPM VIA NASAL CANNULA, TOLERATING WELL. BREATHING EVENLY AND NONLABORED. IN NO ACUTE DISTRESS NOTED. WITH IV ACCESS AT LEFT FOREARM G#22; PATENT AND INTACT INFUSING WITH NS REGULATED @ 75 ML/HR; FLUSHES WELL. ALL DUE MEDS GIVEN ORDERED. SAFETY MEASURES IN PLACE: HEAD OF BED ELEVATED, CALL LIGHT AND TABLE WITHIN EASY REACH, SIDE RAILS UP X2, BED IN LOWEST LOCKED POSITION. ENDORSED TO MORNING SHIFT FOR RAMANA.
[2022-01-21 07:18] LABS: CALCIUM, SERUM 7.8 mg/dL (8.5-10.1); CREATININE 0.7 mg/dL (0.6-1.3); MAGNESIUM 1.6 mg/dL (1.8-2.4); PHOSPHORUS 2.8 mg/dL (2.5-4.9); POTASSIUM 4.1 mmol/L (3.5-5.1)
--- NOTE | 2022-01-21 07:21 | NUR ---
MS RN OPENING NOTES RECEIVED PATIENT IN BED AWAKE, ALERT AND ORIENTED X4. ABLE TO MAKE NEEDS KNOWN, DENIES PAIN OR ANY DISCOMFORTS AT THIS TIME. ON 02 @ 2LPM VIA NASAL CANNULA, TOLERATING WELL. BREATHING EVEN AND NONLABORED WITH NO ACUTE DISTRESS NOTED. IV ACCESS ON LFA G#22; INTACT WITH IVF OF NS @ 75 ML/HR INFUSING WELL, NO S/S OF INFILTRATION AT SITE NOTED. SAFETY MEASURES IN PLACE: HEAD OF BED ELEVATED, CALL LIGHT AND TRAY TABLE WITHIN EASY REACH OF PT, SIDE RAILS UP X2, BED IN LOWEST LOCKED POSITION. WILL CONTINUE TO MONITOR.
[2022-01-21] MEDS: PANTOPRAZOLE 40 MG TABLET.DR PO SCH (07:53)
[2022-01-21] MEDS: LEVOTHYROXINE SODIUM 25 MCG TABLET PO SCH (07:53)
[2022-01-21] MEDS: ALBUTEROL FS 2.5 MG/3 ML VIAL.NEB NEB SCH ×3 (07:57→23:34)
[2022-01-21 08:00] VITALS: BP 128/71
[2022-01-21 08:48] LABS: THYROID STIMULATING HORMONE 0.969 uIU/mL (0.358-3.74)
[2022-01-21 09:02] LABS: EOSINOPHILS % (MANUAL) 3 % (0-4); LYMPHOCYTES % (MANUAL) 34 % (16-48); MONOCYTES % (MANUAL) 19 % (0-11.0); NEUTROPHILS % (MANUAL) 44 (42-76)
[2022-01-21 09:29] LABS: IRON, SERUM 48 ug/dl (50-175); TOTAL IRON BINDING CAPACITY 196 ug/dl (250-450)
[2022-01-21] MEDS: Magnesium 1GM/D5W 100ML PREMIX 100 ML IV SCH ×2 (09:32→10:35)
[2022-01-21] MEDS: CLOPIDOGREL BISULFATE 75 MG TABLET PO SCH (09:33)
[2022-01-21] MEDS: LORATADINE 10 MG TABLET PO SCH (09:34)
[2022-01-21] MEDS: METOPROLOL SUCCINATE 25 MG TAB.SR.24H PO SCH (09:34)
[2022-01-21] MEDS: IV NS 0.9% 1,000 ML IV PRN (10:51)
[2022-01-21 11:19] LABS: FERRITIN 207 ng/mL (8-388)
--- NOTE | 2022-01-21 19:09 | NUR ---
MS RN CLOSING NOTES: PATIENT IS IN BED AWAKE, ALERT AND ORIENTED X4. NO SIGNS OF DISTRESS OR DISCOMFORT VERBALIZED AT THIS TIME. ABLE TO MAKE NEEDS KNOWN. ON 02 @ 2LPM VIA NASAL CANNULA, TOLERATING WELL. SHE IS BREATHING EVEN AND NONLABORED WITH NO ACUTE RESPIRATORY DISTRESS AND SATURATING WELL FROM 94-98% THROUGHOUT THE SHIFT. IV ACCESS ON LFA G#22; INTACT WITH IVF OF NS @ 75 ML/HR INFUSING WELL, NO S/S OF INFILTRATION AT SITE NOTED. DRESSING C/D/I. FALL, ASPIRATION AND PRESSURE ULCER PRECAUTIONS MAINTAINED AT ALL TIMES. BED IN LOWEST LOCKED POSITION, HOB ELEVATED, SIDE RAILS UP X2-3, BED ALARM ON, CALL LIGHT AND TRAY TABLE WITHIN EASY REACH. PT. ABLE TO TURN FROM SIDE TO SIDE INDEPENDENTLY. WILL ENDORSE CONTINUITY OF CARE TO CONCRETE FINISHER RN.
--- NOTE | 2022-01-21 19:35 | NUR ---
MS RN OPENING NOTES RECEIVED PATIENT RESTING IN BED; AWAKE, ALERT AND ORIENTED X4. WITH OXYGEN INHALATION @ 2LPM VIA NASAL CANNULA, TOLERATING WELL. BREATHING IS EVEN AND NONLABORED. IN NO ACUTE DISTRESS NOTED. WITH IV ACCESS AT LEFT FOREARM G#22; PATENT AND INTACT INFUSING WITH NS REGULATED @ 75 ML/HR; FLUSHES WELL. ABLE TO MAKE NEEDS KNOWN. DENIES ANY PAIN OR DISCOMFORT AT THIS TIME. SAFETY MEASURES IMPLEMENTED: HEAD OF BED ELEVATED, CALL LIGHT AND TABLE WITHIN EASY REACH, SIDE RAILS UP X2, BED IN LOWEST LOCKED POSITION. WILL CONTINUE TO MONITOR.
[2022-01-21 20:43] VITALS: BP 165/67
[2022-01-21] MEDS ORDERED: ATORVASTATIN 10 MG TABLET PO SCH (21:00)
[2022-01-21] MEDS: GABAPENTIN 400 MG CAPSULE PO SCH (21:02)
[2022-01-21] MEDS: ENOXAPARIN SODIUM 30 MG/0.3 ML DISP.SYRIN SQ SCH (21:24)
[2022-01-21] MEDS: LEVOFLOXACIN 250 MG /D5W 50 ML 250 MG in PREMIX 1 EA IV SCH (23:45)
[2022-01-22] MEDS: HYDROCODONE/APAP 5/325MG TABLET PO PRN ×3 (02:51→12:25)
--- NOTE | 2022-01-22 02:51 | NUR ---
RN NOTE PATIENT COMPLAINED OF PAIN ON RIGHT KNEE AND LEG WITH SCALE OF 7/10. PRN NORCO 5/325 1 TAB GIVEN PO ORDERED; WILL CONTINUE TO MONITOR.
--- NOTE | 2022-01-22 06:50 | NUR ---
MS RN CLOSING NOTES PATIENT IN BED; AWAKE, A/OX4. WITH O2 INHALATION @ 2LPM VIA NASAL CANNULA, TOLERATING WELL. BREATHING EVENLY AND NONLABORED. IN NO ACUTE DISTRESS NOTED. WITH IV ACCESS AT LEFT FOREARM G#22; PATENT AND INTACT INFUSING WITH NS REGULATED @ 75 ML/HR; FLUSHES WELL. ALL DUE MEDS GIVEN ORDERED. SAFETY MEASURES IN PLACE: HEAD OF BED ELEVATED, CALL LIGHT AND TABLE WITHIN EASY REACH, SIDE RAILS UP X2, BED IN LOWEST LOCKED POSITION. ENDORSED TO MORNING SHIFT FOR RAMANA.
--- NOTE | 2022-01-22 07:25 | NUR ---
MS RN OPENING NOTES RECEIVED PATIENT IN BED AWAKE, ALERT AND ORIENTED X4. ABLE TO MAKE NEEDS KNOWN, COMPLAINED OF PAIN 7/10 ON BILATERAL KNEES, WILL GIVE NORCO 5/325 PO. ON 02 @ 2LPM VIA NASAL CANNULA, TOLERATING WELL. BREATHING EVEN AND UNLABORED WITH NO ACUTE DISTRESS NOTED. IV ACCESS ON LFA G#22; INTACT WITH IVF OF NS @ 75 ML/HR INFUSING WELL, NO S/S OF INFILTRATION AT SITE NOTED. SAFETY MEASURES IN PLACE: HEAD OF BED ELEVATED, CALL LIGHT AND TRAY TABLE WITHIN EASY REACH OF PT, SIDE RAILS UP X2, BED IN LOWEST LOCKED POSITION. WILL CONTINUE TO MONITOR.
[2022-01-22] MEDS: PANTOPRAZOLE 40 MG TABLET.DR PO SCH (07:43)
[2022-01-22] MEDS: LEVOTHYROXINE SODIUM 25 MCG TABLET PO SCH (07:43)
[2022-01-22 08:00] VITALS: BP 117/68
[2022-01-22] MEDS: ALBUTEROL FS 2.5 MG/3 ML VIAL.NEB NEB SCH ×2 (08:08→13:44)
[2022-01-22] MEDS: IV NS 0.9% 1,000 ML IV PRN (08:59)
[2022-01-22 09:00] VITALS: BP 117/68
[2022-01-22] MEDS: CLOPIDOGREL BISULFATE 75 MG TABLET PO SCH (09:00)
[2022-01-22] MEDS ORDERED: FERROUS SULFATE (325 MG) 325 MG/TAB TABLET PO SCH (09:00)
[2022-01-22] MEDS: METOPROLOL SUCCINATE 25 MG TAB.SR.24H PO SCH (09:00)
[2022-01-22] MEDS: LORATADINE 10 MG TABLET PO SCH (09:01)
[2022-01-22] MEDS ORDERED: NITR100C6 PO (09:33)
--- NOTE | 2022-01-22 15:49 | NUR ---
RN DISCHARGED NOTES PT DISCHARGED HOME IN STABLE CONDITION. A/O X4. ABLE TO MAKE NEEDS KNOWN. V/S TAKEN, STABLE AND RECORDED. ALL BELONGINGS ACCOUNTED FOR AND PT GRANDDAUGHTER MARK SIGNED BELONGINGS LIST. NAME ARMBAND REMOVED. IV ACCESS ON LFA G#22 REMOVED WITH NO ACTIVE BLEEDING NOTED, DRY PRESSURE DRESSING APPLIED AT SITE. HEALTH TEACHINGS GIVEN TO PT AND HER GRANDDAUGHTER MARK, BOTH VERBALIZED UNDERSTANDING. PT LEFT UNIT VIA WHEELCHAIR AT 1540 ACCOMPANIED BY CHEYENNE WRIGHT AND PT'S GRANDDAUGHTER MARK. MD AND CHARGE NURSE AWARE OF DISCHARGE.
[2022-01-22] MEDS ORDERED: LEVOFLOXACIN (250MG) 250 MG TABLET PO SCH (23:00)
== END 2022-01-22 16:00 | disposition home or self-care (01) | DRG 689 ==
LOC: ER 23:00 → TRANSITION 01-20 02:36 → MED 01-20 09:00
PROVIDERS: ADMIT Internal Medicine; ATTEND Internal Medicine
DX: N39.0 Urinary tract infection, site not specified (principal); N17.0 Acute kidney failure with tubular necrosis; Z20.822 Contact with and (suspected) exposure to COVID-19; I11.0 Hypertensive heart disease with heart failure; Z86.73 Personal history of transient ischemic attack (TIA), and cerebral infarction without residual deficits; I50.9 Heart failure, unspecified; E78.5 Hyperlipidemia, unspecified; I25.10 Atherosclerotic heart disease of native coronary artery without angina pectoris; M06.9 Rheumatoid arthritis, unspecified; Z90.49 Acquired absence of other specified parts of digestive tract; Z88.0 Allergy status to penicillin; Z90.710 Acquired absence of both cervix and uterus; Z79.02 Long term (current) use of antithrombotics/antiplatelets; Z79.82 Long term (current) use of aspirin; M81.0 Age-related osteoporosis without current pathological fracture; Z98.62 Peripheral vascular angioplasty status; G62.9 Polyneuropathy, unspecified; Z79.51 Long term (current) use of inhaled steroids; Z79.899 Other long term (current) drug therapy; E03.9 Hypothyroidism, unspecified; I25.2 Old myocardial infarction; K57.90 Diverticulosis of intestine, part unspecified, without perforation or abscess without bleeding; E83.42 Hypomagnesemia
CPT/HCPCS: 36415; 71045-TC; 80048-TC; 80076-TC; 81001; 82728-TC; 83540-TC; 83690-TC; 83735-TC; 84100-TC; 84443-TC; 84484-TC; 85025-TC; 85730-TC; 87081-TC; 87086-TC; 87186-TC; 94799-TC; 97116-TC; 97530-TC; A4216; C9803; G0378; J1650; J1956; J2270; J2405; J3475; J7030; J7040

== ENCOUNTER 2022-02-03 10:20 | Outpatient (CLI) | payer MEDICARE, OTHER ==
[~2022-02-03 10:20] MED LIST changes: -ASPI-1169 PO; -CIPR500T5 PO; -DENO60DI SQ; -MULT-1168 PO; +NITR100C6 PO; -PANT40TA49 PO; -POLY15DR40 EACHEYE
== END 2022-02-03 23:59 | disposition home or self-care (01) ==
LOC: MSC 10:20
PROVIDERS: ATTEND Internal Medicine
DX: Z09 Encounter for follow-up examination after completed treatment for conditions other than malignant neoplasm (principal); N39.0 Urinary tract infection, site not specified; I95.9 Hypotension, unspecified; M25.561 Pain in right knee; M25.562 Pain in left knee; M54.9 Dorsalgia, unspecified; Z91.81 History of falling; K59.00 Constipation, unspecified; I12.9 Hypertensive chronic kidney disease with stage 1 through stage 4 chronic kidney disease, or unspecified chronic kidney disease; N18.9 Chronic kidney disease, unspecified; I25.10 Atherosclerotic heart disease of native coronary artery without angina pectoris; Z98.61 Coronary angioplasty status; E03.9 Hypothyroidism, unspecified; M79.2 Neuralgia and neuritis, unspecified; Z79.891 Long term (current) use of opiate analgesic; E78.5 Hyperlipidemia, unspecified; Z87.01 Personal history of pneumonia (recurrent); M81.0 Age-related osteoporosis without current pathological fracture; S82.891D Other fracture of right lower leg, subsequent encounter for closed fracture with routine healing; Z79.899 Other long term (current) drug therapy

== ENCOUNTER 2022-05-26 11:11 | Outpatient (CLI) | payer MEDICARE, OTHER ==
[~2022-05-26 11:11] MED LIST changes: +IOHEXOL-350 100 ML VIAL IV ONE; +METOPROLOL TARTRATE INJ 5 MG/5 ML AMPUL ONE; +NITROGLYCERIN 0.4 MG/TAB BOTTLE ONE
== END 2022-05-26 23:59 | disposition home or self-care (01) ==
LOC: MSC 11:11
PROVIDERS: ATTEND Internal Medicine
DX: J06.9 Acute upper respiratory infection, unspecified (principal); Z87.09 Personal history of other diseases of the respiratory system; H10.9 Unspecified conjunctivitis; H61.23 Impacted cerumen, bilateral; N39.0 Urinary tract infection, site not specified; I95.9 Hypotension, unspecified; M25.561 Pain in right knee; M25.562 Pain in left knee; M54.9 Dorsalgia, unspecified; Z91.81 History of falling; K59.00 Constipation, unspecified; I12.9 Hypertensive chronic kidney disease with stage 1 through stage 4 chronic kidney disease, or unspecified chronic kidney disease; N18.9 Chronic kidney disease, unspecified; I25.10 Atherosclerotic heart disease of native coronary artery without angina pectoris; Z98.61 Coronary angioplasty status; E03.9 Hypothyroidism, unspecified; M79.2 Neuralgia and neuritis, unspecified; Z79.891 Long term (current) use of opiate analgesic; E78.5 Hyperlipidemia, unspecified; Z87.01 Personal history of pneumonia (recurrent); M81.0 Age-related osteoporosis without current pathological fracture; S82.891D Other fracture of right lower leg, subsequent encounter for closed fracture with routine healing; Z86.73 Personal history of transient ischemic attack (TIA), and cerebral infarction without residual deficits
CPT/HCPCS: J3490; Q9967

== ENCOUNTER → 2022-07-26 | Outpatient (CLI) | payer MEDICARE, OTHER ==
[~2022-07-26] MED LIST changes: -IOHEXOL-350 100 ML VIAL IV ONE; -METOPROLOL TARTRATE INJ 5 MG/5 ML AMPUL ONE; -NITROGLYCERIN 0.4 MG/TAB BOTTLE ONE
== END | disposition home or self-care (01) ==
LOC: MSC 14:30
PROVIDERS: ATTEND Internal Medicine
DX: M79.605 Pain in left leg (principal); W19.XXXA Unspecified fall, initial encounter; J06.9 Acute upper respiratory infection, unspecified; Z87.09 Personal history of other diseases of the respiratory system; H10.9 Unspecified conjunctivitis; H61.23 Impacted cerumen, bilateral; N39.0 Urinary tract infection, site not specified; I95.9 Hypotension, unspecified; M25.561 Pain in right knee; M25.562 Pain in left knee; M54.9 Dorsalgia, unspecified; K59.00 Constipation, unspecified; I12.9 Hypertensive chronic kidney disease with stage 1 through stage 4 chronic kidney disease, or unspecified chronic kidney disease; N18.9 Chronic kidney disease, unspecified; I25.10 Atherosclerotic heart disease of native coronary artery without angina pectoris; Z98.61 Coronary angioplasty status; M79.2 Neuralgia and neuritis, unspecified; Z79.891 Long term (current) use of opiate analgesic; E03.9 Hypothyroidism, unspecified; E78.5 Hyperlipidemia, unspecified; Z87.01 Personal history of pneumonia (recurrent); M81.0 Age-related osteoporosis without current pathological fracture; S82.891D Other fracture of right lower leg, subsequent encounter for closed fracture with routine healing

== ENCOUNTER → 2022-07-29 | Outpatient (CLI) | payer MEDICARE, OTHER | END | disposition home or self-care (01) | LOC: MSC 15:45 | PROVIDERS: ATTEND Internal Medicine | DX: M79.672 Pain in left foot (principal); Z91.81 History of falling; J06.9 Acute upper respiratory infection, unspecified; H10.9 Unspecified conjunctivitis; H61.23 Impacted cerumen, bilateral; N39.0 Urinary tract infection, site not specified; I95.9 Hypotension, unspecified; M25.561 Pain in right knee; M25.562 Pain in left knee; M54.9 Dorsalgia, unspecified; K59.00 Constipation, unspecified; I12.9 Hypertensive chronic kidney disease with stage 1 through stage 4 chronic kidney disease, or unspecified chronic kidney disease; N18.9 Chronic kidney disease, unspecified; I25.10 Atherosclerotic heart disease of native coronary artery without angina pectoris; Z98.61 Coronary angioplasty status; M79.2 Neuralgia and neuritis, unspecified; Z79.891 Long term (current) use of opiate analgesic; E03.9 Hypothyroidism, unspecified; E78.5 Hyperlipidemia, unspecified; Z87.01 Personal history of pneumonia (recurrent); M81.0 Age-related osteoporosis without current pathological fracture; S82.891D Other fracture of right lower leg, subsequent encounter for closed fracture with routine healing ==

== ENCOUNTER 2022-08-05 12:15 | Outpatient (CLI) | payer MEDICARE, OTHER | END 2022-08-05 23:59 | disposition home or self-care (01) | LOC: MSC 12:15 | PROVIDERS: ATTEND Internal Medicine | DX: M79.672 Pain in left foot (principal); M25.572 Pain in left ankle and joints of left foot; J06.9 Acute upper respiratory infection, unspecified; R91.1 Solitary pulmonary nodule; H10.9 Unspecified conjunctivitis; H61.23 Impacted cerumen, bilateral; N39.0 Urinary tract infection, site not specified; I95.9 Hypotension, unspecified; M25.561 Pain in right knee; M25.562 Pain in left knee; M54.9 Dorsalgia, unspecified; K59.00 Constipation, unspecified; I12.9 Hypertensive chronic kidney disease with stage 1 through stage 4 chronic kidney disease, or unspecified chronic kidney disease; N18.9 Chronic kidney disease, unspecified; I25.10 Atherosclerotic heart disease of native coronary artery without angina pectoris; Z98.61 Coronary angioplasty status; M79.2 Neuralgia and neuritis, unspecified; E03.9 Hypothyroidism, unspecified; E78.5 Hyperlipidemia, unspecified; Z87.01 Personal history of pneumonia (recurrent); M81.0 Age-related osteoporosis without current pathological fracture; S82.891D Other fracture of right lower leg, subsequent encounter for closed fracture with routine healing ==

== ENCOUNTER 2022-08-30 10:15 | Outpatient (CLI) | payer MEDICARE, OTHER ==
[2022-08-30 11:42] LABS: BASOPHILS % (AUTO) 0.3 % (0.0-2.0); EOSINOPHILS % (AUTO) 0.4 % (0.0-6.0); HEMATOCRIT 39 % (33-45); HEMOGLOBIN 12.9 g/dL (11.5-14.8); LYMPHOCYTES # (AUTO) 1.2 K/uL (0.8-4.8); LYMPHOCYTES % (AUTO) 23.2 % (20.0-44.0); MEAN CORPUSCULAR HGB CONC 33 g/dl (31.0-36.0); MEAN CORPUSCULAR VOLUME 98 fL (82-100); MONOCYTES # (AUTO) 0.6 K/uL (0.1-1.30); MONOCYTES % (AUTO) 12.3 % (2.0-12.0); NEUTROPHILS # (AUTO) 3.2 K/uL (1.8-8.9); NEUTROPHILS % (AUTO) 63.8 % (43.0-81.0); PLATELET COUNT (AUTO) 191 K/uL (150-450); RED BLOOD CELL COUNT(AUTO) 3.95 MIL/uL (4.0-5.2)
[2022-08-30 11:43] LABS: BILIRUBIN,URINE NEGATIVE (NEGATIVE); COLOR,URINE YELLOW (YELLOW); LEUKOCYTE ESTERASE ,URINE 3+ (NEGATIVE); NITRITE, URINE NEGATIVE (NEGATIVE); PH,URINE 6.5 (5.0-8.0); PROTEIN,URINE TRACE mg/dl (NEGATIVE); UGLUCOSE NEGATIVE (NEGATIVE); UROBILINOGEN,URINE 0.2 EU/dL (0.2)
[2022-08-30 11:56] LABS: URINE SODIUM, RANDOM 40 mmol/l (40-220); URINE TOTAL PROTEIN 36.5 mg/dL (0-11.9)
[2022-08-30 11:58] LABS: WBC,URINE TOO NUMEROUS TO COUN /HPF (0-3)
[2022-08-30 11:59] LABS: BACTERIA,URINE Many /HPF (None Seen)
[2022-08-30 12:17] LABS: C-REACTIVE PROTEIN 0.4 mg/dL (0.0-0.9); CHOLESTEROL 146 mg/dL (<200); HDL CHOLESTEROL 85 mg/dL (40-60); LDL 53 mg/dL (0-99); TRIGLYCERIDES 67 mg/dL (30-150)
[2022-08-30 12:28] LABS: ALANINE AMINOTRANSFERASE 28 U/L (12-78); ALBUMIN 3.5 g/dL (3.4-5.0); ALKALINE PHOSPHATASE 48 U/L (46-116); ASPARTATE AMINOTRANSFERASE 28 U/L (15-37); BILIRUBIN,TOTAL 0.4 mg/dL (0.2-1.0); CALCIUM, SERUM 8.6 mg/dL (8.5-10.1); CARBON DIOXIDE 24 mmol/L (21-32); CHLORIDE 94 mmol/L (98-107); CREATININE 0.8 mg/dL (0.6-1.3); GLUCOSE 107 mg/dL (74-106); MAGNESIUM 2.1 mg/dL (1.8-2.4); PHOSPHORUS 3.4 mg/dL (2.5-4.9); POTASSIUM 4.5 mmol/L (3.5-5.1); SODIUM SERUM 127 mmol/L (136-145); UREA NITROGEN, BLOOD 16 mg/dL (7-18)
== END 2022-08-30 23:59 | disposition home or self-care (01) ==
LOC: MSC 10:15
PROVIDERS: ATTEND Internal Medicine
DX: E87.1 Hypo-osmolality and hyponatremia (principal); I95.9 Hypotension, unspecified; I12.9 Hypertensive chronic kidney disease with stage 1 through stage 4 chronic kidney disease, or unspecified chronic kidney disease; N18.9 Chronic kidney disease, unspecified; I25.10 Atherosclerotic heart disease of native coronary artery without angina pectoris; Z98.61 Coronary angioplasty status; J30.9 Allergic rhinitis, unspecified; H04.129 Dry eye syndrome of unspecified lacrimal gland; R04.0 Epistaxis; H61.23 Impacted cerumen, bilateral; S82.892A Other fracture of left lower leg, initial encounter for closed fracture; K59.00 Constipation, unspecified; R91.1 Solitary pulmonary nodule; M25.561 Pain in right knee; M25.562 Pain in left knee; M54.9 Dorsalgia, unspecified; M79.2 Neuralgia and neuritis, unspecified; G62.9 Polyneuropathy, unspecified; E03.9 Hypothyroidism, unspecified; E78.5 Hyperlipidemia, unspecified; Z87.01 Personal history of pneumonia (recurrent); M81.0 Age-related osteoporosis without current pathological fracture; S82.891D Other fracture of right lower leg, subsequent encounter for closed fracture with routine healing; Z87.440 Personal history of urinary (tract) infections; Z79.899 Other long term (current) drug therapy
CPT/HCPCS: 80061; 83935; 85025; 87086; 83735; 83036; 84100; 85652; 84300; 81001; 84439; 82746; 84443; 82607; 80053; 86140; 82533; 82306; 84155; G0463; 36415

== ENCOUNTER 2022-12-13 10:43 | Outpatient (CLI) | payer MEDICARE, OTHER ==
[2022-12-13 12:55] LABS: ALBUMIN 3.4 g/dL (3.4-5.0); BILIRUBIN,TOTAL 0.5 mg/dL (0.2-1.0); CREATININE 0.6 mg/dL (0.6-1.3); POTASSIUM 5.5 mmol/L (3.5-5.1); TOTAL PROTEIN, SERUM 6.4 g/dL (6.4-8.2)
== END 2022-12-13 23:59 | disposition home or self-care (01) ==
LOC: MSC 10:43
PROVIDERS: ATTEND Internal Medicine
DX: M25.579 Pain in unspecified ankle and joints of unspecified foot (principal); E87.1 Hypo-osmolality and hyponatremia; R30.0 Dysuria; I95.9 Hypotension, unspecified; I12.9 Hypertensive chronic kidney disease with stage 1 through stage 4 chronic kidney disease, or unspecified chronic kidney disease; N18.9 Chronic kidney disease, unspecified; I25.10 Atherosclerotic heart disease of native coronary artery without angina pectoris; Z98.61 Coronary angioplasty status; K59.00 Constipation, unspecified; R91.1 Solitary pulmonary nodule; M54.9 Dorsalgia, unspecified; M79.2 Neuralgia and neuritis, unspecified; G62.9 Polyneuropathy, unspecified; E03.9 Hypothyroidism, unspecified; E78.5 Hyperlipidemia, unspecified; M81.0 Age-related osteoporosis without current pathological fracture; Z87.440 Personal history of urinary (tract) infections
CPT/HCPCS: 36415; 80053; G0463

== ENCOUNTER 2022-12-14 15:29 | Outpatient (CLI) | payer MEDICARE, OTHER ==
[2022-12-14 16:34] LABS: CREATININE, URINE 62.2 MG/DL (30.0-125.0); URINE TOTAL PROTEIN 18.3 mg/dL (0-11.9)
[2022-12-14 16:38] LABS: BILIRUBIN,URINE NEGATIVE (NEGATIVE); COLOR,URINE YELLOW (YELLOW); LEUKOCYTE ESTERASE ,URINE 1+ (NEGATIVE); NITRITE, URINE POSITIVE (NEGATIVE); PROTEIN,URINE NEGATIVE (NEGATIVE); UGLUCOSE NEGATIVE (NEGATIVE)
[2022-12-14 18:01] LABS: BACTERIA,URINE 3+ /HPF (None Seen); RBC,URINE NONE SEEN /HPF (0-2)
== END 2022-12-14 23:59 | disposition home or self-care (01) ==
LOC: LAB 15:29
PROVIDERS: ATTEND Internal Medicine
DX: R30.0 Dysuria (principal)
CPT/HCPCS: 36415; 81001; 82570-TC; 87086-TC

== ENCOUNTER → 2022-12-21 | Outpatient (CLI) | payer MEDICARE, OTHER | END | disposition home or self-care (01) | LOC: MSC 14:30 | PROVIDERS: ATTEND Internal Medicine | DX: R39.11 Hesitancy of micturition (principal); R30.0 Dysuria; E87.1 Hypo-osmolality and hyponatremia; E87.5 Hyperkalemia; I95.9 Hypotension, unspecified; I12.9 Hypertensive chronic kidney disease with stage 1 through stage 4 chronic kidney disease, or unspecified chronic kidney disease; N18.9 Chronic kidney disease, unspecified; I25.10 Atherosclerotic heart disease of native coronary artery without angina pectoris; Z98.61 Coronary angioplasty status; K59.00 Constipation, unspecified; M54.9 Dorsalgia, unspecified; G62.9 Polyneuropathy, unspecified; E03.9 Hypothyroidism, unspecified; E78.5 Hyperlipidemia, unspecified; M81.0 Age-related osteoporosis without current pathological fracture ==

== ENCOUNTER → 2022-12-23 | Outpatient (CLI) | payer MEDICARE, OTHER | END | disposition home or self-care (01) | LOC: MSC 14:30 | PROVIDERS: ATTEND Internal Medicine | DX: E87.1 Hypo-osmolality and hyponatremia (principal); R30.0 Dysuria; Z87.440 Personal history of urinary (tract) infections; I95.9 Hypotension, unspecified; I12.9 Hypertensive chronic kidney disease with stage 1 through stage 4 chronic kidney disease, or unspecified chronic kidney disease; N18.9 Chronic kidney disease, unspecified; I25.10 Atherosclerotic heart disease of native coronary artery without angina pectoris; Z98.61 Coronary angioplasty status; K59.00 Constipation, unspecified; M54.9 Dorsalgia, unspecified; G62.9 Polyneuropathy, unspecified; E03.9 Hypothyroidism, unspecified; E78.5 Hyperlipidemia, unspecified; M81.0 Age-related osteoporosis without current pathological fracture ==

== ENCOUNTER 2023-03-30 11:43 | Outpatient (CLI) | payer MEDICARE, OTHER ==
[2023-03-30 12:56] LABS: BASOPHILS % (AUTO) 0.2 % (0.0-2.0); EOSINOPHILS # (AUTO) 0.1 K/uL (0.0-0.7); EOSINOPHILS % (AUTO) 1.4 % (0.0-6.0); HEMATOCRIT 38 % (33-45); HEMOGLOBIN 12.5 g/dL (11.5-14.8); LYMPHOCYTES # (AUTO) 1.7 K/uL (0.8-4.8); LYMPHOCYTES % (AUTO) 29.7 % (20.0-44.0); MEAN CORPUSCULAR HEMOGLOBIN 33 PG (26.0-33.0); MEAN CORPUSCULAR HGB CONC 33 g/dl (31.0-36.0); MEAN CORPUSCULAR VOLUME 99 fL (82-100); MONOCYTES # (AUTO) 0.7 K/uL (0.1-1.30); NEUTROPHILS # (AUTO) 3.3 K/uL (1.8-8.9); NEUTROPHILS % (AUTO) 56.7 % (43.0-81.0); PLATELET COUNT (AUTO) 203 K/uL (150-450); RED BLOOD CELL COUNT(AUTO) 3.81 MIL/uL (4.0-5.2); RED CELL DISTRIBUTION WIDTH 14.8 % (11.5-15.0); WHITE BLOOD COUNT (AUTO) 5.8 K/uL (4.3-11.0)
[2023-03-30 13:49] LABS: ALBUMIN 3.5 g/dL (3.4-5.0); BILIRUBIN,TOTAL 0.5 mg/dL (0.2-1.0); CREATININE 0.8 mg/dL (0.6-1.3); MAGNESIUM 1.8 mg/dL (1.8-2.4); PHOSPHORUS 3.8 mg/dL (2.5-4.9); POTASSIUM 4.8 mmol/L (3.5-5.1)
[2023-03-30 15:33] LABS: URINE TOTAL PROTEIN 11.1 mg/dL (0-11.9)
== END 2023-03-30 23:59 | disposition home or self-care (01) ==
LOC: MSC 11:43
PROVIDERS: ATTEND Internal Medicine
DX: E87.1 Hypo-osmolality and hyponatremia (principal); R54 Age-related physical debility; R30.0 Dysuria; Z87.440 Personal history of urinary (tract) infections; J30.9 Allergic rhinitis, unspecified; I95.9 Hypotension, unspecified; I12.9 Hypertensive chronic kidney disease with stage 1 through stage 4 chronic kidney disease, or unspecified chronic kidney disease; N18.9 Chronic kidney disease, unspecified; I25.10 Atherosclerotic heart disease of native coronary artery without angina pectoris; Z98.61 Coronary angioplasty status; K59.00 Constipation, unspecified; M25.561 Pain in right knee; M25.562 Pain in left knee; M79.2 Neuralgia and neuritis, unspecified; G62.9 Polyneuropathy, unspecified; E03.9 Hypothyroidism, unspecified; E78.5 Hyperlipidemia, unspecified; M81.0 Age-related osteoporosis without current pathological fracture
CPT/HCPCS: 85025; 83735; 83935; 84100; 84300; 36415; 80053; 84156; 82043; 82570; G0463

== ENCOUNTER → 2023-04-07 | Outpatient (CLI) | payer MEDICARE, OTHER | END | disposition home or self-care (01) | LOC: MSC 14:15 | PROVIDERS: ATTEND Internal Medicine | DX: E87.1 Hypo-osmolality and hyponatremia (principal); R41.81 Age-related cognitive decline; R30.0 Dysuria; Z87.440 Personal history of urinary (tract) infections; J30.9 Allergic rhinitis, unspecified; I95.9 Hypotension, unspecified; I12.9 Hypertensive chronic kidney disease with stage 1 through stage 4 chronic kidney disease, or unspecified chronic kidney disease; N18.9 Chronic kidney disease, unspecified; I25.10 Atherosclerotic heart disease of native coronary artery without angina pectoris; Z98.61 Coronary angioplasty status; K59.00 Constipation, unspecified; M25.561 Pain in right knee; M25.562 Pain in left knee; G62.9 Polyneuropathy, unspecified; E03.9 Hypothyroidism, unspecified; E78.5 Hyperlipidemia, unspecified; M81.0 Age-related osteoporosis without current pathological fracture ==